=== PATIENT | female | born 1985 | race Caucasian/White ===

== ENCOUNTER 2024-05-07 08:00 | Emergency (ER) | payer OTHER ==
--- OUTSIDE RECORDS SUMMARY | 2024-05-07 08:05 | XMS REPORT | Continuity of Care Document ---
Author Name Unknown Address [address] [place] [address] [facility] Address [address] [place] [address] Care Team Providers Care [employer] Lot Name Role Phone Kylah Holland NP Primary Care Physician [phone] Que [place]ro Attending Clinician Unavailable Kashmir Bruner Attending Clinician Unavailable Maggi Mathur Attending Clinician Unavailable Jennie Attending Clinician Unavaila arik Allison Attending Clinician Unavail able Yusuf Attending Clinician Unavailab Ventura Bhat MD Attending Clinician [phone] VENTURA MATA Attending Clinician Unavailable Doctor Unassigned, [place] Attending Clinician U Malia Dennison July Attending Clinician Unavailyenifer Dubon MD Iris June Attending Clinician [phone] IRIS DUBON JUNE Attending Clinician Unavailab Que [place] Admitting Clinician Unavailable Maggi Mathur Admitting Clinician Unavailable Physician, No Primary Care Admitting Clinician U see KNOW, DOES_NOT Admitting Clinician Unavailable Jennie Admitting Clinician Unavaila arik Allison Admitting Clinician Unavail able Yusuf Admitting Clinician Unavailab VENTURA Bhat Admitting Clinician Unavailable Payers Payer Name Policy Type Policy Number Effective Date Expirati on Date Source [facility] () [id number] 2017 00:00:00 [facility] - SELECT ( - PPO) [id number] [facility] [id number] 2019 00:00:00 Problems Condition Name Condition Details Condition Category Status Onset Date Resolution Date Last Treatment Date Treating Clinician Comments Source Low back pain Low Back Pain Problem Active 05-24 00:00: 00 [facility] Lateral epicondyli tis of right humerus Lateral Epicondyli tis of Right Humerus Problem Active 05-24 00:00: 00 [facility] Spondylosi s with radiculopa thy Spondylosi s with Radiculopa thy Problem Active 05-24 00:00: 00 [facility] Inflammato ry polyarthro eric Inflammato ry Polyarthro eric Problem Active 10-30 00:00: 00 [facility] 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 Lumbosacra l Spondylosi s with Radiculopa thy Problem Active 10-30 00:00: 00 [facility] No known active problems No known active problems Disease [facility] Depression with anxiety Depression with anxiety Problem Active [facility] Other chronic pain Other chronic pain Problem Active [facility] Gastroesop hageal reflux disease, esophagiti s presence not specified Gastroesop hageal reflux disease, esophagiti s presence not specified Problem Active [facility] 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 Active [facility] 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 [facility] PTSD (post-trau matic stress disorder) PTSD (post-trau matic stress disorder) Problem Active [facility] Lumbar disc herniation Lumbar disc herniation Problem Active [facility] Zi' s thyroiditi s Zi' s thyroiditi s Problem Active [facility] Flu-like symptoms Flu-like symptoms Diagnosis Active [facility] Allergies, Adverse Reactions, Alerts Allergy Name Allergy Type Status Severity Reaction(s) Onset Date Inactive Date Treating Clinician Comments Source codeine DA Active U UNKNOWN 2022-02 00:00: 00 [facility] are [facility] CODIENE DA Active U NAUSEA VOMITING 2022-02 00:00: 00 [facility] are [facility] CODEINE DRUG INGREDI Active High N/V 04-23 00:00: 00 [facility] Codeine Propensi ty to adverse reaction s Active Nausea and/or Vomiting 04-23 00:00: 00 [facility] codeine DA Active MO 2016-02 00:00: 00 [facility] codeine DA Active MO NAUSEA AND SEVERE VOMITTING. 2016-02 00:00: 00 [facility] Codeine Allergy to substanc e Active Vomiting [facility] codeine Adverse Reaction Active Info Not Available [facility] Social History Social Habit Start Date Stop Date Quantity Comments Source Sexual orientation U [facility] Exposure to SARS-CoV-2 (event) 2020-12-21 00:00:00 2021-01-20 10:36:00 Not sure [facility] History of Social function 2021-01-20 00:00:00 2021-01-20 00:00:00 [facility] Tobacco use and exposure 2019-04-24 00:00:00 2019-04-24 00:00:00 Smokeless tobacco non-user [facility] Sex Assigned At 1985 00:00:00 1985 00:00:00 [facility] Smoking Status Start Date Stop Date Source Former Smoker [facility] Never smoked tobacco [facility] Medications Ordered Medication Name Filled Medication Name Start Date Stop Date Current Medication? Ordering Clinician Indication Dosage Frequency Signature (SIG) Comments Components Source sertraline HCl (ZOLOFT ORAL) 2020-02 10:54: 35 Yes Zoloft [facility] omeprazole 20 mg TbLD 2020-02 10:54: 35 Yes omeprazole Univer s [facility] Ferrous Sulfate (SLOW FE) 142 mg (45 mg iron) tablet 2020-02 10:54: 35 Yes Take by mouth. [facility] DULoxetine 60 mg capsule 2020-02 10:52: 25 01-20 00:00 :00 No 60mg Take 60 mg by mouth daily. [facility] L-LYSINE ORAL 2020-02 10:52: 16 01-20 00:00 :00 No Take by mouth daily. [facility] gabapentin 100 mg capsule 2020-02 10:52: 07 01-20 00:00 :00 No 100mg Take 100 mg by mouth as needed. [facility] levothyroxi ne sodium (SYNTHROID ORAL) 2020-02 10:51: 54 Yes 50ug Take 50 mcg by mouth daily. [facility] ketoconazol e 2 % shampoo 3- 00:00: 00 01-20 00:00 :00 No Apply to area(s) once daily as needed for Itching. [facility] clindamycin 1 % solution 3- 00:00: 00 01-20 00:00 :00 No [id number] Apply to affected area(s) 2 (two) times daily as needed for Rash or Itching. [facility] clobetasoL 0.05 % cream 2019- 3-04 00:00: 00 01-20 00:00 :00 No Apply to area(s) 2 (two) times daily. [facility] urea 40 % cream 3-04 00:00: 00 01-20 00:00 :00 No Apply to area(s) daily. [facility] Tamiflu Tamiflu 2018-02 00:00: 00 Yes Diogenes Quiroga 1 capsule [facility] L norgest/E estradiol-E estrad 0.15 mg-30 mcg (84)/10 mcg(7) tabs,3mos Take 1 tablet every day by oral route. L norgest/E estradiol-E estrad 0.15 mg-30 mcg (84)/10 mcg(7) tabs,3mos Take 1 tablet every day by oral route. No 1 Q1D L norgest/E estradiol- E estrad 0.15 mg-30 mcg (84)/10 mcg(7) tabs,3mos Take 1 tablet every day by oral route. [facility] lamotrigine 25 mg tablet TAKE TWO (2) TABLET(S) BY MOUTH AT BEDTIME. lamotrigine 25 mg tablet TAKE TWO (2) TABLET(S) BY MOUTH AT BEDTIME. No lamotrigin e 25 mg tablet TAKE TWO (2) TABLET(S) BY MOUTH AT BEDTIME. [facility] levothyroxi ne levothyroxi ne No levothyrox ine [facility] methocarbam ol 750 mg tablet TAKE ONE (1) TO TWO (2) TABLET(S) BY MOUTH THREE TIMES A DAY NEEDED FOR MUSCLE SPASMS OR PAIN. methocarbam ol 750 mg tablet TAKE ONE (1) TO TWO (2) TABLET(S) BY MOUTH THREE TIMES A DAY NEEDED FOR MUSCLE SPASMS OR PAIN. No methocarba mol 750 mg tablet TAKE ONE (1) TO TWO (2) TABLET(S) BY MOUTH THREE TIMES A DAY NEEDED FOR MUSCLE SPASMS OR PAIN. [facility] metoprolol tartrate 50 mg-hydrochl orothiazide 25 mg tablet 1 tablet every day by oral route. metoprolol tartrate 50 mg-hydrochl orothiazide 25 mg tablet 1 tablet every day by oral route. No 1 Q1D metoprolol tartrate 50 mg-hydroch lorothiazi de 25 mg tablet 1 tablet every day by oral route. [facility] omeprazole omeprazole No omeprazole [facility] Cymbalta Cymbalta Yes Diogenes Quiroga 1 capsule [facility] Synthroid Synthroid Yes Diogenes Quiroga 1 tablet on an empty stomach in the morning [facility] Pantoprazol e Sodium Pantoprazol e Sodium Yes Diogenes Quiroga 1 tablet [facility] Valtrex Valtrex Yes Diogenes Quiroga 1 tablet [facility] Gabapentin Gabapentin Yes Diogenes Quiroga (Prior Auth: Rx Ref#:[id number]) [facility] Vitamin D (Ergocalcif hermann) Vitamin D (Ergocalcif hermann) Yes Diogenes Quiroga (Prior Auth: Rx Ref#:[id number]) [facility] buspirone 5 mg tablet buspirone 5 mg tablet No buspirone 5 mg tablet [facility] diclofenac potassium 50 mg tablet TAKE 1 TABLET BY MOUTH TWICE DAILY NEEDED FOR PAIN / JOINT STIFFNESS diclofenac potassium 50 mg tablet TAKE 1 TABLET BY MOUTH TWICE DAILY NEEDED FOR PAIN / JOINT STIFFNESS No diclofenac potassium 50 mg tablet TAKE 1 TABLET BY MOUTH TWICE DAILY NEEDED FOR PAIN / JOINT STIFFNESS [facility] lamotrigine 25 mg tablet TAKE TWO (2) TABLET(S) BY MOUTH AT BEDTIME. lamotrigine 25 mg tablet TAKE TWO (2) TABLET(S) BY MOUTH AT BEDTIME. No lamotrigin e 25 mg tablet TAKE TWO (2) TABLET(S) BY MOUTH AT BEDTIME. [facility] levothyroxi ne 75 mcg tablet levothyroxi ne 75 mcg tablet No levothyrox ine 75 mcg tablet [facility] meloxicam 7.5 mg tablet Take 1 tablet every day by oral route. meloxicam 7.5 mg tablet Take 1 tablet every day by oral route. No 1 Q1D meloxicam 7.5 mg tablet Take 1 tablet every day by oral route. [facility] methocarbam ol 750 mg tablet TAKE ONE (1) TO TWO (2) TABLET(S) BY MOUTH THREE TIMES A DAY NEEDED FOR MUSCLE SPASMS OR PAIN. methocarbam ol 750 mg tablet TAKE ONE (1) TO TWO (2) TABLET(S) BY MOUTH THREE TIMES A DAY NEEDED FOR MUSCLE SPASMS OR PAIN. No methocarba mol 750 mg tablet TAKE ONE (1) TO TWO (2) TABLET(S) BY MOUTH THREE TIMES A DAY NEEDED FOR MUSCLE SPASMS OR PAIN. [facility] metoprolol succinate ER 25 mg tablet,exte nded release 24 hr TAKE ONE-HALF (1/2) TABLET(S) BY MOUTH DAILY. metoprolol succinate ER 25 mg tablet,exte nded release 24 hr TAKE ONE-HALF (1/2) TABLET(S) BY MOUTH DAILY. No metoprolol succinate ER 25 mg tablet,ext ended release 24 hr TAKE ONE-HALF (1/2) TABLET(S) BY MOUTH DAILY. [facility] tramadol 50 mg tablet TAKE ONE (1) TABLET(S) BY MOUTH EVERY SIX HOURS NEEDED FOR PAIN. tramadol 50 mg tablet TAKE ONE (1) TABLET(S) BY MOUTH EVERY SIX HOURS NEEDED FOR PAIN. No tramadol 50 mg tablet TAKE ONE (1) TABLET(S) BY MOUTH EVERY SIX HOURS NEEDED FOR PAIN. [facility] valacyclovi r 1 gram tablet valacyclovi r 1 gram tablet No valacyclov ir 1 gram tablet [facility] Vital Signs Vital Name Observation Time Observation Value Comments S ource BP Diastolic 2022-06-15 00:00:00 77 mm[Hg] [facility] Height 2022-06-15 00:00:00 67 [in_i] [facility] BMI (Body Mass Index) 2022-06-15 00:00:00 32.6 kg/m2 [facility] BP Systolic 2022-06-15 00:00:00 110 mm[Hg] [facility] Body Weight 2022-06-15 00:00:00 208 [lb_av] [facility] Body Weight 2022-05-24 00:00:00 209 [lb_av] [facility] Height 2022-05-24 00:00:00 67 [in_i] [facility] BMI (Body Mass Index) 2022-05-24 00:00:00 32.7 kg/m2 [facility] Systolic blood pressure 2021-01-20 16:51:00 135 mm[Hg] [facility] Diastolic blood pressure 2021-01-20 16:51:00 83 mm[Hg] [facility] Heart rate 2021-01-20 16:51:00 100 /min [facility] Respiratory rate 2021-01-20 16:51:00 20 /min [facility] Body height 2021-01-20 16:51:00 170.2 cm [facility] Body weight 2021-01-20 16:51:00 97.977 kg [facility] BMI 2021-01-20 16:51:00 33.83 kg/m2 [facility] Oxygen saturation in Arterial blood by Pulse oximetry 2021-01-20 16:51:00 98 /min [facility] Procedures Procedure Date / Time Performed Performing Clinician Source [id number] 2023-02-08 00:00:00 [facility] [id number] 2023-02-08 00:00:00 [facility] [id number] 2023-02-08 00:00:00 [facility] [id number] 2023-02-08 00:00:00 [facility] [id number] 2023-02-08 00:00:00 [facility] RADEX SPI LUMBOSAC MINIMUM 4 VIEWS 2022-05-24 00:00:00 [facility] TRANSTHORACIC ECHO (TTE) COMPLETE 2021-02-15 20:16:00 Ventura Mata [facility] ASSIGNMENT OF BENEFITS 2021-02-15 19:20:44 Docto r Unassigned, [place] [facility] HB ECG ROUTINE & RHYTHM STRIP 2021-01-20 17:00:11 Ventura Mata [facility] Laparoscopy 2015-07-25 00:00:00 Edwige Anne edical Eye Surgery [facility] Other [facility] Ophthalmologic Surgery [facility] Oral / Dental Surgery [facility] Plan of Care Planned Activity Planned Date Details Comments Source Diagnostic Test Pending 2022-06-15 00:00:00 [place] IgE Ab [Units/volume] in Serum [code = 6195-2] [facility] Instructions [facility] Encounters Start Date/Time End Date/Time Encounter Type Admission Type Attending Clinicians Care Facility Care Department Encounter ID Source 2023-03-08 17:24:00 2023-03-10 12:22:00 Inpatient EM Que Oro [facility] MAS [id number] [facility] [place] 2023-02-20 11:24:00 2023-02-20 13:39:00 Emergency EM Kashmir Bruner [facility] DALY [id number] [facility] 2023-02-08 00:11:00 2023-02-10 12:52:00 Inpatient Maggi Ochoa [facility] MEDI.01 [id number] [facility] 2023-02-07 00:00:00 2023-02-08 00:10:00 Outpatient CLOTILDE Mathur Morgan [facility] [id number] [facility] 2023-02-01 03:07:00 2023-02-01 03:07:00 Outpatient CLOTILDE Mathur Morgan [facility] ENDO [id number] [facility] 2022-06-15 00:00:00 2022-06-15 00:00:00 Outpatient GC_NATAN_ Landen_J PRIV PRIV [id number] [facility] 2022-06-15 00:00:00 2022-06-15 00:00:00 Lucas Schuster MD: [address] [place] [address] , Ph. [facility] [id number] [facility] 2022-06-14 00:00:00 2022-06-14 00:00:00 Outpatient GC_NATAN_ Landen_J PRIV PRIV [id number] [facility] 2022-06-13 00:00:00 2022-06-13 00:00:00 Outpatient GC_NAOMIC_ Landen_J PRIV PRIV [id number] [facility] 2022-06-13 00:00:00 2022-06-13 00:00:00 Outpatient GC_SWSUSYC_ Cooper_J PRIV PRIV [id number] [facility] 2022-06-08 00:00:00 2022-06-08 00:00:00 Outpatient PRIV PRIV [id number] [facility] 2022-05-24 00:00:00 2022-05-24 00:00:00 Outpatient FOG_Mehlhof Adrainna AO AO [id number] [facility] 2022-05-24 00:00:00 2022-05-24 00:00:00 Mainor Nieves MD: [id number] [place] [address] , Ph. [id number] [facility] [place] - F[facility] [id number] [facility] 2022-05-20 00:00:00 2022-05-20 00:00:00 Outpatient FOG_Mehlhof Adrianna AO AO [id number] [facility] 2022-05-12 00:00:00 2022-05-12 00:00:00 Outpatient FOG_Eliu_H Palak AO AO [id number] [facility] 2022-05-12 00:00:00 2022-05-12 00:00:00 Outpatient FOG_Eliu_H Palak AO AO [id number] [facility] 2022-01-25 00:00:00 2022-01-25 00:00:00 Outpatient GC_SWHAOMC_ Cooper_J [facility] [id number] [facility] 2021-02-16 00:00:00 2021-02-16 00:00:00 Patient Secure Ventura Mata [facility] [id number] [id number] [facility] 2021-02-15 13:23:53 2021-02-15 23:59:00 Outpatient Anjali VENTURA MATA [facility] [id number] [facility] 2021-02-15 13:23:53 2021-02-15 23:59:00 Hospital Encounter Ventura Mata [facility] [id number] [id number] [id number] [facility] 2021-02-15 00:00:00 2021-02-15 00:00:00 Orders Only Doctor Unassigned, [place] [facility] [id number] 350.1.13.10 4.2.7.2.686 [id number] [facility] 2021-02-01 09:00:00 2021-02-01 09:00:00 [facility] [id number] [facility] 2021-01-24 00:00:00 2021-01-24 00:00:00 Patient Secure Msg Malik [facility] [employer] [id number] 350.1.13.10 4.2.7.2.686 [id number] [facility] 2021-01-20 11:38:02 2021-01-20 23:59:00 [facility] [id number] 350.1.13.10 [id number] [id number] [facility] 2021-01-20 11:38:02 2021-01-20 23:59:00 [facility] [id number] [facility] 2021-01-20 11:38:02 2021-01-20 11:38:02 [facility] [id number] [facility] 2021-01-20 11:20:00 2021-01-20 11:31:59 [facility] [id number] [facility] 2021-01-20 10:37:24 2021-01-20 11:31:59 [facility] 1..840.114 350.1.13.10 4.2.7.2.686 [id number] [facility] 2021-01-20 00:00:00 2021-01-20 00:00:00 Orders Only Doctor Unassigned, [place] [facility] [id number] 350.1.13.10 4.2.7.2.686 [id number] [facility] 2021-01-13 09:00:00 2021-01-13 09:00:00 Outpatient Anjali SHANNON MATASILVINAROSEY [facility] [id number] [facility] 2021-01-05 00:00:00 2021-01-05 00:00:00 Orders Only Doctor Unassigned, [place] [facility] 1..840.114 350.1.13.10 4.2.7.2.686 [id number] [facility] 2019-11-01 14:30:00 2019-11-01 14:30:00 Outpatient Malia Nowak [facility]I [id number] [facility] 2019-04-24 14:24:09 2019-05-18 20:04:36 Office Visit Iris Dubon [facility] 1..840.114 350.1.13.10 4.2.7.2.686 [id number] 2019-04-24 14:40:00 2019-04-24 14:40:00 Outpatient IRIS JOHANSEN [facility] [id number] [facility] 2019-01-01 14:42:00 2019-01-01 14:42:00 Out[facility] [id number] 2019-01-01 14:30:00 2019-01-01 14:30:00 Outpatient [facility] [id number] [facility] 2018-10-17 08:30:00 2018-10-17 08:30:00 Outpatient [facility] [id number] [facility] 2018-08-02 10:00:00 2018-08-02 10:00:00 Outpatient [facility] [id number] [facility] 2018-06-21 14:45:00 2018-06-21 14:45:00 Outpatient [facility] [id number] [facility] 2018-02-27 13:45:00 2018-02-27 13:45:00 Outpatient [facility] [id number] [facility] 2018-01-29 11:15:00 2018-01-29 11:15:00 Outpatient [facility] [id number] [facility] Results Test Description Test Time Test Comments Results Result Co mments Source BASIC METABOLIC [id number] 07:09:00* Test Item Value Reference Range Interpretation Comme nts SODIUM (test code = NA) 139 mmol/L 136-145 N POTASSIUM (test code = K) 4.2 mmol/L 3.5-5.1 N CHLORIDE (test code = CL) 108 mmol/l 98-107 H CARBON DIOXIDE (test code = CO2) 23 mmol/L 20-31 N GLUCOSE (test code = GLU) 109 mg/dL 74-106 H BLOOD UREA NITROGEN (test code = BUN) < 5 mg/dL 9-23 L GLOMERULAR FILTRATION RATE (test code = GFR) >=60 max estimate mL/min >60 The Glomerular Filtration Rate is a calculated parameterbased on serum Creatinine, patient age and sex. GFR valuesless than 60 mL/min/1.73 square meters are indicative ofChronic Kidney Disease. Values less than 15 mL/min/1.73square meters indicate Kidney failure. The calculation forGFR is based on the CKD-EPI (202) calculation. This formulais race indifferent and is the recommended formula for GFRby the National Kidney Foundation for Adults.The GFR will not calculate if the sex is unknown or if thepatient's age is <18 years. CREATININE (test code = CREAT) 0.50 mg/dL 0.55-1.02 L CALCIUM (test code = CA) 8.1 mg/dL 8.7-10.4 L REPEAT RESULT 8. 1 [id number] 07:09:00* Test Item Value Reference Range Interpretation Comme nts PHOSPHOROUS (test code = PHOS) 3.2 mg/dL 2.4-5.1 N [id number] 07:09:00* Test Item Value Reference Range Interpretation Comme nts MAGNESIUM (test code = MAG) 1.8 mg/dL 1.6-2.6 N UA RFLX MICR CULT IF [id number] 19:27:00* Test Item Value Reference Range Interpretation Comme nts UA COLOR (test code = COLU) YELLOW DISCRIPT YELLOW UA APPEARANCE (test code = APPU) HAZY DISCRIPT CLEAR A UA GLUCOSE DIPSTICK (test code = DGLUU) NEGATIVE mg/dL NEGATIVE UA BILIRUBIN DIPSTICK (test code = BILU) MODERATE NEGATIVE A UA KETONE DIPSTICK (test code = KETU) >=80 mg/dL NEGATIVE A UA SPECIFIC GRAVITY (test code = SGU) 1.015 1.005-1.030 UA BLOOD DIPSTICK (test code = MAGNOLIA) NEGATIVE NEGATIVE UA PH DIPSTICK (test code = PRAFUL) 5.0 5.0-9.0 UA PROTEIN DIPSTICK (test code = PROU) TRACE mg/dL NEGATIVE UA UROBILINOGEN DIPSTICK (test code = URO) 0.2 mg/dL 0.2-1.0 UA NITRITE DIPSTICK (test code = JESÚS) NEGATIVE NEGATIVE UA LEUKOCYTE ESTERASE DIPSTICK (test code = LEUU) NEGATIVE NEGATIVE UA WBC (test code = WBCU) NONE SEEN #WBC/HPF 0-2 UA RBC (test code = RBCU) 0-2 #RBC/HPF 0-2 UA BACTERIA (test code = BACU) NONE SEEN /HPF NONE-TRACE UA SQUAMOUS CELLS (test code = SQU) OCCASIONAL /LPF NONE-TRACE Indication for culture: RiskForSepsis-no oth srcCOMPREHENSIVE METABOLIC PANEL 2023-03-08 19:08:00* Test Item Value Reference Range Interpretation Comme nts SODIUM (test code = NA) 138 mmol/L 136-145 N POTASSIUM (test code = K) 4.1 mmol/L 3.5-5.1 N CHLORIDE (test code = CL) 102 mmol/l 98-107 N CARBON DIOXIDE (test code = CO2) 26 mmol/L 20-31 N GLUCOSE (test code = GLU) 91 mg/dL 74-106 N BLOOD UREA NITROGEN (test code = BUN) 12 mg/dL 9-23 N GLOMERULAR FILTRATION RATE (test code = GFR) >=60 max estimate mL/min >60 The Glomerular Filtration Rate is a calculated parameterbased on serum Creatinine, patient age and sex. GFR valuesless than 60 mL/min/1.73 square meters are indicative ofChronic Kidney Disease. Values less than 15 mL/min/1.73square meters indicate Kidney failure. The calculation forGFR is based on the CKD-EPI (2020) calculation. This formulais race indifferent and is the recommended formula for GFRby the National Kidney Foundation for Adults.The GFR will not calculate if the sex is unknown or if thepatient's age is <18 years. CREATININE (test code = CREAT) 0.70 mg/dL 0.55-1.02 N TOTAL PROTEIN (test code = PROT) 7.6 g/dL 5.7-8.2 N ALBUMIN (test code = ALB) 4.5 g/dL 3.2-4.8 N CALCIUM (test code = CA) 9.9 mg/dL 8.7-10.4 N BILIRUBIN TOTAL (test code = BILT) 0.3 mg/dL 0.3-1.2 N SGOT/AST (test code = AST) 22 U/L <34 N SGPT/ALT (test code = ALT) 17 U/L 10-49 N ALKALINE PHOSPHATASE (test code = ALKP) 80.0 U/L 46-116 N [id number] 19:08:00* Test Item Value Reference Range Interpretation Comme nts LIPASE (test code = LIP) 71 U/L 12-53 H [id number] 19:08:00* Test Item Value Reference Range Interpretation Comme nts MAGNESIUM (test code = MAG) 1.9 mg/dL 1.6-2.6 N HCG SERUM [id number] 18:56:00* Test Item Value Reference Range Interpretation Comme nts HCG SERUM QUAL (test code = HCGQL) NEGATIVE NEGATIVE CBC W/MANUAL [id number] 18:35:00* Test Item Value Reference Range Interpretation Comme nts WHITE BLOOD CELL (test code = WBC) 13.4 x10 3/uL 4.8-10.8 H RED BLOOD CELL (test code = RBC) 4.59 x10 6/uL 4.20-5.40 N HEMOGLOBIN (test code = HGB) 13.0 g/dL 12.0-16.0 N HEMATOCRIT (test code = HCT) 41.0 % 37.0-47.0 N MEAN CELL VOLUME (test code = MCV) 89.3 fL 81.0-99.0 N MEAN CELL HGB (test code = MCH) 28.3 pg 27-31 N MEAN CELL HGB CONCENTRATION (test code = MCHC) 31.7 G/DL 33-36.5 L RED CELL DISTRIBUTION WIDTH (test code = RDW) 13.0 % 12.9-16.9 N PLATELET COUNT (test code = PLT) 261 x10 3/uL 150-440 N MEAN PLATELET VOLUME (test c ode = MPV) 10.0 fL 8.9-12.4 N TOTAL CELLS COUNTED (test co de = TCC) 100 #CELLS SEGMENTED NEUTROPHILS (test code = SEG) % 49-71 LYMPHOCYTE (test code = LYMPH) % 20-40 BASIC METABOLIC [id number] 13:04:00* Test Item Value Reference Range Interpretation Comme nts SODIUM (test code = NA) 142 mmol/L 136-145 N POTASSIUM (test code = K) 4.3 mmol/L 3.5-5.1 N CHLORIDE (test code = CL) 103 mmol/l 98-107 N CARBON DIOXIDE (test code = CO2) 24 mmol/L 20-31 N GLUCOSE (test code = GLU) 78 mg/dL 74-106 N BLOOD UREA NITROGEN (test code = BUN) 11 mg/dL 9-23 N GLOMERULAR FILTRATION RATE (test code = GFR) >=60 max estimate mL/min >60 The Glomerular Filtration Rate is a calculated parameterbased on serum Creatinine, patient age and sex. GFR valuesless than 60 mL/min/1.73 square meters are indicative ofChronic Kidney Disease. Values less than 15 mL/min/1.73square meters indicate Kidney failure. The calculation forGFR is based on the CKD-EPI (2020) calculation. This formulais race indifferent and is the recommended formula for GFRby the National Kidney Foundation for Adults.The GFR will not calculate if the sex is unknown or if thepatient's age is <18 years. CREATININE (test code = CREAT) 0.80 mg/dL 0.55-1.02 N CALCIUM (test code = CA) 9.3 mg/dL 8.7-10.4 N LIVER FUNCTION [id number] 13:04:00* Test Item Value Reference Range Interpretation Comme nts TOTAL PROTEIN (test code = PROT) 7.5 g/dL 5.7-8.2 N ALBUMIN (test code = ALB) 4.6 g/dL 3.2-4.8 N BILIRUBIN TOTAL (test code = BILT) 0.4 mg/dL 0.3-1.2 N BILIRUBIN DIRECT (test code = BILD) 0.1 mg/dL <0.3 N SGOT/AST (test code = AST) 25 U/L <34 N SGPT/ALT (test code = ALT) 21 U/L 10-49 N ALKALINE PHOSPHATASE (test c ode = ALKP) 89.0 U/L 46-116 N [id number] 13:04:00* Test Item Value Reference Range Interpretation Comme nts LIPASE (test code = LIP) 39 U/L 12-53 N [id number] 13:04:00* Test Item Value Reference Range Interpretation Comme nts TROPONIN-I (test code = TROPI) < 2.5 pg/mL 27.36-66.23 L HCG SERUM [id number] 12:56:00* Test Item Value Reference Range Interpretation Comme nts HCG SERUM QUAL (test code = HCGQL) NEGATIVE NEGATIVE CBC W/AUTO [id number] 12:42:00* Test Item Value Reference Range Interpretation Comme nts WHITE BLOOD CELL (test code = WBC) 11.2 x10 3/uL 4.8-10.8 H RED BLOOD CELL (test code = RBC) 4.96 x10 6/uL 4.20-5.40 N HEMOGLOBIN (test code = HGB) 14.1 g/dL 12.0-16.0 N HEMATOCRIT (test code = HCT) 42.2 % 37.0-47.0 N MEAN CELL VOLUME (test code = MCV) 85.1 fL 81.0-99.0 N MEAN CELL HGB (test code = MCH) 28.4 pg 27-31 N MEAN CELL HGB CONCENTRATION (test code = MCHC) 33.4 G/DL 33-36.5 N RED CELL DISTRIBUTION WIDTH (test code = RDW) 12.0 % 12.9-16.9 L PLATELET COUNT (test code = PLT) 278 x10 3/uL 150-440 N MEAN PLATELET VOLUME (test c ode = MPV) 11.3 fL 8.9-12.4 N NEUTROPHIL % (test code = NT%) 68.3 % 42.2-75.2 N LYMPHOCYTE % (test code = LY%) 21.0 % 20.5-51.1 N MONOCYTE % (test code = MO%) 7.0 % 1.7-9.3 N EOSINOPHIL % (test code = EO%) 3.0 % 0.0-7.0 N BASOPHIL % (test code = BA%) 0.3 % 0-2.5 N NEUTROPHIL # (test code = NT#) 7.65 x10 3/uL 1.80-7.70 N LYMPHOCYTE # (test code = LY#) 2.35 x10 3/uL 1.00-4.80 N MONOCYTE # (test code = MO#) 0.78 x10 3/uL 0.00-0.80 N EOSINOPHIL # (test code = EO#) 0.33 x10 3/uL 0.00-0.45 N BASOPHIL # (test code = BA#) 0.03 x10 3/uL 0.0-0.20 N - XR CHEST 2 [id number] 12:10:00 [facility] : 1985 Sex: FPatient Name: AZALIA DOS SANTOS Unit No: [id number] EXAMS: CPT CODE: [id number] XR CHEST 2 V 67935 Chest 2 views 02/20/2023 12:09 PM CLINICAL HISTORY: Pain COMPARISON: None available LOCATION: W1 FINDINGS: The lungs are clear, save for linear atelectasis or scarring in the left lung base. Cardiomediastinal contours are within normal limits. The central pulmonary vasculature is not engorged. The visualized skeleton is intact. IMPRESSION: No acute radiographic abnormalities. at 1210 Reported and signed by: LEELA HERNANDEZ M.D. CC: Kashmir Bruner MD; Maggi Mathur MD Technologist: ZOHREH CARREON RT(R) Fluoro Time: DAP(Gy m2): Air Kerma (mGy): Trscr Dt/Tm: 02/20/2023 (1210) by:[email or web address] Printed Date/Time: 02/20/2023 (1213) Name: AZALIA DOS SANTOS [facility] Phys: Kashmir Moncada MD [address] : 1985 Age: 37 Sex: [place] [address] Loc: P.ERS Exam Date: 02/20/2023 Status: REG ER PH: FAX: PAGE 1 Signed [id number] 18:05:00* Test Item Value Reference Range Interpretation Comme nts SURGICAL (test code = SR) RUN DATE: 02/09/23 [place] [facility] - LAB PAGE 1 RUN TIME: 1805 Specimen Inquiry RUN USER: INTERFACE PATIENT: AZALIA DOS SANTOS LOC: PLetty9S POD C U #: [id number] AGE/SX: 37/F ROOM: [facility] RE02/08/23[facility] DR: Maggi Mathur MD : [birth year] BED: 1 DIS: STATUS: ADM IN TLOC: SPEC #: [id number] RECD: 02/08/23 STATUS: DALLIN REByron #: [id number] ANTWON: 02/08/[address] [facility] [address]: Maggi Mathur MD ENTERED: 02/08/23 SP TYPE: SURGICAL OTHR DR: No Primary or Family PhysicianORDERED: 30986/2, 46867/4, ANATOMIC SPEC HISTOLOGY: TISSUE ID BLK PCS ZAHEER LEV / PROCEDURE DISPOSITION ____ ___ ___ ___ ___ LIVER, NOS A 1 2 STOMNT B 1 1 TISSUES: A. LIVER, NOS - Liver Biopsy B. STOMACH SUBTOTAL / TOTAL RESECTION NOT TUMOR/SLEEVE - Partial Stomach FINAL DIAGNOSIS A. LIVER, WEDGE BIOPSY: -Portion of subcapsular hepatic parenchyma with minimal macrovesicular steatosis and no significant inflammation (see comment). -Findings are insufficient for diagnosis of steatohepatitis. -No increase in fibrosis, stage 0 of 4. -See microscopic description. B. STOMACH, PARTIAL, SLEEVE GASTRECTOMY: -Portion of oxyntic mucosa lined stomach without significant histologic abnormality. -Negative for significant inflammation or helicobacter pylori organisms. Microscopic: Part A- Wedge biopsy of liver contains adequate number of portal tracts, whichshow minimal inflammation. Interface hepatitis is absent. The lobular parenchyma displaysno lymphocytic inflammation. Moderate macrovesicular steatosis is present in 5% of thebiopsy, with no acidophil bodies and no ballooned hepatocytes. The trichrome stain showsno increase in fibrosis. The reticulin stain shows no architectural distortion of hepaticparenchyma. The iron stain is negative. PAS stain is negative for intracytoplasmicglobules. GROSS DESCRIPTION A.Received in formalin, labeled with the patient's name, MRN number and "liver biopsy" is atan-brown portion of liver measuring 1.0 x 0.4 x 0.2 cm. Sectioning shows pink brownhomogenous cut surfaces and the specimen is submitted entirely in A 1. B.Received in formalin, labeled with the patient's name, MRN number and "partial stomach"is a partial gastrectomy specimen measuring 22.0 cm in length by 2.0-4.0 cm in diameter. The serosal surface is hutson- pink, focally congested and slightly hyperemic, with a minimalamount of perigastric fat. There is a staple line along one side.Upon opening there is amoderate amount of hemorrhagic material. The mucosa is hutson-pink and focally erythematous,no lesions or polyps are grossly seen. Communications Project Lead sections are submitted in B1. CONTINUED ON NEXT PAGE RUN DATE: 02/09/23 [facility] - LAB PAGE 2 RUN TIME: 1805 Specimen Inquiry RUN USER: INTERFACE SPEC #: [id number] PATIENT: AZALIA DOS SANTOS #[id number] (Continued) GROSS DESCRIPTION (Continued) Technical component performed at [facility] [facility], [facility], [address] Immunohistochemistry: This test was developed and its performancecharacteristics determined by this laboratory. It has not been approved nordoes it need approval by the [place] FDA. Appropriate positive and negative controlsare reviewed and judged to be acceptable. This laboratory is certified underthe Clinical Laboratory Improvement Amendments (CLIA-88) as qualified toperform high complexity clinical laboratory testing. CLINICAL INFORMATION Morbid Obesity Signed SIGNATURE ON FILE QuintinLux 02/09/23 6038 END OF REPORT BASIC METABOLIC [id number] 06:45:00* Test Item Value Reference Range Interpretation Comme nts SODIUM (test code = NA) 137 mmol/L 136-145 N POTASSIUM (test code = K) 4.0 mmol/L 3.5-5.1 N CHLORIDE (test code = CL) 107 mmol/l 98-107 N CARBON DIOXIDE (test code = CO2) 22 mmol/L 20-31 N GLUCOSE (test code = GLU) 150 mg/dL 74-106 H BLOOD UREA NITROGEN (test code = BUN) < 5 mg/dL 9-23 L GLOMERULAR FILTRATION RATE (test code = GFR) >=60 max estimate mL/min >60 The Glomerular Filtration Rate is a calculated parameterbased on serum Creatinine, patient age and sex. GFR valuesless than 60 mL/min/1.73 square meters are indicative ofChronic Kidney Disease. Values less than 15 mL/min/1.73square meters indicate Kidney failure. The calculation forGFR is based on the CKD-EPI (2020) calculation. This formulais race indifferent and is the recommended formula for GFRby the National Kidney Foundation for Adults.The GFR will not calculate if the sex is unknown or if thepatient's age is <18 years. CREATININE (test code = CREAT) 0.60 mg/dL 0.55-1.02 N CALCIUM (test code = CA) 8.2 mg/dL 8.7-10.4 L [id number] 06:45:00* Test Item Value Reference Range Interpretation Comme nts PHOSPHOROUS (test code = PHOS) 1.0 mg/dL 2.4-5.1 L [id number] 06:45:00* Test Item Value Reference Range Interpretation Comme nts MAGNESIUM (test code = MAG) 1.7 mg/dL 1.6-2.6 N CBC W/AUTO [id number] 06:22:00* Test Item Value Reference Range Interpretation Comme nts WHITE BLOOD CELL (test code = WBC) 14.2 x10 3/uL 4.8-10.8 H RED BLOOD CELL (test code = RBC) 4.52 x10 6/uL 4.20-5.40 N HEMOGLOBIN (test code = HGB) 13.1 g/dL 12.0-16.0 N HEMATOCRIT (test code = HCT) 38.6 % 37.0-47.0 N MEAN CELL VOLUME (test code = MCV) 85.4 fL 81.0-99.0 N MEAN CELL HGB (test code = MCH) 29.0 pg 27-31 N MEAN CELL HGB CONCENTRATION (test code = MCHC) 33.9 G/DL 33-36.5 N RED CELL DISTRIBUTION WIDTH (test code = RDW) 11.9 % 12.9-16.9 L PLATELET COUNT (test code = PLT) 246 x10 3/uL 150-440 N MEAN PLATELET VOLUME (test code = MPV) 10.9 fL 8.9-12.4 N NEUTROPHIL % (test code = NT%) 92.0 % 42.2-75.2 H LYMPHOCYTE % (test code = LY%) 5.5 % 20.5-51.1 L MONOCYTE % (test code = MO%) 1.8 % 1.7-9.3 N EOSINOPHIL % (test code = EO%) 0.0 % 0.0-7.0 N BASOPHIL % (test code = BA%) 0.1 % 0-2.5 N NEUTROPHIL # (test code = NT#) 13.03 x10 3/uL 1.80-7.70 H LYMPHOCYTE # (test code = LY#) 0.78 x10 3/uL 1.00-4.80 L MONOCYTE # (test code = MO#) 0.26 x10 3/uL 0.00-0.80 N EOSINOPHIL # (test code = EO#) 0.00 x10 3/uL 0.00-0.45 N BASOPHIL # (test code = BA#) 0.01 x10 3/uL 0.0-0.20 N UR HCG [id number] 06:11:00* Test Item Value Reference Range Interpretation Comme nts UR HCG QUAL (test code = HCGQLU) NEGATIVE NEGATIVE COMPREHENSIVE METABOLIC [id number] 13:43:00* Test Item Value Reference Range Interpretation Comme nts SODIUM (test code = NA) 137 mmol/L 136-145 N POTASSIUM (test code = K) 3.9 mmol/L 3.5-5.1 N CHLORIDE (test code = CL) 103 mmol/l 98-107 N CARBON DIOXIDE (test code = CO2) 26 mmol/L 20-31 N GLUCOSE (test code = GLU) 88 mg/dL 74-106 N BLOOD UREA NITROGEN (test code = BUN) 12 mg/dL 9-23 N GLOMERULAR FILTRATION RATE (test code = GFR) >=60 max estimate mL/min >60 The Glomerular Filtration Rate is a calculated parameterbased on serum Creatinine, patient age and sex. GFR valuesless than 60 mL/min/1.73 square meters are indicative ofChronic Kidney Disease. Values less than 15 mL/min/1.73square meters indicate Kidney failure. The calculation forGFR is based on the CKD-EPI (2020) calculation. This formulais race indifferent and is the recommended formula for GFRby the National Kidney Foundation for Adults.The GFR will not calculate if the sex is unknown or if thepatient's age is <18 years. CREATININE (test code = CREAT) 0.80 mg/dL 0.55-1.02 N TOTAL PROTEIN (test code = PROT) 7.7 g/dL 5.7-8.2 N ALBUMIN (test code = ALB) 4.8 g/dL 3.2-4.8 N CALCIUM (test code = CA) 9.4 mg/dL 8.7-10.4 N BILIRUBIN TOTAL (test code = BILT) 0.3 mg/dL 0.3-1.2 N SGOT/AST (test code = AST) 30 U/L <34 N SGPT/ALT (test code = ALT) 29 U/L 10-49 N ALKALINE PHOSPHATASE (test code = ALKP) 83.0 U/L 46-116 N PROTHROMBIN [id number] 13:34:00* Test Item Value Reference Range Interpretation Comme nts PROTHROMBIN TIME PATIENT (test code = PTP) 11.9 SECONDS 10.3-12.9 N INTERNATIONAL NORMAL RATIO (test code = INR) 1.07 0.9-1.11 N INR goals are individualized based on patient specificfactors. The following are only general guidelines: Indications: INR Goal:1. Treatment of venous thromboembolism and 2.0 - 3.0 systemic anticoagulation in a variety of conditions, including atrial fibrillation and mechanical heart valves 2. Mechanical mitral and tricuspid valves, 2.5 - 3.5 systemic anticoagulation for high-risk conditions THROMBOPLASTIN TIME [id number] 13:34:00* Test Item Value Reference Range Interpretation Comme nts THROMBOPLASTIN TIME PARTIAL (test code = PTT) 38.7 secs 23.8-34.8 H INTERPRETATIVE D GASTON: Therapeutic range: Unfractionated Heparin: 60-90 seconds Argatroban: 60-90 seconds UA RFLX MICR CULT IF [id number] 13:28:00* Test Item Value Reference Range Interpretation Comme nts UA COLOR (test code = COLU) YELLOW DISCRIPT YELLOW UA APPEARANCE (test code = APPU) CLEAR DISCRIPT CLEAR UA GLUCOSE DIPSTICK (test code = DGLUU) NEGATIVE mg/dL NEGATIVE UA BILIRUBIN DIPSTICK (test code = BILU) NEGATIVE NEGATIVE UA KETONE DIPSTICK (test code = KETU) >=80 mg/dL NEGATIVE A UA SPECIFIC GRAVITY (test code = SGU) 1.010 1.005-1.030 UA BLOOD DIPSTICK (test code = MAGNOLIA) TRACE NEGATIVE A UA PH DIPSTICK (test code = PRAFUL) 6.0 5.0-9.0 UA PROTEIN DIPSTICK (test code = PROU) NEGATIVE mg/dL NEGATIVE UA UROBILINOGEN DIPSTICK (test code = URO) 0.2 mg/dL 0.2-1.0 UA NITRITE DIPSTICK (test code = JESÚS) NEGATIVE NEGATIVE UA LEUKOCYTE ESTERASE DIPSTICK (test code = LEUU) NEGATIVE NEGATIVE UA WBC (test code = WBCU) NONE SEEN #WBC/HPF 0-2 UA RBC (test code = RBCU) NONE SEEN #RBC/HPF 0-2 UA BACTERIA (test code = BACU) NONE SEEN /HPF NONE-TRACE UA SQUAMOUS CELLS (test code = SQU) 1+ /LPF NONE-TRACE A Indication for culture: Dysuria/FrequencySpecimen Description: CLEAN CATCHSpec Comments: PRE OPCBC W/AUTO [id number] 13:24:00* Test Item Value Reference Range Interpretation Comme nts WHITE BLOOD CELL (test code = WBC) 9.9 x10 3/uL 4.8-10.8 N RED BLOOD CELL (test code = RBC) 4.71 x10 6/uL 4.20-5.40 N HEMOGLOBIN (test code = HGB) 13.6 g/dL 12.0-16.0 N HEMATOCRIT (test code = HCT) 40.6 % 37.0-47.0 N MEAN CELL VOLUME (test code = MCV) 86.2 fL 81.0-99.0 N MEAN CELL HGB (test code = MCH) 28.9 pg 27-31 N MEAN CELL HGB CONCENTRATION (test code = MCHC) 33.5 G/DL 33-36.5 N RED CELL DISTRIBUTION WIDTH (test code = RDW) 11.9 % 12.9-16.9 L PLATELET COUNT (test code = PLT) 272 x10 3/uL 150-440 N MEAN PLATELET VOLUME (test c ode = MPV) 9.3 fL 8.9-12.4 N NEUTROPHIL % (test code = NT%) 72.9 % 42.2-75.2 N LYMPHOCYTE % (test code = LY%) 19.5 % 20.5-51.1 L MONOCYTE % (test code = MO%) 4.2 % 1.7-9.3 N EOSINOPHIL % (test code = EO%) 2.9 % 0.0-7.0 N BASOPHIL % (test code = BA%) 0.2 % 0-2.5 N NEUTROPHIL # (test code = NT#) 7.18 x10 3/uL 1.80-7.70 N LYMPHOCYTE # (test code = LY#) 1.92 x10 3/uL 1.00-4.80 N MONOCYTE # (test code = MO#) 0.41 x10 3/uL 0.00-0.80 N EOSINOPHIL # (test code = EO#) 0.29 x10 3/uL 0.00-0.45 N BASOPHIL # (test code = BA#) 0.02 x10 3/uL 0.0-0.20 N [id number] 11:02:00* Test Item Value Reference Range Interpretation Comme nts SURGICAL (test code = SR) RUN DATE: 02/03/23 [facility] - LAB PAGE 1 RUN TIME: 1102 Specimen Inquiry RUN USER: INTERFACE MARCELO ENT: AZALIA DOS SANTOS LOC: RICHARD U #: [id number] AGE/SX: 37/F ROOM: RE02/01/23[facility] DR: Maggi Mathur MD : [birth year] BED: DIS: STATUS: DEP [facility] TLOC: SPEC #: [id number] RECD: 02/01/23 STATUS: DALLIN REByron #: [id number] ANTWON: 02/01/[address] [facility] [address]: Maggi Mathur MD ENTERED: 02/01/23 SP TYPE: SURGICAL OTHR DR: Self Referred No Primary Care Physician Undefined ProviderORDERED: 48317/2, [id number], ANATOMIC SPEC HISTOLOGY: TISSUE ID BLK PCS ZAHEER LEV / PROCEDURE DISPOSITION ____ ___ ___ ___ ___ ANTRUM A 1 3 GASTRO ESOPH B 1 3 TISSUES: A. ANTRUM - Antrum Bx B. GASTRO ESOPHAGEAL - GE Junction Bx FINAL DIAGNOSIS A. STOMACH, ANTRUM, ENDOSCOPIC BIOPSY: - Mild chronic inactive gastritis. - Negative for Helicobacter by immunostain (see comment). - Negative for intestinal metaplasia, dysplasia, and malignancy. B. GASTROESOPHAGEAL JUNCTION, ENDOSCOPIC BIOPSY: - Squamocolumnar mucosa with chronic inflammation. - Negative for intraepithelial eosinophilia. - Negative for intestinal metaplasia, dysplasia, and malignancy. COMMENT: Chronic gastritis was identified on initial histologic examination of specimen A,raising the possibility of Helicobacter gastritis. However, since organisms are not seenon routine H E stain, Helicobacter immunostain is performed to exclude the possibilityof infection. GROSS DESCRIPTION A. Received in formalin, labeled with the patient's name, MRN number and "antrum Bx" is asingle hutson-pink soft tissue fragment measuring 1.0 cm in greatest dimension (height is 0.1cm), specimen is filtered and submitted in toto in A1. B. Specimen is received in formalin, labeled with the patient's name, MRN number and "GEjunction Bx" is a single hutson-pink soft tissue fragment measuring 0.3 cm in greatestdimension, filtered submitted in toto in B1. Technical component performed at [facility] [facility], [place] [facility], [address] CONTINUED ON NEXT PAGE RUN DATE: 02/03/23 [facility] - LAB PAGE 2 RUN TIME: 1102 Specimen Inquiry RUN USER: INTERFACE SPEC #: [id number] PATIENT: AZALIA DOS SANTOS BETTINA #[id number] (Continued) ------- GROSS DESCRIPTION (Continued) Immunohistochemistry: This test was developed and its performancecharacteristics determined by this laboratory. It has not been approved nordoes it need approval by the [place] FDA. Appropriate positive and negative controlsare reviewed and judged to be acceptable. This laboratory is certified undert Clinical Laboratory Improvement Amendments (CLIA-88) as qualified toperform high complexity clinical laboratory testing. MICROSCOPIC DESCRIPTION Unless gross only, the diagnosis is based upon microscopic examination. CLINICAL INFORMATION Hiatal Hernia, Gastritis, Esophagitis ------- Signed SIGNATURE ON FILE Que Chang Vika 02/03/23 1102 END OF REPORT UR HCG [id number] 10:18:00* Test Item Value Reference Range Interpretation Comme nts UR HCG QUAL (test code = HCGQLU) NEGATIVE NEGATIVE - MRI L-SPINE W/O [id number] 16:16:00Patient Name: AZALIA ROBERTSON Unit No: [id number] EXAMS: CPT CODE: [id number] MRI L-SPINE W/O CONT 28465 DIAGNOSIS: 1. At L1-2 there is no evidence for disc bulge or herniation, bony canal or foraminal stenosis. 2. At L2-3 there is no evidence for disc bulge or herniation, bony canal or foraminal stenosis. 3. At L3-4 there is no evidence for disc bulge or herniation, bony canal or foraminal stenosis. 4. At L4-5 there is 3 mm of left foraminal asymmetric disc bulging with moderate narrowing of the left neural foramen and mild to moderate narrowing on the right. Mild narrowing of the central canal is seen with facet and ligamentum flavum hypertrophic and degenerative change. 5. At L5-S1 thereis no evidence for disc bulge or herniation, bony canal or foraminal stenosis. COMMENT: COMPARISON:No prior exams available. Scans were performed in the sagittal and axial planes utilizing T1, T2 and inversion recovery images. Schmorl's node formation is seen at L1-2. The upper 4 discs are mildly desiccated. Disc configurations are as described. Spondylitic changes are as noted. The conus is in the expected location. The description these findings assumes a normal count of 5 lumbar type vertebra. at 1616 Reported and signed by: Dave Shay MD CC: Malia Nowak MD Technologist: JEANNETTE RIGGINS RT(R) Transcribed D/ (1616) tNEFTALYL [facility] NAME: AZALIA ROBERTSON [address] [facility] PHYS: Malia Vitale MD : 1985 AGE: 34 SEX: F [place] [address] LOC: Y.MRI PHONE #: [phone] EXAM DATE: 11/01/2019 STATUS: REG CLI FAX #: [phone] RAD #: D/C DT PAGE 1 Signed Report Patient Name: AZALIA ROBETRSON Unit No: [id number] EXAMS: CPT CODE:[id number] MRI L-SPINE W/O CONT 22816 (Continued) Orig Print D/T: S: 11/01/2019 (1619) [facility] NAME: AZALIA ROBERTSON [address] [facility] PHYS: Malia Vitale MD : 1985AGE: 34 SEX: F [place] [address] LOC: CASSANDRA PHONE #: [phone] EXAM DATE: 11/01/2019 STATUS: RACHID CLLesa FAX #: [phone] RAD #: D/C DT PAGE 2 Signed Report Notes Date/Time Note Provider Source 2023-03-10 09:44:00 [facility] ([facility] Med Order Sheet REPORT #: [id number] REPORT STATUS: Signed DATE: 03/10/23 TIME: 943 PATIENT: AZALIA DOS SANTOS UNIT #: [id number] ROOM #: [facility] BED: 1 : [birth year] AGE: 37 SEX: F ATTEND: Que Oro MD ADM AUTHOR: George Aguirre APRN ATTENTION *EDITS and/or ADDENDA must be made in Patient Keeper for this note. * * Edits and ammendments created in [facility] are not visible * * in Patient Keeper or the legal medical record (HPF). * Discharge Medication Reconciliation DISCHARGE MEDICATION LIST busPIRone Tab (Buspar Tab) Dose: 5 MG PO BID calcium citrate tablet Dose: Oral - TAKES 200MG TID Route: ORAL L-Lysine tablet (lysine) Dose: 500 MG PO BID lamoTRIgine Tab (LaMICtal Tab) Dose: 100 MG PO DAILY Levothyroxine Tab (Synthroid Tab) Dose: 75 MCG PO DAILY METHYL FOLATE Dose: PO - TAKES 1000MCG DAILY Metoprolol Succinate XL Tab (Toprol XL Tab) Dose: 25 MG PO DAILY Omeprazole Dose: Oral - TAKES 40MG DAILY Route: ORAL ULTRA SOLO WITH IRON Dose: PO - TAKES DAILY VITAMIN D3 WITH K2 Dose: PO - TAKES DAILY VITRONC Dose: PO - TAKES 65MG DAILY Lidocaine Oral Soln 2% (Xylocaine Oral Soln 2%) Dose: 15ML PO Before meals, Disp: 3 x 100 mL bottle, Refills: 1 Nystatin Oral Liquid (Mycostatin Oral Liquid) Dose: 5 ML Swish Swal QID, Disp: 3 x 60 mL bottle, Refills: 0 STOPPED HOSPITAL MEDICATIONS Dc'd: Acetaminophen Oral Liquid (Tylenol Oral Liquid) 650MG PO Q4H PRN pain 1-3/temp > 100.5/headacheDc'd: Dexamethasone Inj (Decadron Inj) 4MG IV Q6HRDc'd: diphenhydrAMINE Inj (Benadryl Inj) 25MG IV Q6H PRN itching/rashDc'd: Enalaprilat Inj (Vasotec Inj) 2.5MG IV Q6H PRN sbp greater than 160Dc'd: Enoxaparin 40 mg/0.4 ml Inj (Lovenox 40 mg/0.4 ml Inj) 40MG SubQ DAILYDc'd: Fluconazole Tab (Diflucan Tab) 200 MG PO Now ONCEDc'd: Ketorolac Inj (Toradol Inj) 15MG IV Q6HR PRN pain scale 7-10Dc'd: Lidocaine Oral Soln 2% (Xylocaine Oral Soln 2%) 15ML PO Q3H PRN dysphagiaDc'd: LORazepam Inj (Ativan Inj) 0.5MG IV Q6H PRN agitation or anxietyDc'd: Mag/Al/Simeth Oral Liquid (Maalox Max Oral Liquid) 30ML PO Q6H PRN indigestion/heartburnDc'd: Melatonin 6MG PO BEDTIME PRN insomniaDc'd: Ondansetron Inj (Zofran Inj) 4MG IV Q4H PRN nausea and vomitingDc'd: Prochlorperazine Inj (Compazine Inj) 5MG IV Q4H PRN see special instructionsDc'd: Sodium Chloride 0.9% (NS) 1000ML 100 MLS/HR IV Dc'd: traMADol Tab (Ultram Tab) 50MG PO Q4H PRN pain scale 4-6 (use 1st) at 0944 ATTENTION *EDITS and/or ADDENDA must be made in Patient Keeper for this note. * * Edits and ammendments created in HTP are not visible * * in Patient Keeper or the legal medical record ([facility]). * RPT #: [id number] END OF REPORT [facility] 2023-03-10 09:44:00 [facility] ([facility]) Internal Med. D/C Summary REPORT #: [id number] REPORT STATUS: Signed DATE: 03/10/23 TIME: 943 PATIENT: AZALIA DOS SANTOS UNIT #: [id number] ROOM #: P.0711 BED: 1 : 84 AGE: 37 SEX: F ATTEND: Que Oro MD ADM AUTHOR: George Aguirre APRN ATTENTION *EDITS and/or ADDENDA must be made in Patient Keeper for this note. * * Edits and ammendments created in HTP are not visible * * in Patient Keeper or the legal medical record ([facility]). * -- CO-SIGNATURE -- COMMENTS: Patient seen and examined Plan of care discussed with Dr. Mathur Patient's questions answered to her satisfaction Agree with the findings as detailed by George Aguirre APRN Discharge plans are enumerated below Total time spent coordinating discharge care > 55 mins Signed in PatientKeeper by QUE ORO MD on 03/10/23 at 23:51 -- PROBLEMS/PROCEDURES -- ADMISSION DATE: 03/08/23 ADMITTING DIAGNOSES: - Acute epigastric pain - Dehydration - Depression with anxiety - Dysphagia - Elevated lipase - Hepatomegaly - Hiatal hernia with gastroesophageal reflux disease and esophagitis - Hypertension - Hypothyroidism - Iron deficiency anemia - Leukocytosis - Obesity, Class II, BMI 35-39.9 - MAGDIEL (obstructive sleep apnea) DISCHARGE DATE: 03/10/23 DISCHARGE DIAGNOSES: - Acute epigastric pain - Dehydration - Depression with anxiety - Dysphagia - Elevated lipase - Hepatomegaly - Hiatal hernia with gastroesophageal reflux disease and esophagitis - Hypertension - Hypothyroidism - Iron deficiency anemia - Leukocytosis - Obesity, Class II, BMI 35-39.9 - MAGDIEL (obstructive sleep apnea) -- HOSPITAL COURSE -- HOSPITAL COURSE: Patient is a 37 year old woman with PMH of hypothyroidism, depression with anxiety, obstructive sleep apnea, hypertension, abnormal uterine bleeding, iron deficiency anemia, hiatal hernia with reflux esophagitis, and morbid obesity who underwent a robotic-assisted laparoscopic sleeve gastrectomy, hiatal hernia repair, and liver wedge biopsy by Dr. Mathur on 02/09/24. Patient struggled with postoperative incisional pain and nausea. Symptoms improved with medical management. She otherwise had an uncomplicated postoperative course, and was discharged home on 02/10/23. Patient returned to the Emergency Department (03/08/23) with complaint of unbearable pain and nauseas when trying to swallow solid food. Liquids were somewhat tolerable. Symptoms started about 2 weeks prior to admission, and had become progressively worse. She was afraid to eat due to severity of her symptoms. Labs showed an elevated Lipase level at 71, and elevated WBC at 13.4k. CT Abdomen/Pelvis showed a recurrent small hiatal hernia. Patient was admitted for further evaluation and management. Her symptoms improved with a trial of viscous lidocaine. Patient was empirically treated for possible contributing esophageal fungal infection. She is now able to tolerate a pureed diet. Discussed with Dr. Yu. Vasquez for discharge. -- DISCHARGE MEDICATIONS -- ALLERGIES: codeine (Unknown - Allergy) CODIENE (Unknown - Allergy) [EXTERNAL] codeine CODEINE (UNKNOWN - External allergies are for display only, consider adding to medical record for drug interaction check) DISCHARGE MEDICATIONS: Please refer to Discharge Medication list for a complete list of discharge medications busPIRone Tab (Buspar Tab) 5 MG PO BID calcium citrate tablet Oral (TAKES 200MG TID Route: ORAL) L-Lysine tablet (lysine) 500 MG PO BID lamoTRIgine Tab (LaMICtal Tab) 100 MG PO DAILY Levothyroxine Tab (Synthroid Tab) 75 MCG PO DAILY Lidocaine Oral Soln 2% (Xylocaine Oral Soln 2%) 15ML PO Before meals, Disp: 3 x 100 mL bottle, Refills: 1 METHYL FOLATE PO METHYL FOLATE (TAKES 1000MCG DAILY) Metoprolol Succinate XL Tab (Toprol XL Tab) 25 MG PO DAILY Nystatin Oral Liquid (Mycostatin Oral Liquid) 5 ML Swish Swal QID, Disp: 3 x 60 mL bottle, Refills: 0 Omeprazole Oral (TAKES 40MG DAILY Route: ORAL) ULTRA SOLO WITH IRON PO ULTRA SOLO WITH IRON (TAKES DAILY) VITAMIN D3 WITH K2 PO VITAMIN D3 WITH K2 (TAKES DAILY) VITRONC PO VITRONC (TAKES 65MG DAILY) -- DISCHARGE INSTRUCTIONS -- ADMISSION ORDERS: Discharge Follow Up Details: Consulting provider 1:: MAGGI MATHUR MD Consulting provider 1:: . Consult phone:: [phone] Consult follow up timeframe:: In 1-2 weeks Consult special instructions:: Patient to call for follow up appointment. PK DISCHARGE ORDERS: DC Parameters and Instructions Details: Discharge to:: Home/Self Care Meds to be Given:(Enter specifics): Fluconazole 200 mg po x 1, Nystatin 5 ml swish and swallow x 1 Notify attending when discharge parameter met:: No Diet:: Bariatric pureed diet. Additional Discharge Routines:: PCP Follow-Up, [employer] Follow-Up PCP follow up timeframe:: In 1-2 weeks PCP special instructions:: Patient to call for follow up appointment. Details: DC Order - No eCQM ADDTIONAL DISCHARGE INSTRUCTIONS: Emergency Instructions: The patient was instructed to present to the nearest Emergency Department or call 911 should their symptoms return or worsen.; -- OBJECTIVE -- VITALS (03/09 09:44 - 03/10 09:44): Temperature C: 36.5 (36.5 - 37.0) Temperature source: Oral Pulse Rate 77 (68 - 96) Respiratory rate: 1 (1 - 19) Blood pressure: 99/62 (99/62 - 114/78) I/Os (03/09 07:00 - 03/10 07:00): Net 1,836.00 Intake 3,036.00 Output 1,200 -EXAM- GENERAL: alert and cooperative, appears comfortable. In no distress. Obese HEAD: Normocephalic, atraumatic. EYES: PERRL, EOM intact, conjunctiva and sclera clear, without nystagmus, lids normal. EARS: normal canals, grossly normal hearing. NOSE: No deformity, no discharge, no inflammation, no lesions. MOUTH: Oropharynx without deformities or lesions, normal mucosa. NECK: No masses, no thyromegaly, no abnormal cervical nodes, trachea midline. CHEST: Grossly normal appearance. LUNGS: Clear bilaterally with normal respiratory effort. HEART: Regular rate and rhythm, normal S1, S2, no murmurs, no rubs, no gallops, no clicks. ABDOMEN: Soft, non-tender, no organomegaly, no masses noted. MUSCULOSKELETAL: No deformity, no scoliosis noted of thoracic or lumbar spine, joint ROM grossly normal EXTREMITIES: No clubbing, no cyanosis, no edema. NEUROLOGICAL: No focal deficits, cranial nerves II-XII grossly intact, normal sensation, normal coordination, normal muscle strength, normal tone. PULSES: Pulses normal in all extremities. SKIN: Intact without significant lesions, or rashes. LYMPH NODES: No significant node adenopathy. PSYCHIATRIC: Alert and oriented to time, person, place. Normal mood and affect, intact judgment and insight. -- DATA -- LABS BASIC METABOLIC PANEL (03/10/23 04:59) SODIUM 139 POTASSIUM 4.2 CHLORIDE 108H H CARBON DIOXIDE 23 GLUCOSE 109H H BLOOD UREA NITROGEN < 5L L GLOMERULAR FILTRATION RATE >=60 max estimate CREATININE 0.50L L CALCIUM 8.1 D L CBC W/AUTO DIFF (03/10/23 04:59) WHITE BLOOD CELL 13.6H H RED BLOOD CELL 4.23 HEMOGLOBIN 12.3 HEMATOCRIT 37.0 MEAN CELL VOLUME 87.5 MEAN CELL HGB 29.1 MEAN CELL HGB CONCENTRATION 33.2 RED CELL DISTRIBUTION WIDTH 12.8 L PLATELET COUNT 249 MEAN PLATELET VOLUME 11.1 NEUTROPHIL % 86.7 H LYMPHOCYTE % 8.4 L MONOCYTE % 4.0 EOSINOPHIL % 0.0 BASOPHIL % 0.1 NEUTROPHIL # 11.77 H LYMPHOCYTE # 1.14 MONOCYTE # 0.54 EOSINOPHIL # 0.00 BASOPHIL # 0.01 MAG (03/10/23 04:59) MAGNESIUM 1.8 PHOS (03/10/23 04:59) PHOSPHOROUS 3.2 Signed in PatientKeeper by George Aguirre APRN on 03/10/23 at 09:53 Cosigned by QUE ORO MD on 03/10/23 at 23:51 at 2351 at 2351 ATTENTION *EDITS and/or ADDENDA must be made in Patient Keeper for this note. * * Edits and ammendments created in [facility] are not visible * * in Patient Keeper or the legal medical record ([facility]). * RPT #: [id number] END OF REPORT [facility] 2023-03-09 11:09:00 [facility] ([facility]) Internal Med. Progress Note REPORT #: [id number] REPORT STATUS: Signed DATE: 03/09/23 TIME: 1109 PATIENT: AZALIA DOS SANTOS UNIT #: [id number] ROOM #: [employer] BED: 1 : 84 AGE: 37 SEX: F ATTEND: Que Oro MD ADM AUTHOR: George Aguirre APRN ATTENTION *EDITS and/or ADDENDA must be made in Patient Keeper for this note. * * Edits and ammendments created in HTP are not visible * * in Patient Keeper or the legal medical record ([facility]). * -- CO-SIGNATURE -- COMMENTS: Patient seen and examined at bedside Plan of care discussed with patient, all questions answered to her satisfaction Agree with the findings as detailed by George Aguirre [employer]ER Plans for the multiple complex medical problems are enumerated below Total time spent direct care, counseling and coordinating care > 55 mins Signed in PatientKeeper by QUE ORO MD on 03/09/23 at 23:12 -- ASSESSMENT AND PLAN -- PROBLEMS: 1: Dysphagia A/P: Tolerating bariatric clear liquid diet, but reports pain with solid food. Trial of viscous lidocaine Decadron 4mg IV q6hr 2: Acute epigastric pain A/P: CT scan shows small hiatal hernia (03/08/23) Pain management Protonix [address] Mathur consulted 3: Obesity, Class II, BMI 35-39.9 A/P: s/p robotic-assisted laparoscopic sleeve gastrectomy (02/08/23) Banana bag given 4: Hypertension A/P: Continue Metoprolol XL 25 mg daily Enaliprilat prn 5: Hiatal hernia with gastroesophageal reflux disease and esophagitis A/P: s/p robotic-assisted laparoscopic hiatal hernia repair (02/08/23) CT scan shows small hiatal hernia (03/08/23) Protonix 6: MAGDIEL (obstructive sleep apnea) A/P: non-compliant with CPAP 7: Hypothyroidism A/P: Continue levothyroxine 8: Iron deficiency anemia A/P: Monitor Hgb 9: Depression with anxiety A/P: Continue Buspar and Lamictal 10: Hepatomegaly A/P: s/p robotic-assisted laparoscopic liver wedge biopsy to r/o SIMS (02/08/23) 11: Leukocytosis A/P: Remains afebrile. No e/o sepsis at present. Monitor 12: Elevated lipase A/P: Continue IV hydration Monitor -- SUBJECTIVE -- PATIENT NARRATIVE: No acute events overnight. Tolerating bariatric clear liquid diet, but reports pain with solid food. Will start trial of viscous lidocaine -- OBJECTIVE -- VITALS (03/08 11:09 - 03/09 11:09): Temperature F: 98.1 Temperature C: 36.7 (36.5 - 36.9) Temperature source: Oral Pulse Rate 86 (84 - 97) Respiratory rate: 18 (16 - 18) Blood pressure: 116/82 (95/68 - 128/89) I/Os (03/08 07:00 - 03/09 07:00): Net 2,180.00 Intake 3,280.00 Output 1,100 -EXAM- GENERAL: alert and cooperative, appears comfortable. In no distress. Obese HEAD: Normocephalic, atraumatic. EYES: PERRL, EOM intact, conjunctiva and sclera clear, without nystagmus, lids normal. EARS: normal canals, grossly normal hearing. NOSE: No deformity, no discharge, no inflammation, no lesions. MOUTH: Oropharynx without deformities or lesions, normal mucosa. NECK: No masses, no thyromegaly, no abnormal cervical nodes, trachea midline. CHEST: Grossly normal appearance. LUNGS: Clear bilaterally with normal respiratory effort. HEART: Regular rate and rhythm, normal S1, S2, no murmurs, no rubs, no gallops, no clicks. ABDOMEN: Soft, non-tender, no organomegaly, no masses noted. MUSCULOSKELETAL: No deformity, no scoliosis noted of thoracic or lumbar spine, joint ROM grossly normal EXTREMITIES: No clubbing, no cyanosis, no edema. NEUROLOGICAL: No focal deficits, cranial nerves II-XII grossly intact, normal sensation, normal coordination, normal muscle strength, normal tone. PULSES: Pulses normal in all extremities. SKIN: Intact without significant lesions, or rashes. LYMPH NODES: No significant node adenopathy. PSYCHIATRIC: Alert and oriented to time, person, place. Normal mood and affect, intact judgment and insight. -- DATA -- MEDICATIONS PANTOPRAZOLE with/in SODIUM CHLORIDE 0.9% 40 MG IV DAILY DEXAMETHASONE SOD PHOSPHATE 4 MG IV Q6HR MULTIVITAMINS with/in THIAMINE HCL, FOLIC ACID, SODIUM CHLORIDE 0.9% 10 ML IV Q24H LEVOTHYROXINE SODIUM 75 MCG PO DAILY@0600 ACETAMINOPHEN 650 MG PO Q4H PRN lamoTRIgine 100 MG PO DAILY ENALAPRILAT 2.5 MG IV Q6H PRN MAG HYDROX/AL HYDROX/SIMETH 30 ML PO Q6H PRN NA CHLOR 0.9%/POT CHLORIDE 20 MEQ IV .Q10H ENOXAPARIN SODIUM 40 MG SUBQ DAILY METOPROLOL SUCCINATE 25 MG PO DAILY busPIRone HCL 5 MG PO BID ONDANSETRON HCL/PF 4 MG IV Q4H PRN PROCHLORPERAZINE EDISYLATE 5 MG IV Q4H PRN traMADol HCL 50 MG PO Q4H PRN LORazepam 0.5 MG IV Q6H PRN MELATONIN 6 MG PO BEDTIME PRN diphenhydrAMINE HCL 25 MG IV Q6H PRN KETOROLAC TROMETHAMINE 15 MG IV Q6HR PRN LABS UA RFLX MICR amp;CULT IF INDICATED (03/08/23 19:10) UA COLOR YELLOW UA APPEARANCE HAZY H UA GLUCOSE DIPSTICK NEGATIVE UA BILIRUBIN DIPSTICK MODERATE A UA KETONE DIPSTICK >=80 A UA SPECIFIC GRAVITY 1.015 UA BLOOD DIPSTICK NEGATIVE UA PH DIPSTICK 5.0 UA PROTEIN DIPSTICK TRACE UA UROBILINOGEN DIPSTICK 0.2 UA NITRITE DIPSTICK NEGATIVE UA LEUKOCYTE ESTERASE DIPSTICK NEGATIVE UA WBC NONE SEEN UA RBC 0-2 UA BACTERIA NONE SEEN UA SQUAMOUS CELLS OCCASIONAL MAG (03/08/23 18:13) MAGNESIUM 1.9 CBC W/MANUAL DIFF (03/08/23 18:13) WHITE BLOOD CELL 13.4H H RED BLOOD CELL 4.59 HEMOGLOBIN 13.0 HEMATOCRIT 41.0 MEAN CELL VOLUME 89.3 MEAN CELL HGB 28.3 MEAN CELL HGB CONCENTRATION 31.7 L RED CELL DISTRIBUTION WIDTH 13.0 PLATELET COUNT 261 MEAN PLATELET VOLUME 10.0 TOTAL CELLS COUNTED 100 COMPREHENSIVE METABOLIC PANEL (03/08/23 18:13) SODIUM 138 POTASSIUM 4.1 CHLORIDE 102 CARBON DIOXIDE 26 GLUCOSE 91 BLOOD UREA NITROGEN 12 GLOMERULAR FILTRATION RATE >=60 max estimate CREATININE 0.70 TOTAL PROTEIN 7.6 ALBUMIN 4.5 CALCIUM 9.9 BILIRUBIN TOTAL 0.3 SGOT/AST 22 SGPT/ALT 17 ALKALINE PHOSPHATASE 80.0 LIP (03/08/23 18:13) LIPASE 71 H HCGQL (03/08/23 18:13) HCG SERUM QUAL NEGATIVE Signed in PatientKeeper by GEORGE AGUIRRE APRN on 03/09/23 at 11:25 Cosigned by QUE ORO MD on 03/09/23 at 23:12 at 2312 at 2312 ATTENTION *EDITS and/or ADDENDA must be made in Patient Keeper for this note. * * Edits and ammendments created in [facility] are not visible * * in Patient Keeper or the legal medical record ([facility]). * [facility] #: [id number] END OF REPORT [facility] 2023-03-08 21:16:00 [facility] ([facility]) Hospitaldi [facility] REPORT #: [id number] REPORT STATUS: Signed DATE: 03/08/23 TIME: 2115 PATIENT: SOFI DOS SANTOSI UNIT #: [id number] ROOM #: P.0711 BED: 1 : 84 AGE: 37 SEX: F ATTEND: Que Oro MD ADM AUTHOR: Rosi Lagos CNP ATTENTION *EDITS and/or ADDENDA must be made in Patient Keeper for this note. * * Edits and ammendments created in [facility] are not visible * * in Patient Keeper or the legal medical record ([facility]). * -- CO-SIGNATURE -- COMMENTS: Discussed with Dr. Mathur - tessie Patient seen and examined. History taken bedside. Plan of care discussed with patient, all questions answered to her satisfaction Agree with the findings as detailed by TESS Lagos Plans for the multiple complex medical problems are enumerated below Total time spent direct care, counseling and coordinating care > 75 mins Signed in PatientKeeper by QUE ORO MD on 03/08/23 at 22:40 -- HISTORY -- ADMISSION DATE: 2023-03-08 PRIMARY CARE PROVIDER: MAGGI MATHUR MD CHIEF COMPLAINT: pain when swallowing food HPI: Patient is a 37 year old woman with PMH of hypothyroidism, depression with anxiety, MAGDIEL, HTN, abnormal uterine bleeding, iron deficiency anemia, hiatal hernia with reflux esophagitis, and morbid obesity who underwent a robotic-assisted laparoscopic sleeve gastrectomy, hiatal hernia repair, and liver wedge biopsy by Dr. Mathur on 02/09/24. Patient struggled with postoperative incisional pain and nausea. Symptoms improved with medical management. She otherwise had an uncomplicated postoperative course. Patient was discharged home on 02/10/23. Patient reported to the Emergency Department today, 03/08/23, with complaint of unbearable pain when trying to swallow food. Liquids are somewhat tolerable. She reports becoming nauseous when she is trying to eat and now is afraid to eat. These symptoms started about 2 weeks ago and have become progressively worse. Labs on arrival showed an elevated Lipase level at 71 and elevated WBC at 13.4k. CT Abd/Pel was remarkable for a recurrent small hiatal hernia. Patient will be admitted for further evaluation and care. History obtained from patient and chart review. bedside when I visiting with patient. PAST MEDICAL HISTORY: as stated above ectopic PAST SURGICAL HISTORY: as above and left fallopian tube removal (ectopic) FAMILY HISTORY: non contributory -SOCIAL HISTORY- MARITAL STATUS: LIVING SITUATION: with spouse ADDITIONAL SOCIAL HISTORY: denies etoh, tobacco, and drug usage -- ALLERGIES/HOME MEDS -- ALLERGIES: codeine (Unknown - Allergy) CODIENE (Unknown - Allergy) [EXTERNAL] codeine CODEINE (UNKNOWN - External allergies are for display only, consider adding to medical record for drug interaction check) HOME MEDICATIONS: busPIRone Tab (Buspar Tab) 5 MG PO BID calcium citrate tablet Oral L-Lysine tablet (lysine) 500 MG PO BID lamoTRIgine Tab (LaMICtal Tab) 100 MG PO DAILY Levothyroxine Tab (Synthroid Tab) 75 MCG PO DAILY Med Rec Order Def PO SPECIAL INST Med Rec Order Def PO SPECIAL INST Med Rec Order Def PO SPECIAL INST Med Rec Order Def PO SPECIAL INST Metoprolol Succinate XL Tab (Toprol XL Tab) 25 MG PO DAILY Omeprazole Oral -- SUBJECTIVE -- -REVIEW OF SYSTEMS- GENERAL: negative for fevers and malaise EYES: Negative for blurry vision. No diplopia. EARS/NOSE/THROAT: Negative for sore throat. No otalgia. No rhinorrhea. BREAST: Negative for change in shape, swelling, masses, nipple discharge, pain, skin changes. RESPIRATORY: Negative for dyspnea or wheeze. No cough. CARDIOVASCULAR: Negative for chest pain or palpitations. No extremity swelling. GASTROINTESTINAL: pain when swallowing, feels like food gets stuck and moves through very slowly GENITOURINARY: Negative for dysuria, frequency, or urgency. No gross hematuria. MUSCULOSKELETAL: Negative for joint stiffness, pain, or arthralgias. SKIN: Negative for rashes. No pruritus. NEUROLOGICAL: Negative for headache. No vertigo. Denies paresthesias. PSYCHIATRIC: Negative for specific complaints. ENDOCRINE: Negative for cold intolerance, heat intolerance, polyphagia, polydipsia, polyuria, weight change, fatigue. HEMATALOGIC / LYMPHORETICULAR: Negative for excessive bleeding, unusual masses. ALLERGIC / IMMUNOLOGIC: Negative for heat/cold intolerance, polydipsia, or polyuria. -- OBJECTIVE -- VITALS (03/07 21:16 - 03/08 21:16): Temperature F: 98.1 Temperature C: 36.9 Temperature source: Oral Pulse Rate 89 (89 - 97) Respiratory rate: 16 Blood pressure: 115/89 (115/82 - 128/89) -EXAM- GENERAL: alert and cooperative, appears comfortable. In no distress. Obese HEAD: Normocephalic, atraumatic. EYES: PERRL, EOM intact, conjunctiva and sclera clear, without nystagmus, lids normal. EARS: normal canals, grossly normal hearing. NOSE: No deformity, no discharge, no inflammation, no lesions. MOUTH: Oropharynx without deformities or lesions, normal mucosa. NECK: No masses, no thyromegaly, no abnormal cervical nodes, trachea midline. CHEST: Grossly normal appearance. LUNGS: Clear bilaterally with normal respiratory effort. HEART: Regular rate and rhythm, normal S1, S2, no murmurs, no rubs, no gallops, no clicks. ABDOMEN: Soft, minimally tender, incisions clean and dry. MUSCULOSKELETAL: No deformity, no scoliosis noted of thoracic or lumbar spine, joint ROM grossly normal, normal gait and station. EXTREMITIES: No clubbing, no cyanosis, no edema. NEUROLOGICAL: No focal deficits, cranial nerves II-XII grossly intact, normal sensation, normal coordination, normal muscle strength, normal tone. PULSES: Pulses normal in all extremities. SKIN: Intact without significant lesions, or rashes. LYMPH NODES: No significant node adenopathy. PSYCHIATRIC: Alert and oriented to time, person, place. Normal mood and affect, intact judgment and insight. -- DATA -- LABS UA RFLX MICR amp;CULT IF INDICATED (03/08/23 19:10) UA COLOR YELLOW UA APPEARANCE HAZY H UA GLUCOSE DIPSTICK NEGATIVE UA BILIRUBIN DIPSTICK MODERATE A UA KETONE DIPSTICK >=80 A UA SPECIFIC GRAVITY 1.015 UA BLOOD DIPSTICK NEGATIVE UA PH DIPSTICK 5.0 UA PROTEIN DIPSTICK TRACE UA UROBILINOGEN DIPSTICK 0.2 UA NITRITE DIPSTICK NEGATIVE UA LEUKOCYTE ESTERASE DIPSTICK NEGATIVE UA WBC NONE SEEN UA RBC 0-2 UA BACTERIA NONE SEEN UA SQUAMOUS CELLS OCCASIONAL MAG (03/08/23 18:13) MAGNESIUM 1.9 CBC W/MANUAL DIFF (03/08/23 18:13) WHITE BLOOD CELL 13.4H H RED BLOOD CELL 4.59 HEMOGLOBIN 13.0 HEMATOCRIT 41.0 MEAN CELL VOLUME 89.3 MEAN CELL HGB 28.3 MEAN CELL HGB CONCENTRATION 31.7 L RED CELL DISTRIBUTION WIDTH 13.0 PLATELET COUNT 261 MEAN PLATELET VOLUME 10.0 TOTAL CELLS COUNTED 100 COMPREHENSIVE METABOLIC PANEL (03/08/23 18:13) SODIUM 138 POTASSIUM 4.1 CHLORIDE 102 CARBON DIOXIDE 26 GLUCOSE 91 BLOOD UREA NITROGEN 12 GLOMERULAR FILTRATION RATE >=60 max estimate CREATININE 0.70 TOTAL PROTEIN 7.6 ALBUMIN 4.5 CALCIUM 9.9 BILIRUBIN TOTAL 0.3 SGOT/AST 22 SGPT/ALT 17 ALKALINE PHOSPHATASE 80.0 LIP (03/08/23 18:13) LIPASE 71 H HCGQL (03/08/23 18:13) HCG SERUM QUAL NEGATIVE -- ASSESSMENT AND PLAN -- PROBLEMS: 1: Acute epigastric pain A/P: Decadron 4mg IV Q6hr antiemetics IVF pain management PPI + Maalox CT scan 03/08/23 shows small hiatal hernia Bariatric CLD Dr. Mathur consulted 2: Obesity, Class II, BMI 35-39.9 A/P: s/p RAL sleeve gastrectomy 02/08/23 banana bag ordered 3: Hypertension A/P: continue Metoprolol XL 25 mg daily enaliprilat prn 4: Hiatal hernia with gastroesophageal reflux disease and esophagitis A/P: s/p RAL hiatal hernia repair 02/08/[address] scan 03/08/23 shows small hiatal hernia 5: MAGDIEL (obstructive sleep apnea) A/P: non-compliant with CPAP usage CPAP ordered HS 6: Hypothyroidism A/P: continue synthroid 7: Iron deficiency anemia A/P: trend Hgb 8: Depression with anxiety A/P: continue Buspar and lamictal 9: Hepatomegaly A/P: s/p RAL liver wedge biopsy to r/o SIMS 02/08/23 CONSULTANTS: DVT- Prophylaxis- Lovenox Signed in PatientKeeper by ROSI LAGOS CNP on 03/08/23 at 21:47 Cosigned by QUE ORO MD on 03/08/23 at 22:40 at 2240 at 2240 ATTENTION *EDITS and/or ADDENDA must be made in Patient Keeper for this note. * * Edits and ammendments created in [facility] are not visible * * in Patient Keeper or the legal medical record ([facility]). * RPT #: [id number] END OF REPORT [facility] 2023-03-08 20:11:00 [facility] ([facility]) Med Order Sheet REPORT #: [id number] REPORT STATUS: Signed DATE: 03/08/23 TIME: 2010 PATIENT: AZALIA DOS SANTOS UNIT #: [id number] ROOM #: [facility] BED: 2 : 84 AGE: 37 SEX: F ATTEND: Que Oro MD ADM AUTHOR: Rosi Lagos CNP ATTENTION *EDITS and/or ADDENDA must be made in Patient Keeper for this note. * * Edits and ammendments created in [facility] are not visible * * in Patient Keeper or the legal medical record ([facility]). * Admission Medication Reconciliation -- CONTINUED / CHANGED HOME MEDICATIONS -- Home: lamoTRIgine Tab (LaMICtal Tab) 100 MG PO DAILY Hosp: lamoTRIgine Tab (LaMICtal Tab) 100 MG PO DAILY Home: busPIRone Tab (Buspar Tab) 5 MG PO BID Hosp: busPIRone Tab (Buspar Tab) 5 MG PO BID Home: Metoprolol Succinate XL Tab (Toprol XL Tab) 25 MG PO DAILY Hosp: Metoprolol Succinate XL Tab (Toprol XL Tab) 25 MG PO DAILY Home: Levothyroxine Tab (Synthroid Tab) 75 MCG PO DAILY Hosp: Levothyroxine Tab (Synthroid Tab) 75 MCG PO DAILY -- STOPPED HOME MEDICATIONS -- Home: VITAMIN D3 WITH K2 PO SPECIAL INST (TAKES DAILY) Home: VITRONC PO SPECIAL INST (TAKES 65MG DAILY) Home: ULTRA SOLO WITH IRON PO SPECIAL INST (TAKES DAILY) Home: Omeprazole Oral (TAKES 40MG DAILY Route: ORAL) Home: METHYL FOLATE PO SPECIAL INST (TAKES 1000MCG DAILY) Home: L-Lysine tablet (lysine) 500 MG PO BID Home: calcium citrate tablet Oral (TAKES 200MG TID Route: ORAL) at 2011 ATTENTION *EDITS and/or ADDENDA must be made in Patient Keeper for this note. * * Edits and ammendments created in [facility] are not visible * * in Patient Keeper or the legal medical record ([facility]). * [facility] #: [id number] END OF REPORT [facility] 2023-03-08 17:26:00 [facility] ([facility]) EMERGENCY PROVIDER REPORT REPORT#:[id number] REPORT STATUS: Signed DATE:03/08/23 TIME: 1725 PATIENT: AZALIA DOS SANTOS UNIT #: [id number] ROOM: BED: AGE: 37 SEX: F PCP PHYS: Maggi Mathur MD SERVICE AUTHOR: Jose Cruz MD * ALL edits or amendments must be made on the electronic/computer document * HPI-Abd Pain F Under 40 Free Text HPI Notes Free Text HPI Notes Azalia Dos Santos is a 37-year-old woman with history of anxiety, hypothyroidism, recent gastric sleeve who presents ER with upper abd pain for the last 1.5wks. states it feels like she is swallowing rocks when she advanced her diet to soft. able to tolerate liquids with less discomfort. General Confirmed Patient Yes Patient Type New patient Initial Greet Date/Time 03/08/231724 Presentation Chief Complaint Abdominal pain Risk-Abd Pain F Under 40 )( Ectopic Risk factors reviewed Review of Systems ROS Statements All systems rev neg except as marked. Complete sys rev neg except as marked. Basic Review of Systems Basic ROS EYES: No redness, ENT: No sore throat, HEM: No bleeding/bruising, SKIN : No rash, NEURO: No change MS, NEURO: No focal deficit, PSYCH: NL thought content Past Medical History - Adult Stated Complaint UPPER ABD. PAIN Allergies Coded Allergies: codeine (UNKNOWN 02/08/23) Uncoded Allergies: CODIENE (NAUSEA VOMITING 02/01/23) Home Medications Reported Medications Lysine (L-Lysine) 500 MG PO BID Omeprazole Dr (Omeprazole) Lamotrigine (Lamictal) 100 MG PO DAILY [METHYL FOLATE] Buspirone 5 MG PO BID [VITRONC] Levothyroxine (Synthroid) 75 MCG PO DAILY Metoprolol Succ Xl (Toprol Xl) 25 MG PO DAILY [ULTRA SOLO WITH IRON] Calcium Citrate (Calcitrate) [VITAMIN D3 WITH K2] Pt reports no significant: Past medical history, Past surgical history, Family history, Social history Physical Exam Vital Signs Vital Signs First Documented: Result Date Time Pulse Ox 100 03/08 1724 B/P 128/82 03/084 B/P Mean 97 03/08 1723 O2 Delivery Room air 03/08 1723 Temp 36.7 03/08 1723 Pulse 97 03/08 1723 Resp 03/08 Last Documented: Result Date Time Pulse Ox 100 03/08 1724 B/P 128/82 03/08 1723 B/P Mean 97 03/08 1723 O2 Delivery Room air 03/08 1723 Temp 36.7 03/08 1723 Pulse 97 03/08 1723 Resp 03/08 Review of Vital Signs Reviewed Basic Physical Exam Basic PE HEAD: Atraumatic/NC, EYES: PERRL, conj clear, ENT: Membranes moist, NECK: Supple, EXT: No gross abnormality, SKIN: No rashes, warm/dry, NEURO: alert oriented, NEURO: gross movement NL, PSYCH: NL thought content Interpretation Diagnostics Lab Results Interpretation Considerations Independ review imaging, Reviewed prior records Results Laboratory Tests 03/08/231812: [Embedded Image Not Available] Laboratory Tests: 03/08 Chemistry Sodium (136 - 145 mmol/L) 138 Potassium (3.5 - 5.1 mmol/L) 4.1 Chloride (98 - 107 mmol/l) 102 Carbon Dioxide (20 - 31 mmol/L) 26 BUN (9 - 23 mg/dL) 12 Creatinine (0.55 - 1.02 mg/dL) 0.70 Glomerular Filtr Rate (>60 mL/min) >=60 max estimate Glucose (74 - 106 mg/dL) 91 Calcium (8.7 - 10.4 mg/dL) 9.9 Magnesium (1.6 - 2.6 mg/dL) 1.9 Total Bilirubin (0.3 - 1.2 mg/dL) 0.3 AST (<34 U/L) 22 ALT (10 - 49 U/L) 17 Total Alk Phosphatase (46 - 116 U/L) 80.0 Total Protein (5.7 - 8.2 g/dL) 7.6 Albumin (3.2 - 4.8 g/dL) 4.5 Serum HCG, Qual (NEGATIVE) NEGATIVE Hematology WBC (4.8 - 10.8 x10 3/uL) 13.4 H RBC (4.20 - 5.40 x10 6/uL) 4.59 Hgb (12.0 - 16.0 g/dL) 13.0 Hct (37.0 - 47.0 %) 41.0 MCV (81.0 - 99.0 fL) 89.3 MCH (27 - 31 pg) 28.3 MCHC (33 - 36.5 G/DL) 31.7 L RDW (12.9 - 16.9 %) 13.0 Plt Count (150 - 440 x10 3/uL) 261 MPV (8.9 - 12.4 fL) 10.0 Total Counted (#CELLS) 100 Lab Imaging Statement Laboratory radiographic studies reviewed and considered in the medical decision-making. Re-Evaluation MDM )( Re-Evaluation/Progress #1 )( Re-Eval Status Improved ED Course Medication(s) Ordered Medication(s) Ordered: Diagnostic Agents Sig/John Start time Last Medication Dose Route Stop Time Status Admin Diatrizoate Meglum/ 30 ML X1ED STA 03/08 172 DC 03/08 Diatrizoate Sod PO 03/08 1728 1834 Electrolytic, Caloric, And Jeyson Sig/John Start time Last Medication Dose Route Stop Time Status Admin Sodium Chloride 1,000 ML ONCE ONE 03/08 1900 UNV IV 03/09 0459 Sodium Chloride 1,000 ML X1ED STA 03/08 1726 DC 03/08 IV 03/08 1825 1835 Eye, Ear, Nose And Throat (Een Sig/John Start time Last Medication Dose Route Stop Time Status Admin Dexamethasone Sodium 10 MG X1ED STA 03/08 1804 DC 03/08 Phosphate IV 03/08 1805 1834 Gastrointestinal Drugs Sig/John Start time Last Medication Dose Route Stop Time Status Admin Ondansetron HCl 4 MG X1ED STA 03/08 1726 DC 03/08 IV 03/08 1727 1834 Patient Discharge Departure Vital Signs/Condition Vital Signs First Documented: Result Date Time Pulse Ox 100 03/08 1724 B/P 128/82 03/08 1724 B/P Mean 97 03/08 1724 O2 Delivery Room air 03/08 172 Temp 36.7 03/08 1724 Pulse 97 03/08 1724 Resp 16 03/08 1723 Last Documented: Result Date Time Pulse Ox 100 03/08 1723 B/P 128/82 03/08 1723 B/P Mean 97 03/08 1723 O2 Delivery Room air 03/08 1723 Temp 36.7 03/08 1723 Pulse 97 03/08 1724 Resp 16 03/08 1723 All vital signs available at the time of this entry have been reviewed. Clinical Impression Clinical Impression Primary Impression: Dehydration Disposition Decision Hospitalize Hosp Physician Name Que Oro MD Hosp Physician Hospitalist Request Time 1857 Request Date 03/08/23 )( Accepts Hospitalization Yes )( Reason for Hospitalization dehydration )( Accepted Time 1857 )( Accepted Date 03/08/23 Call Information will see patient at 1900 RPT #:[id number] END OF REPORT [facility] 2023-02-20 11:44:00 [facility] ([facility]) EMERGENCY PROVIDER REPORT REPORT#:[id number] REPORT STATUS: Signed DATE:02/20/23 TIME: 1144 PATIENT: AZALIA DOS SANTOS UNIT #: [id number] ROOM: BED: AGE: 37 SEX: F PCP PHYS: Maggi Mathur MD SERVICE AUTHOR: Kashmir Bruner MD * ALL edits or amendments must be made on the electronic/computer document * HPI-General Illness General Confirmed Patient Yes Initial Greet Date/Time 02/20/23 1125 PCP Kareen Presentation Chief Complaint __ (shoulder area pain) Hx Obtained From Patient Free Text HPI Notes Free Text HPI Notes Azalia Dos Santos is a 37-year-old woman with history of anxiety, hypothyroidism, recent gastric sleeve who presents ER with left shoulder area pain since last night. No trauma or falls, nontraumatic pain. Sometimes worse with certain positions. She is not feeling short of breath. No history of heart attack or stroke or PE or DVT. She states same symptoms when she had a ectopic many years ago but she denies being at this time. She is not taking any pain medication after surgery any more. Dc from [facility] 02/10/23 Review of Systems ROS Statements All systems rev neg except as marked. Review of Systems Constitutional Denies: Chills, Fatigue, Fever. Respiratory Denies: Cough, non-productive, Cough, productive, Hemoptysis, Wheezing. Cardiovascular Denies: Dyspnea on exertion, Edema, Orthopnea, Palpitations. GI Denies: Abdominal pain, Diarrhea, Nausea, Rectal pain, Vomiting. Musculoskeletal Reports: Extremity pain (shoulder left). Denies: Back pain, Extremity swelling, Joint pain, Joint swelling, Lumbar pain, Neck pain. Past Medical History - Adult Stated Complaint LEFT SHOULDER PAIN STARTED LAST NIGHT Allergies Coded Allergies: codeine (UNKNOWN 02/08/23) Uncoded Allergies: CODIENE (NAUSEA VOMITING 02/01/23) Home Medications Reported Medications Lysine (L-Lysine) 500 MG PO BID Omeprazole Dr (Omeprazole) Lamotrigine (Lamictal) 100 MG PO DAILY [METHYL FOLATE] Buspirone 5 MG PO BID [VITRONC] Levothyroxine (Synthroid) 75 MCG PO DAILY Metoprolol Succ Xl (Toprol Xl) 25 MG PO DAILY [ULTRA SOLO WITH IRON] Calcium Citrate (Calcitrate) [VITAMIN D3 WITH K2] Review of Nursing Notes Rapid assess notes rev Pt reports no significant: Family history, Social history Smoking status for patients 13 years old or older: Former Smoker Physical Exam Vital Signs Vital Signs First Documented: Result Date Time Pulse Ox 98 02/20 1125 B/P 118/80 02/20 1125 B/P Mean 92 02/20 1125 O2 Delivery Room air 02/20 1125 Temp 36.7 02/20 1125 Pulse 98 02/20 1125 Resp 18 02/20 1125 Last Documented: Result Date Time Pulse Ox 98 02/20 1336 B/P 122/76 02/20 1336 Pulse 82 02/20 1336 Resp 17 02/20 1336 B/P Mean 92 02/20 1125 O2 Delivery Room air 02/20 1125 Temp 36.7 02/20 1125 Review of Vital Signs Reviewed Basic Physical Exam Basic PE GEN: Well appearing/NAD, HEAD: Atraumatic/NC, EYES: PERRL, conj clear, ENT: Membranes moist, NECK: Supple, SKIN: No rashes, warm/dry, NEURO: alert oriented, NEURO: gross movement NL, PSYCH: NL thought content Physical Exam Resp/Chest Respiratory/Chest Atraumatic, Breath sounds NL, Breath sounds = bilat, No respiratory distress, No retractions, No stridor, No chest tenderness, No chest wall deformity, No crepitus Cardiovascular Cardiovascular Heart rate NL, Regular rhythm, Heart sounds NL, Cap refill not delayed, Peripheral circulation NL Abdomen/GI Abdomen/GI Soft, Non-tender, No guarding, No rebound Text/Dict Notes well healed surgical sites MS Lower Extrem Lower Ext/Pelvis/MS Atraumatic, Inspection NL, No swelling, Non-tender, No erythema, No edema Interpretation Diagnostics Lab Results Interpretation Considerations Reviewed prior records Results Laboratory Tests 02/20/23 1155: [Embedded Image Not Available] Laboratory Tests: 02/20 02/20 1155 1155 Chemistry Sodium (136 - 145 mmol/L) 142 Potassium (3.5 - 5.1 mmol/L) 4.3 Chloride (98 - 107 mmol/l) 103 Carbon Dioxide (20 - 31 mmol/L) 24 BUN (9 - 23 mg/dL) 11 Creatinine (0.55 - 1.02 mg/dL) 0.80 Glomerular Filtr Rate (>60 mL/min) >=60 max estimate Glucose (74 - 106 mg/dL) 78 Calcium (8.7 - 10.4 mg/dL) 9.3 Total Bilirubin (0.3 - 1.2 mg/dL) 0.4 Direct Bilirubin (<0.3 mg/dL) 0.1 AST (<34 U/L) 25 ALT (10 - 49 U/L) 21 Total Alk Phosphatase (46 - 116 U/L) 89.0 Troponin I High Sens (27.36 - 66.23 pg/mL) < 2.5 L Total Protein (5.7 - 8.2 g/dL) 7.5 Albumin (3.2 - 4.8 g/dL) 4.6 Lipase (12 - 53 U/L) 39 Hematology WBC (4.8 - 10.8 x10 3/uL) 11.2 H RBC (4.20 - 5.40 x10 6/uL) 4.96 Hgb (12.0 - 16.0 g/dL) 14.1 Hct (37.0 - 47.0 %) 42.2 MCV (81.0 - 99.0 fL) 85.1 MCH (27 - 31 pg) 28.4 MCHC (33 - 36.5 G/DL) 33.4 RDW (12.9 - 16.9 %) 12.0 L Plt Count (150 - 440 x10 3/uL) 278 MPV (8.9 - 12.4 fL) 11.3 Neut % (Auto) (42.2 - 75.2 %) 68.3 Lymph % (Auto) (20.5 - 51.1 %) 21.0 [place] % (Auto) (1.7 - 9.3 %) 7.0 Eos % (Auto) (0.0 - 7.0 %) 3.0 Baso % (Auto) (0 - 2.5 %) 0.3 Neut # (Auto) (1.80 - 7.70 x10 3/uL) 7.65 Lymph # (Auto) (1.00 - 4.80 x10 3/uL) 2.35 [place] # (Auto) (0.00 - 0.80 x10 3/uL) 0.78 Eos # (Auto) (0.00 - 0.45 x10 3/uL) 0.33 Baso # (Auto) (0.0 - 0.20 x10 3/uL) 0.03 02/20 1227 Chemistry Serum HCG, Qual (NEGATIVE) NEGATIVE Recent Impressions: RADIOLOGY - XR CHEST 2 V 02/20 1200 Report Impression - Status: SIGNED Entered: 02/20/2023 1213 IMPRESSION: No acute radiographic abnormalities. Impression By: [email or web address] - LEELA HERNANDEZ M.D. Point of Care Testing Pulse Oximetry Pulse Ox % 98 On: Room air Interpretation Interpreted by me, Pulse oximetry normal ECG #1 Interpretation ECG Documented in MUSE Yes Date 02/20/23 Time 1148 Interpreted by and reviewed by me, Independently interpreted, ED physician NL ECG Interpretation Normal rate, Normal sinus rhythm, No STEMI, Normal QRS, Normal ST waves, Normal T waves, Normal axis, Normal intervals, Adequate tracing Rate 88 Re-Evaluation MDM Free Text MDM Notes Free Text MDM Notes No fever sepsis or acute abdomen or peritonitis. Abdomen soft entirely. No abdominal tenderness. Case discussed with patient's bariatric surgeon who will see patient in a few days in clinic and agrees with plan. He states patient well for discharge home. Patient does indeed appear nontoxic and stable for discharge home. She is much improved after medication. She feels relieved to know results at this point are reassuring. History and exam not consistent with PE or ACS or surgical emergency. Re-Evaluation/Progress #1 Text/Dict Note Dw Dr Mathur will see patient later this week he agrees with plan. States likely referred pain from diaphragm. Patient updated on results. She feels better abdomen soft nontender. Vital signs stable. Time of Re-Eval 1317 Re-Eval Status Improved ED Course Medication(s) Ordered Medication(s) Ordered: Central Nervous System Agents Sig/John Start time Last Medication Dose Route Stop Time Status Admin Tramadol HCl 50 MG X1ED STA 02/20 1144 DC 02/20 PO 02/20 1145 1219 Hydrocodone Bitart/ 1 TAB X1ED STA 02/20 1141 CAN Acetaminophen PO 02/20 1142 Patient Discharge Departure Vital Signs/Condition Vital Signs First Documented: Result Date Time Pulse Ox 98 02/20 1125 B/P 118/80 02/20 1125 B/P Mean 92 02/20 1125 O2 Delivery Room air 02/20 1125 Temp 36.7 02/20 1125 Pulse 98 02/20 1125 Resp 18 02/20 1125 Last Documented: Result Date Time Pulse Ox 98 02/20 1336 B/P 122/76 02/20 1336 Pulse 82 02/20 1336 Resp 17 02/20 1336 B/P Mean 92 02/20 1125 O2 Delivery Room air 02/20 1125 Temp 36.7 02/20 1125 All vital signs available at the time of this entry have been reviewed. Condition Stable Clinical Impression Clinical Impression Primary Impression: LEFT SHOULDER AREA PAIN Secondary Impressions: HISTORY GASTRIC SLEEVE Disposition Decision Discharge )( Discharged to Home Yes )( Time 1318 )( Date 02/20/23 Discharge/Care Plan Counseled Regarding Diagnosis, Lab results, Imaging studies, Need for follow-up, When to return to ED Patient Instructions ED Shoulder Pain, Uncertain Cause, V-Introduction to Bariatric Surgery Referrals Provider Referral: Maggi Mathur MD Follow-Up: 2-3 Days Address: [address] [place] [address] Departure Forms FREE OR LOW COST CLINICS WORK/SCHOOL EXCUSE-CAREGIVER 2 at 1343 RPT #:[id number] END OF REPORT [facility] 2023-02-10 11:36:00 [facility] ([facility]) Med Order Sheet REPORT #: [id number] REPORT STATUS: Signed DATE: 02/10/23 TIME: 1136 PATIENT: AZALIA DOS SANTOS UNIT #: [id number] ROOM #: P.0928 BED: 1 : 84 AGE: 37 SEX: F ATTEND: Maggi Mathur MD ADM AUTHOR: George Aguirre APRN ATTENTION *EDITS and/or ADDENDA must be made in Patient Keeper for this note. * * Edits and ammendments created in [facility] are not visible * * in Patient Keeper or the legal medical record ([facility]). * Discharge Medication Reconciliation DISCHARGE MEDICATION LIST busPIRone Tab (Buspar Tab) Dose: 5 MG PO BID calcium citrate tablet Dose: Oral - TAKES 200MG TID L-Lysine tablet (lysine) Dose: 500 MG PO BID lamoTRIgine Tab (LaMICtal Tab) Dose: 100 MG PO DAILY Levothyroxine Tab (Synthroid Tab) Dose: 75 MCG PO DAILY METHYL FOLATE Dose: PO - TAKES 1000MCG DAILY Metoprolol Succinate XL Tab (Toprol XL Tab) Dose: 25 MG PO DAILY Omeprazole Dose: Oral - TAKES 40MG DAILY ULTRA SOLO WITH IRON Dose: PO - TAKES DAILY VITAMIN D3 WITH K2 Dose: PO - TAKES DAILY VITRONC Dose: PO - TAKES 65MG DAILY STOPPED HOSPITAL MEDICATIONS Dc'd: Dexamethasone Inj (Decadron Inj) 4MG IV Q6HR X 8 dosesDc'd: diphenhydrAMINE Inj (Benadryl Inj) 25MG IV BEDTIME PRN insomniaDc'd: diphenhydrAMINE Inj (Benadryl Inj) 25MG IV Q4H PRN itchingDc'd: Enalaprilat Inj (Vasotec Inj) 1.25MG IV Q6H PRN sbp above 150Dc'd: Enoxaparin 40 mg/0.4 ml Inj (Lovenox 40 mg/0.4 ml Inj) 40MG SubQ Q12HDc'd: KCl 20mEq + D5W-1/2NS 1000mL (D5W-1/2NS + KCl 20mEq 1000mL) 20MEQ 135 MLS/HR IV Dc'd: Ketorolac Inj (Toradol Inj) 30MG IV Q6H PRN pain scale 4-6 (use 2nd)Dc'd: Ondansetron Inj (Zofran Inj) 4MG IV Q4H PRN nausea and vomitingDc'd: oxyCODONE IR Tab (Roxicodone Tab) 5MG PO Q4H PRN pain scale 4-6 (use 1st)Dc'd: Prochlorperazine Inj (Compazine Inj) 5MG IV Q4H PRN nausea and vomitingDc'd: Simethicone Chew Tab (Mylanta Gas Chew Tab) 80MG PO Q4H PRN gasDc'd: valACYclovir Tab (Valtrex Tab) 1000MG PO BID at 1136 ATTENTION *EDITS and/or ADDENDA must be made in Patient Keeper for this note. * * Edits and ammendments created in [facility] are not visible * * in Patient Keeper or the legal medical record ([facility]). * RPT #: [id number] END OF REPORT [facility] 2023-02-10 11:04:00 [facility] ([facility]) Internal Med. D/C Summary REPORT #: [id number] REPORT STATUS: Signed DATE: 02/10/23 TIME: 1104 PATIENT: AZALIA DOS SANTOS UNIT #: [id number] ROOM #: [facility] BED: 1 : 84 AGE: 37 SEX: F ATTEND: Maggi Mathur MD ADM AUTHOR: George Aguirre APRN ATTENTION *EDITS and/or ADDENDA must be made in Patient Keeper for this note. * * Edits and ammendments created in [facility] are not visible * * in Patient Keeper or the legal medical record ([facility]). * -- CO-SIGNATURE -- COMMENTS: Patient seen and examined Plan of care discussed with Dr. Mathur Patient's questions answered to her satisfaction Agree with the findings as detailed by George Aguirre APRN Discharge plans are enumerated below Total time spent coordinating discharge care > 55 mins Signed in PatientKeeper by QUE ORO MD on 02/10/23 at 21:59 -- PROBLEMS/PROCEDURES -- ADMISSION DATE: 02/08/23 ADMITTING DIAGNOSES: - Depression with anxiety - Hepatomegaly - Hiatal hernia with gastroesophageal reflux disease and esophagitis - Hypertension - Hypothyroidism - Iron deficiency anemia - Obesity, Class II, BMI 35-39.9 - MAGDIEL (obstructive sleep apnea) DISCHARGE DATE: 02/10/23 DISCHARGE DIAGNOSES: - Depression with anxiety - Hepatomegaly - Hiatal hernia with gastroesophageal reflux disease and esophagitis - Hypertension - Hypothyroidism - Iron deficiency anemia - Obesity, Class II, BMI 35-39.9 - MAGDIEL (obstructive sleep apnea) -- HOSPITAL COURSE -- HOSPITAL COURSE: Patient is a 37 year old woman with PMH of hypothyroidism, depression with anxiety, MAGDIEL, HTN, abnormal uterine bleeding, iron deficiency anemia, hiatal hernia with reflux esophagitis, and morbid obesity who underwent a robotic-assisted laparoscopic sleeve gastrectomy, hiatal hernia repair, and liver wedge biopsy by Dr. Mathur. Patient struggled with postoperative incisional pain and nausea. Symptoms improved with medical management. She otherwise had an uncomplicated postoperative course. Doing well POD#2. Patient is ambulating independently, and pain is now controlled with oral analgesics, and she is tolerating a clear liquid diet without nausea. Patient reports that analgesic medications have been called to her pharmacy. Discussed with Dr. Mathur. Ok for discharge. -- DISCHARGE MEDICATIONS -- ALLERGIES: codeine (Unknown - Allergy) CODIENE (Unknown - Allergy) [EXTERNAL] codeine CODEINE (UNKNOWN - External allergies are for display only, consider adding to medical record for drug interaction check) DISCHARGE MEDICATIONS: Please refer to Discharge Medication list for a complete list of discharge medications busPIRone Tab (Buspar Tab) 5 MG PO BID calcium citrate tablet Oral (TAKES 200MG TID) L-Lysine tablet (lysine) 500 MG PO BID lamoTRIgine Tab (LaMICtal Tab) 100 MG PO DAILY Levothyroxine Tab (Synthroid Tab) 75 MCG PO DAILY METHYL FOLATE PO METHYL FOLATE (TAKES 1000MCG DAILY) Metoprolol Succinate XL Tab (Toprol XL Tab) 25 MG PO DAILY Omeprazole Oral (TAKES 40MG DAILY) ULTRA SOLO WITH IRON PO ULTRA SOLO WITH IRON (TAKES DAILY) VITAMIN D3 WITH K2 PO VITAMIN D3 WITH K2 (TAKES DAILY) VITRONC PO VITRONC (TAKES 65MG DAILY) -- DISCHARGE INSTRUCTIONS -- ADMISSION ORDERS: Discharge Follow Up Details: Consulting provider 1:: MAGGI MATHUR MD Consulting provider 1:: . Consult phone:: [phone] Consult follow up timeframe:: In 1-2 weeks Consult special instructions:: Patient to call for follow up appointment. PK DISCHARGE ORDERS: DC Order w/Instructions (No Carlos Eduardo) Details: Yes Discharge to:: Home/Self Care Diet:: Bariatric clear liquid diet Activity:: Do not Submerge Incision, No Lifting, No Lifting gt;20lbs, Shower Only Additional Discharge Routines:: PCP Follow-Up, Automobile Mechanic Helper Follow-Up PCP follow up timeframe:: In 1-2 weeks PCP special instructions:: Patient to call for follow up appointment. Notify PCP of Signs/Symptoms:: Increased tenderness/pain, Moderate/large bleeding, Pus-like discharge, Red line from wound, Temp. 101 or greater Wound/dressing care:: Clean wound daily, Keep wound clean and dry Details: DC Order - No eCQM ADDTIONAL DISCHARGE INSTRUCTIONS: Emergency Instructions: The patient was instructed to present to the nearest Emergency Department or call 911 should their symptoms return or worsen.; -- OBJECTIVE -- VITALS (02/08 11:49 - 02/09 11:49): Temperature C: 36.6 (36.6 - 36.7) Temperature source: Oral Pulse Rate 99 (82 - 99) Respiratory rate: 18 (16 - 18) Blood pressure: 126/80 (123/73 - 142/87) I/Os (02/08 07:00 - 02/09 07:00): Net 330.00 Intake 2,700.00 Output 2,370 -EXAM- GENERAL: alert and cooperative, appears comfortable. In no distress. Obese HEAD: Normocephalic, atraumatic. EYES: PERRL, EOM intact, conjunctiva and sclera clear, without nystagmus, lids normal. EARS: normal canals, grossly normal hearing. NOSE: No deformity, no discharge, no inflammation, no lesions. MOUTH: Oropharynx without deformities or lesions, normal mucosa. NECK: No masses, no thyromegaly, no abnormal cervical nodes, trachea midline. CHEST: Grossly normal appearance. LUNGS: Clear bilaterally with normal respiratory effort. HEART: Regular rate and rhythm, normal S1, S2, no murmurs, no rubs, no gallops, no clicks. ABDOMEN: Soft, minimally tender, incisions clean and dry. MUSCULOSKELETAL: No deformity, no scoliosis noted of thoracic or lumbar spine, joint ROM grossly normal, normal gait and station. EXTREMITIES: No clubbing, no cyanosis, no edema. NEUROLOGICAL: No focal deficits, cranial nerves II-XII grossly intact, normal sensation, normal coordination, normal muscle strength, normal tone. PULSES: Pulses normal in all extremities. SKIN: Intact without significant lesions, or rashes. LYMPH NODES: No significant node adenopathy. PSYCHIATRIC: Alert and oriented to time, person, place. Normal mood and affect, intact judgment and insight. -- DATA -- LABS PHOS (02/09/23 04:06) PHOSPHOROUS 1.0 L MAG (02/09/23 04:06) MAGNESIUM 1.7 CBC W/AUTO DIFF (02/09/23 04:06) WHITE BLOOD CELL 14.2H H RED BLOOD CELL 4.52 HEMOGLOBIN 13.1 HEMATOCRIT 38.6 MEAN CELL VOLUME 85.4 MEAN CELL HGB 29.0 MEAN CELL HGB CONCENTRATION 33.9 RED CELL DISTRIBUTION WIDTH 11.9 L PLATELET COUNT 246 MEAN PLATELET VOLUME 10.9 NEUTROPHIL % 92.0 H LYMPHOCYTE % 5.5 L MONOCYTE % 1.8 EOSINOPHIL % 0.0 BASOPHIL % 0.1 NEUTROPHIL # 13.03 H LYMPHOCYTE # 0.78 L MONOCYTE # 0.26 EOSINOPHIL # 0.00 BASOPHIL # 0.01 BASIC METABOLIC PANEL (02/09/23 04:06) SODIUM 137 POTASSIUM 4.0 CHLORIDE 107 CARBON DIOXIDE 22 GLUCOSE 150H H BLOOD UREA NITROGEN < 5L L GLOMERULAR FILTRATION RATE >=60 max estimate CREATININE 0.60 CALCIUM 8.2 D L Signed in PatientKeeper by GEORGE AGUIRRE APRN on 02/10/23 at 11:37 Cosigned by QUE ORO MD on 02/10/23 at 21:59 at 2159 at 2159 ATTENTION *EDITS and/or ADDENDA must be made in Patient Keeper for this note. * * Edits and ammendments created in [facility] are not visible * * in Patient Keeper or the legal medical record ([facility]). * RPT #: [id number] END OF REPORT [facility] 2023-02-09 14:45:00 [facility] ([facility]) Internal Med. Progress Note REPORT #: [id number] REPORT STATUS: Signed DATE: 02/09/23 TIME: 1445 PATIENT: AZALIA DOS SANTOS UNIT #: [id number] ROOM #: [facility] BED: 1 : 84 AGE: 37 SEX: F ATTEND: Maggi Mathur MD ADM AUTHOR: George Aguirre APRN ATTENTION *EDITS and/or ADDENDA must be made in Patient Keeper for this note. * * Edits and ammendments created in HTP are not visible * * in Patient Keeper or the legal medical record (HPF). * -- CO-SIGNATURE -- COMMENTS: Patient seen and examined at bedside Plan of care discussed with patient, all questions answered to her satisfaction Agree with the findings as detailed by George Aguirre HOG RINGER Plans for the multiple complex medical problems are enumerated below Total time spent direct care, counseling and coordinating care > 55 mins Signed in PatientKeeper by QUE ORO MD on 02/09/23 at 23:56 -- ASSESSMENT AND PLAN -- PROBLEMS: 1: Postoperative pain A/P: Toradol added Oxycodone prn Dilaudid prn breakthough 2: Nausea A/P: Decadron added Now tolerating clear liquids better. Compazine, Zofran prn 3: Obesity, Class II, BMI 35-39.9 A/P: s/p RAL sleeve gastrectomy IVF pain management continue post operative care per Dr. Mathur 4: Hiatal hernia with gastroesophageal reflux disease and esophagitis A/P: s/p RAL hiatal hernia repair 5: Hepatomegaly A/P: s/p RAL liver wedge biopsy to r/o SIMS 6: Hypertension A/P: continue Metoprolol XL 25 mg daily enaliprilat prn 7: MAGDIEL (obstructive sleep apnea) A/P: non-compliant with CPAP usage CPAP ordered HS 8: Hypothyroidism A/P: continue synthroid 9: Iron deficiency anemia A/P: trend Hgb 10: Depression with anxiety A/P: continue Buspar and lamictal 11: deep breathing exercises to prevent atelectasis A/P: IS encourage ambulation 12: Hypophosphatemia A/P: Replete sodium phosphate 20 mmol IV x 1 13: Hypomagnesemia A/P: Replete Mag Sulfate 2 gm IV x 1 -- SUBJECTIVE -- PATIENT NARRATIVE: Nausea and dry heaving overnight. Toradol/Decadron added. Some mild itching after Toradol Now tolerating clear liquids better. Still struggling with incisional pain -- OBJECTIVE -- VITALS (02/08 12:00 - 02/09 12:00): Temperature C: 36.8 (36.6 - 36.8) Temperature source: Oral Pulse Rate 91 (82 - 99) Respiratory rate: 18 (16 - 18) Blood pressure: 113/70 (113/70 - 142/87) I/Os (02/08 07:00 - 02/09 07:00): Net 330.00 Intake 2,700.00 Output 2,370 -EXAM- GENERAL: alert and cooperative, appears comfortable. In no distress. Obese HEAD: Normocephalic, atraumatic. EYES: PERRL, EOM intact, conjunctiva and sclera clear, without nystagmus, lids normal. EARS: normal canals, grossly normal hearing. NOSE: No deformity, no discharge, no inflammation, no lesions. MOUTH: Oropharynx without deformities or lesions, normal mucosa. NECK: No masses, no thyromegaly, no abnormal cervical nodes, trachea midline. CHEST: Grossly normal appearance. LUNGS: Clear bilaterally with normal respiratory effort. HEART: Regular rate and rhythm, normal S1, S2, no murmurs, no rubs, no gallops, no clicks. ABDOMEN: Soft, minimally tender, incisions clean and dry. MUSCULOSKELETAL: No deformity, no scoliosis noted of thoracic or lumbar spine, joint ROM grossly normal, normal gait and station. EXTREMITIES: No clubbing, no cyanosis, no edema. NEUROLOGICAL: No focal deficits, cranial nerves II-XII grossly intact, normal sensation, normal coordination, normal muscle strength, normal tone. PULSES: Pulses normal in all extremities. SKIN: Intact without significant lesions, or rashes. LYMPH NODES: No significant node adenopathy. PSYCHIATRIC: Alert and oriented to time, person, place. Normal mood and affect, intact judgment and insight. -- DATA -- MEDICATIONS busPIRone HCL 5 MG PO BID lamoTRIgine 100 MG PO DAILY valACYclovir HCL 1000 MG PO BID SODIUM PHOSPHATE with/in SODIUM CHLORIDE 0.9% 20 MM IV ONCE SIMETHICONE 80 MG PO Q4H PRN HYDROmorphone HCL 0.5 MG IV Q2H PRN PROCHLORPERAZINE EDISYLATE 5 MG IV Q4H PRN D5-0.45NACL/POT CHLORIDE 20 MEQ IV .Q7H25M KETOROLAC TROMETHAMINE 30 MG IV Q6H PRN DEXAMETHASONE SOD PHOSPHATE 4 MG IV Q6HR diphenhydrAMINE HCL 25 MG IV BEDTIME PRN ENALAPRILAT DIHYDRATE 1.25 MG IV Q6H PRN ONDANSETRON HCL/PF 4 MG IV Q4H PRN diphenhydrAMINE HCL 25 MG IV Q4H PRN ENOXAPARIN SODIUM 40 MG SUBQ Q12H oxyCODONE HCL 5 MG PO Q4H PRN LEVOTHYROXINE SODIUM 75 MCG PO DAILY@0600 METOPROLOL SUCCINATE 25 MG PO DAILY LABS PHOS (02/09/23 04:06) PHOSPHOROUS 1.0 L MAG (02/09/23 04:06) MAGNESIUM 1.7 CBC W/AUTO DIFF (02/09/23 04:06) WHITE BLOOD CELL 14.2H H RED BLOOD CELL 4.52 HEMOGLOBIN 13.1 HEMATOCRIT 38.6 MEAN CELL VOLUME 85.4 MEAN CELL HGB 29.0 MEAN CELL HGB CONCENTRATION 33.9 RED CELL DISTRIBUTION WIDTH 11.9 L PLATELET COUNT 246 MEAN PLATELET VOLUME 10.9 NEUTROPHIL % 92.0 H LYMPHOCYTE % 5.5 L MONOCYTE % 1.8 EOSINOPHIL % 0.0 BASOPHIL % 0.1 NEUTROPHIL # 13.03 H LYMPHOCYTE # 0.78 L MONOCYTE # 0.26 EOSINOPHIL # 0.00 BASOPHIL # 0.01 BASIC METABOLIC PANEL (02/09/23 04:06) SODIUM 137 POTASSIUM 4.0 CHLORIDE 107 CARBON DIOXIDE 22 GLUCOSE 150H H BLOOD UREA NITROGEN < 5L L GLOMERULAR FILTRATION RATE >=60 max estimate CREATININE 0.60 CALCIUM 8.2 D L Signed in PatientKeeper by GEORGE AGUIRRE APRN on 02/09/23 at 14:46 Cosigned by QUE ORO MD on 02/09/23 at 23:56 at 2356 at 2356 ATTENTION *EDITS and/or ADDENDA must be made in Patient Keeper for this note. * * Edits and ammendments created in HTP are not visible * * in Patient Keeper or the legal medical record (HPF). * RPT #: [id number] END OF REPORT [facility] 2023-02-09 09:37:00 [facility] ([facility]) Surgical Post Op Progress Note REPORT #: [id number] REPORT STATUS: Signed DATE: 02/09/23 TIME: 936 PATIENT: AZALIA DOS SANTOS UNIT #: [id number] ROOM #: [id number] BED: 1 : 84 AGE: 37 SEX: F ATTEND: Maggi Mathur MD ADM AUTHOR: Maggi Mathur MD ATTENTION *EDITS and/or ADDENDA must be made in Patient Keeper for this note. * * Edits and ammendments created in [facility] are not visible * * in Patient Keeper or the legal medical record (HPF). * -- ASSESSMENT AND PLAN -- GENERAL ASSESSMENT: POD#1 doing well except some PONV - decadron/toradol for N/V and pain - replete phos - increase PO - can d/c when PO improves with no n/v -- SUBJECTIVE -- HOSPITAL DAY: 2 HPI: Pt having some nausea over night. Seems better this am. Mild pain. Ambulated. Tolerating a little PO liquids -- OBJECTIVE -- VITALS (02/08 09:37 - 02/09 09:37): Temperature C: 36.6 (36.4 - 36.7) Temperature source: Oral Pulse Rate 99 (75 - 99) Respiratory rate: 18 (16 - 18) Blood pressure: 126/80 (123/71 - 142/87) I/Os (02/08 07:00 - 02/09 07:00): Net 330.00 Intake 2,700.00 Output 2,370 -- GENERAL: Well developed, well nourished, in no apparent distress. -EXAM- ABDOMEN: soft, nd, min ttp, incis-c/d/i -- DATA -- MEDICATIONS busPIRone HCL 5 MG PO BID lamoTRIgine 100 MG PO DAILY valACYclovir HCL 1000 MG PO BID SODIUM PHOSPHATE with/in SODIUM CHLORIDE 0.9% 20 MM IV ONCE SIMETHICONE 80 MG PO Q4H PRN HYDROmorphone HCL 0.5 MG IV Q2H PRN PROCHLORPERAZINE EDISYLATE 5 MG IV Q4H PRN D5-0.45NACL/POT CHLORIDE 20 MEQ IV .Q7H25M KETOROLAC TROMETHAMINE 30 MG IV Q6H PRN DEXAMETHASONE SOD PHOSPHATE 4 MG IV Q6HR diphenhydrAMINE HCL 25 MG IV BEDTIME PRN ENALAPRILAT DIHYDRATE 1.25 MG IV Q6H PRN ONDANSETRON HCL/PF 4 MG IV Q4H PRN diphenhydrAMINE HCL 25 MG IV Q4H PRN ENOXAPARIN SODIUM 40 MG SUBQ Q12H oxyCODONE HCL 5 MG PO Q4H PRN LEVOTHYROXINE SODIUM 75 MCG PO DAILY@0600 METOPROLOL SUCCINATE 25 MG PO DAILY LABS PHOS (02/09/23 04:06) PHOSPHOROUS 1.0 L MAG (02/09/23 04:06) MAGNESIUM 1.7 CBC W/AUTO DIFF (02/09/23 04:06) WHITE BLOOD CELL 14.2H H RED BLOOD CELL 4.52 HEMOGLOBIN 13.1 HEMATOCRIT 38.6 MEAN CELL VOLUME 85.4 MEAN CELL HGB 29.0 MEAN CELL HGB CONCENTRATION 33.9 RED CELL DISTRIBUTION WIDTH 11.9 L PLATELET COUNT 246 MEAN PLATELET VOLUME 10.9 NEUTROPHIL % 92.0 H LYMPHOCYTE % 5.5 L MONOCYTE % 1.8 EOSINOPHIL % 0.0 BASOPHIL % 0.1 NEUTROPHIL # 13.03 H LYMPHOCYTE # 0.78 L MONOCYTE # 0.26 EOSINOPHIL # 0.00 BASOPHIL # 0.01 BASIC METABOLIC PANEL (02/09/23 04:06) SODIUM 137 POTASSIUM 4.0 CHLORIDE 107 CARBON DIOXIDE 22 GLUCOSE 150H H BLOOD UREA NITROGEN < 5L L GLOMERULAR FILTRATION RATE >=60 max estimate CREATININE 0.60 CALCIUM 8.2 D L Signed in PatientKeeper by Maggi Mathur MD on 02/09/23 at 09:38 at 0938 ATTENTION *EDITS and/or ADDENDA must be made in Patient Keeper for this note. * * Edits and ammendments created in [facility] are not visible * * in Patient Keeper or the legal medical record ([facility]). * [facility] #: [id number] END OF REPORT [facility] 2023-02-08 16:20:00 [facility] ([facility]) Med Order Sheet REPORT #: [id number] REPORT STATUS: Signed DATE: 02/08/23 TIME: 1619 PATIENT: AZALIA DOS SANTOS UNIT #: [id number] ROOM #: P.0928 BED: 1 : 84 AGE: 37 SEX: F ATTEND: Maggi Mathur MD [facility] AUTHOR: Rosi Lagos CNP ATTENTION *EDITS and/or ADDENDA must be made in Patient Keeper for this note. * * Edits and ammendments created in [facility] are not visible * * in Patient Keeper or the legal medical record ([facility]). * Admission Medication Reconciliation -- CONTINUED / CHANGED HOME MEDICATIONS -- Home: busPIRone Tab (Buspar Tab) 5 MG PO BID Hosp: busPIRone Tab (Buspar Tab) 5 MG PO BID Home: lamoTRIgine Tab (LaMICtal Tab) 100 MG PO DAILY Hosp: lamoTRIgine Tab (LaMICtal Tab) 100 MG PO DAILY Home: Levothyroxine Tab (Synthroid Tab) 75 MCG PO DAILY Hosp: Levothyroxine Tab (Synthroid Tab) 75 MCG PO DAILY Home: Metoprolol Succinate XL Tab (Toprol XL Tab) 25 MG PO DAILY Hosp: Metoprolol Succinate XL Tab (Toprol XL Tab) 25 MG PO DAILY -- STOPPED HOME MEDICATIONS -- Home: calcium citrate tablet Oral (TAKES 200MG TID) Home: L-Lysine tablet (lysine) 500 MG PO BID Home: METHYL FOLATE (TAKES 1000MCG DAILY) Home: Omeprazole Oral (TAKES 40MG DAILY) Home: ULTRA SOLO WITH IRON (TAKES DAILY) Home: VITAMIN D3 WITH K2 (TAKES DAILY) Home: VITRONC (TAKES 65MG DAILY) at 1620 ATTENTION *EDITS and/or ADDENDA must be made in Patient Keeper for this note. * * Edits and ammendments created in HTP are not visible * * in Patient Keeper or the legal medical record (HPF). * RPT #: [id number] END OF REPORT [facility] 2023-02-08 16:07:00 [facility] Consultation REPORT #: [id number] REPORT STATUS: Signed DATE: 02/08/23 TIME: 1606 PATIENT: AZALIA DOS SANTOS UNIT #: [id number] ROOM #: P0928 BED: 1 : 84 AGE: 37 SEX: F ATTEND: Maggi Mathur MD ADM AUTHOR: Rosi Lagos REGISTERED PUBLIC HEALTH NURSE ATTENTION *EDITS and/or ADDENDA must be made in Patient Keeper for this note. * * Edits and ammendments created in HTP are not visible * * in Patient Keeper or the legal medical record (HPF). * -- CO-SIGNATURE -- COMMENTS: Thank you for letting us participate in the care of your patient post operatively. Patient seen and examined, quite nauseated Plan of care discussed with patient, all questions answered to her satisfaction Agree with the findings as detailed by Demond GROCERY CARRIER Plans for the acute medical problems are enumerated below Total time spent coordinating care > 75 mins Signed in PatientKeeper by QUE ORO MD on 02/08/23 at 23:07 -- ASSESSMENT AND PLAN -- PROBLEMS: 1: Obesity, Class II, BMI 35-39.9 A/P: s/p RAL sleeve gastrectomy IVF pain management continue post operative care per Dr. Mathur 2: Hiatal hernia with gastroesophageal reflux disease and esophagitis A/P: s/p RAL hiatal hernia repair IVF pain management continue post operative care per Dr. Mathur 3: Hepatomegaly A/P: s/p RAL liver wedge biopsy to r/o SIMS IVF pain management continue post operative care per Dr. Mathur 4: Hypertension A/P: continue Metoprolol XL 25 mg daily enaliprilat prn 5: MAGDIEL (obstructive sleep apnea) A/P: non-compliant with CPAP usage CPAP ordered HS 6: Hypothyroidism A/P: continue synthroid 7: Iron deficiency anemia A/P: trend Hgb 8: Depression with anxiety A/P: continue Buspar and lamictal 9: deep breathing exercises to prevent atelectasis A/P: IS encourage ambulation CONSULTANTS: DVT- Prophylaxis- Lovenox -- HISTORY -- CONSULT REQUESTED BY: Maggi Mathur MD REASON FOR CONSULT: post operative medical management HPI: Patient is a 37 year old woman with PMH of hypothyroidism, depression with anxiety, MAGDIEL, HTN, abnormal uterine bleeding, iron deficiency anemia, hiatal hernia with reflux esophagitis, and morbid obesity who reported to [facility] for scheduled procedure. Today, she underwent a robotic-assisted laparoscopic sleeve gastrectomy, hiatal hernia repair, and liver wedge biopsy by Dr. Mathur. Patient tolerated the procedure well. We were asked to see the patient post operatively for medical management, hence my involvement. History was obtained from patient and chart review. PAST MEDICAL HISTORY: as stated above ectopic PAST SURGICAL HISTORY: left fallopian tube removal (ectopic) FAMILY HISTORY: non contributory -SOCIAL HISTORY- MARITAL STATUS: LIVING SITUATION: with spouse ADDITIONAL SOCIAL HISTORY: denies etoh, tobacco, and drug usage -- ALLERGIES/HOME MEDS -- ALLERGIES: CODIENE (Unknown - Allergy) [EXTERNAL] codeine CODEINE (UNKNOWN - External allergies are for display only, consider adding to medical record for drug interaction check) HOME MEDICATIONS: busPIRone Tab (Buspar Tab) 5 MG PO BID calcium citrate tablet Oral L-Lysine tablet (lysine) 500 MG PO BID lamoTRIgine Tab (LaMICtal Tab) 100 MG PO DAILY Levothyroxine Tab (Synthroid Tab) 75 MCG PO DAILY METHYL FOLATE Metoprolol Succinate XL Tab (Toprol XL Tab) 25 MG PO DAILY Omeprazole Oral ULTRA SOLO WITH IRON VITAMIN D3 WITH K2 VITRONC -- SUBJECTIVE -- -REVIEW OF SYSTEMS- GENERAL: negative for fever EYES: Negative for blurry vision. No diplopia. EARS/NOSE/THROAT: Negative for sore throat. No otalgia. No rhinorrhea. BREAST: Negative for change in shape, swelling, masses, nipple discharge, pain, skin changes. RESPIRATORY: Negative for dyspnea or wheeze. No cough. CARDIOVASCULAR: Negative for chest pain or palpitations. No extremity swelling. GASTROINTESTINAL: +mere for abd pain+ nausea GENITOURINARY: Negative for dysuria, frequency, or urgency. No gross hematuria. MUSCULOSKELETAL: Negative for joint stiffness, pain, or arthralgias. SKIN: Negative for rashes. No pruritus. NEUROLOGICAL: Negative for headache. No vertigo. Denies paresthesias. PSYCHIATRIC: Negative for specific complaints. ENDOCRINE: Negative for cold intolerance, heat intolerance, polyphagia, polydipsia, polyuria, weight change, fatigue. HEMATALOGIC / LYMPHORETICULAR: Negative for excessive bleeding, unusual masses. ALLERGIC / IMMUNOLOGIC: Negative for heat/cold intolerance, polydipsia, or polyuria. -- OBJECTIVE -- VITALS (02/07 16:07 - 02/08 16:07): Temperature C: 36.7 (36.4 - 36.9) Pulse Rate 90 (75 - 98) Respiratory rate: 16 (16 - 17) Blood pressure: 134/85 (123/71 - 142/87) -EXAM- GENERAL: Well developed, well nourished, in no apparent distress. HEAD: Normocephalic, atraumatic. EYES: PERRL, EOM intact, conjunctiva and sclera clear, without nystagmus, lids normal. MOUTH: Oropharynx without deformities or lesions, normal mucosa.. NECK: No masses, no thyromegaly, no abnormal cervical nodes, trachea midline. CHEST: Grossly normal appearance. LUNGS: Clear bilaterally with normal respiratory effort. HEART: Regular rate and rhythm, normal S1, S2, no murmurs, no rubs, no gallops, no clicks. ABDOMEN: appropriately tender, 4 lap sites c/d/i, on-q pump in place MUSCULOSKELETAL: No deformity, no scoliosis noted of thoracic or lumbar spine, joint ROM grossly normal, normal gait and station. EXTREMITIES: No clubbing, no cyanosis, no edema. NEUROLOGICAL: No focal deficits, cranial nerves II-XII grossly intact, normal sensation, normal reflexes, normal coordination, normal muscle strength, normal tone. PULSES: Pulses normal in all extremities. SKIN: Intact without significant lesions, or rashes. LYMPH NODES: No significant cervical node adenopathy. No significant axillary node adenopathy. No significant inguinal node adenopathy. PSYCHIATRIC: Alert and oriented to time, person, place. Normal mood and affect, intact judgment and insight. -- DATA -- MEDICATIONS nalOXone HCL 0.04 MG IV PACU Q2MIN PRN ENOXAPARIN SODIUM 40 MG SUBQ PREOP ONCE oxyCODONE HCL 5 MG PO PACU Q4H PRN PREGABALIN 75 MG PO PREOP ATROPINE SULFATE 0.5 MG IV PACU Q5MIN PRN ACETAMINOPHEN 1000 MG IV PREOP ONCALL EPINEPHrine 2.25% 0.5 ML NEB PACU ASDIR PRN SCOPOLAMINE 1 PATCH TOPICAL PREOP ONCALL diphenhydrAMINE HCL 12.5 MG IV PACU ONCE PRN SODIUM CHLORIDE 0.9% 1000 ML IV PACU IV FLUID PROCHLORPERAZINE EDISYLATE 5 MG IV PACU ONCE PRN cefTRIAXone SODIUM with/in SODIUM CHLORIDE 0.9% 2 GM IV PREOP ONCE flumazeniL 0.2 MG IV PACU ASDIR PRN CELECOXIB 200 MG PO PREOP CELECOXIB 200 MG PO PACU PREGABALIN 75 MG PO PACU ACETAMINOPHEN 1000 MG IV PACU morphine SULFATE 2 MG IV PACU Q5MIN PRN hydrALAZINE HCL 10 MG IV PACU Q10MIN PRN BUPIVACAINE HCL 0.25% with/in CONTAINER,EMPTY 100 ML PNP ONCALL SIMETHICONE 80 MG PO Q4H PRN ACETAMINOPHEN 1000 MG IV Q6HR THIAMINE HCL 100 MG IV ONCE HYDROmorphone HCL 0.5 MG IV Q2H PRN PROCHLORPERAZINE EDISYLATE 5 MG IV Q4H PRN D5-0.45NACL/POT CHLORIDE 20 MEQ IV .Q7H25M DEXAMETHASONE SOD PHOSPHATE 4 MG IV Q6HR diphenhydrAMINE HCL 25 MG IV BEDTIME PRN ENALAPRILAT DIHYDRATE 1.25 MG IV Q6H PRN ONDANSETRON HCL/PF 4 MG IV Q4H PRN diphenhydrAMINE HCL 25 MG IV Q4H PRN ENOXAPARIN SODIUM 40 MG SUBQ Q12H oxyCODONE HCL 5 MG PO Q4H PRN MEPERIDINE HCL 12.5 MG IV PACU ONCE PRN LABETALOL HCL 10 MG IV PACU Q5MIN PRN HYDROmorphone HCL 0.5 MG IV PACU Q10MIN PRN LABS UR HCG QL (02/08/23 05:56) UR HCG QUAL NEGATIVE Signed in PatientKeeper by ROSI LAGOS CNP on 02/08/23 at 16:24 Cosigned by QUE ORO MD on 02/08/23 at 23:07 at 2307 at 2307 ATTENTION *EDITS and/or ADDENDA must be made in Patient Keeper for this note. * * Edits and ammendments created in HTP are not visible * * in Patient Keeper or the legal medical record (HPF). * [facility] #: [id number] END OF REPORT [facility] 2023-02-08 08:56:00 [id number] [facility] [address] [place] [address] PATIENT NAME: AZALIA DOS SANTOS ADMIT DATE: 02/08/23 ACCOUNT NO: [id number] ROOM NO: P.0928 AGE: 37 REPORT TYPE: CONSULTATION SEX: F ADMITTING PHYSICIAN:Maggi Mathur MD ATTENDING PHYSICIAN:Maggi Mathur MD CONSULTATION DATE: PREOPERATIVE DIAGNOSIS: Pain, status post sleeve gastrectomy. POSTOPERATIVE DIAGNOSIS: Pain, status post sleeve gastrectomy. PROCEDURE PERFORMED: Abdominal wall catheter placement x2. ANESTHESIA: General endotracheal anesthesia. ESTIMATED BLOOD LOSS: Minimal. COMPLICATIONS: None. INDICATIONS: This is a patient undergoing the above stated surgery. Postoperatively, decreased narcotic use is desired to prevent causing respiratory distress in this patient. Therefore, the abdominal wall catheters will be placed to help decrease the postoperative pain, and subsequently narcotic use. OPERATIVE COURSE: Through the left subcostal incision, I tunneled two 8-inch sheaths and tunnelers in the prefascial space, one superior to the umbilicus and one inferior to the umbilicus. The umbilicus is the site of maximal pain because this is where the largest incisions are, the fascia is closed and the specimen is extracted. Therefore, this is the site of maximal pain. The tunnelers were removed and catheters were advanced through the sheaths and the sheaths were peeled away. The catheters will perform a partial abdominal wall block around this area. This will decrease the postoperative pain and subsequent narcotic use. The catheters were attached to a pump filled with 0.5% Marcaine. This was held in place with Steri-Strips and Tegaderm. There were no complications. Dictated By: Maggi Mathur MD Date Dictated: 02/08/2023 08:56:33 Date Transcribed: 02/08/2023 09:37:47 WALTYennifer/JENNYFER Receipt ID: [id number] Authenticated by Maggi Mathur MD On 02/28/2023 04:53:27 PM PATIENT NAME: AZALIA DOS SANTOS at 0453 PATIENT NAME: AZALIA DOS SANTOS [facility] 2023-02-08 08:56:00 [id number] [facility] [address] [place] [address] PATIENT NAME: AZALIA DOS SANTOS ADMIT DATE: 02/08/23 ACCOUNT NO: [id number] ROOM NO: P.0928 AGE: 37 REPORT TYPE: OPERATIVE REPORT SEX: F ADMITTING PHYSICIAN:Maggi Mathur MD ATTENDING PHYSICIAN:Maggi Mathur MD OPERATION DATE: SURGEON: Maggi Mathur MD FUEL ASSEMBLER: NORMA ROGERS PREOPERATIVE DIAGNOSES: 1. Hiatal hernia. 2. Reflux esophagitis. 3. Hypothyroidism. 4. Sleep apnea. 5. Hypertension. 6. Abnormal uterine bleeding. 7. Iron deficiency anemia. 8. Morbid obesity (BMI 35.9). POSTOPERATIVE DIAGNOSES: 1. Hiatal hernia. 2. Reflux esophagitis. 3. Hypothyroidism. 4. Sleep apnea. 5. Hypertension. 6. Abnormal uterine bleeding. 7. Iron deficiency anemia. 8. Morbid obesity (BMI 35.9). 9. Hepatomegaly. PROCEDURES PERFORMED: 1. Robotic-assisted laparoscopic sleeve gastrectomy. 2. Robotic-assisted laparoscopic liver wedge biopsy. 3. Robotic-assisted laparoscopic hiatal hernia repair. 4. EGD. 5. Bilateral transverse abdominis plane blocks. ANESTHESIA: General endotracheal anesthesia. ESTIMATED BLOOD LOSS: Minimal. COMPLICATIONS: None. FINDINGS: The patient had enlarged and fatty infiltrated liver. To rule out SIMS, liver wedge biopsy was performed. The patient had a 3 cm hiatal hernia, which we dissected out and repaired primarily. At the completion of the case, PATIENT NAME: AZALIA DOS SANTOS an intraoperative EGD was performed. There was no sign of bleeding or leaks. INDICATIONS: This is a morbidly obese patient with multiple co-morbidities who comes in seeking weight loss surgery in the form of a gastric sleeve. The patient underwent our extensive preoperative testing and was deemed an appropriate candidate. The patient understands the risks, benefits, and alternatives of the above-stated procedure which includes but are not limited to pain, infection, bleeding, leak, pulmonary embolism, hernia occurrence, failure to lose greater than 25% the excess body weight, need for future procedures, risk of weight regain, malnutrition and vitamin deficiencies and a mortality rate of approximately 1 in 400 and the patient agreed to proceed. PROCEDURE IN DETAIL: The patient was given Rocephin 1 mg IV and 40 mg of subcutaneous Lovenox in the preoperative holding area. The patient was brought to the operating room and placed in the supine position on the operating room table. SCDs were applied. General endotracheal anesthesia was induced. An orogastric tube was placed and the patient was prepped and draped in the usual sterile fashion. An 8-mm lateral left subcostal incision was made and an Optical trocar and endoscope were advanced down through the layers of the abdominal wall and into the peritoneum. We insufflated the abdomen and no underlying injuries were noted. Under direct visualization, an 8-mm trocar was placed in the right subcostal space and to the left of the umbilical one. A 12-mm trocar was placed above the umbilicus. To help decrease the patient's postoperative pain and subsequently narcotic use and the associated risk of respiratory depression, we performed bilateral transverse abdominis plane blocks. Using 60 mL of 0.5% Naropin, we injected half to this amount under each subcostal margin from dermatome levels T6 to T10. This was done under laparoscopic visualization and will perform an upper abdominal wall block. At this point the robot was docked. As I examined the abdomen, we noted the patient's liver was enlarged and also fatty infiltrated. Left lobe of the liver extended to cover entire fundus and body of the stomach as well as the spleen. This was an enlarged liver and it was also fatty infiltrated. We are concerned for SIMS and to rule it out, we performed a liver wedge biopsy. On the lateral left lobe of the liver with vessel sealer to wedge out a 1 x 1 cm piece of liver and passed off as specimen. There was good hemostasis obtained. A Trio liver retractor was placed to elevate the left lobe of the liver. With the liver lifted up we could see the patient's hiatal hernia. Using the vessel sealer we opened up the gastrohepatic ligament. The hernia sac along the medial right kade was opened up, and we bluntly dissected the right kade free of the incarcerated stomach and esophagus. The angle of His was then dissected off the left kade and we were able to open up the hernia sac along the medial left kade as well. We were then able to dissect out the hiatus completely in a 360-degree fashion. We then circumferentially dissected around the esophagus taking down all the connective tissue, going up 8 cm into the mediastinum. We reduced the paraesophageal fat and tissue as well as 2 cm of the esophagus back into the peritoneum. The gastroesophageal junction was also noted to be within the peritoneum. We then reapproximated the hiatus posteriorly using running 2-0 nonabsorbable V-Loc suture. After the closure, there was just enough space to pass a grasper between the closure and the esophagus. PATIENT NAME: AZALIA DOS SANTOS We identified the pylorus and approximately 4 cm proximal to it, we opened up the gastrocolic ligament. We took down the greater curve of the stomach with the vessel sealer, obtaining good hemostasis. The short gastrics were all taken down to the base of the left kade. At this point the entire greater curve was mobilized. We then removed the orogastric tube and a 34-Congolese Bougie was advanced down into the pylorus. We then advanced a 60 mm black staple-load with SeamGuard strips and articulated it at a 45 degrees angle going up towards the spleen. We fired it from about 4 cm proximal to the pylorus with care taken to stay outside the vessels at the incisura and the Bougie as well. We then fired 1 black staple load with SeamGuard strips and then 2 green staple loads with SeamGuard strips staying adjacent to the Bougie and going up towards the angle of His. Care was taken to prevent twisting of the sleeve and posterior redundancy either. We then fired a last green staple-load with SeamGuard strips, staying just lateral to the esophagus to prevent stapling upon the GE junction. We then performed an intraoperative EGD to evaluate for bleeding or leak. With the sleeve covered in saline, a mouthguard was placed and the endoscope was introduced down transorally under direct visualization and insufflation. At the GE junction, we noted that there was a tiny dog ear and advanced down through a narrow gastric sleeve around the angularis and into the first portion of the duodenum. There was no sign of bleeding, leaks, or twisting and laparoscopically, we saw no bubbles. Subsequently, we suctioned out the insufflation and withdrew the endoscope and laparoscopically, we suctioned out the irrigation as well. The liver retractor was removed and the robot was undocked. I then removed the specimen through the 12 mm trocar site. Using #1 Vicryls, we reapproximated the fascia here under direct visualization with a suture passer. I then desufflated the abdomen and withdrew the remaining trocars. The skin at all port sites was closed with 4-0 Monocryl in a subcuticular fashion and Dermabond was applied as a dressing. The sponge, needle, and instrument counts were correct and there were no complications. Dictated By: Maggi Mathur MD Date Dictated: 02/08/2023 08:56:10 Date Transcribed: 02/08/2023 09:53:04 [facility] Receipt ID: [id number] Authenticated and Edited by Maggi Mathur MD On 02/28/23 4:54:08 PM at 0451 PATIENT NAME: AZALIA DOS SANTOS [facility] 2023-02-07 13:14:00 [id number] [address] PATIENT NAME: AZALIA DOS SANTOS ADMIT DATE: 02/08/23 ACCOUNT NO: [id number] ROOM NO: [id number].0928 AGE: 37 REPORT TYPE: eELECTROCARDIOGRAM SEX: F ADMITTING PHYSICIAN: Maggi Mathur MD ATTENDING PHYSICIAN: Maggi Mathur MD Order: [id number] Test Reason : PRE OP Test Date/Time Stamp: MonFeb 07 2023 13:14:58 Blood Pressure : / mmHG Vent. Rate : 077 BPM Atrial Rate : 077 BPM P-R Int : 170 ms QRS Dur : 074 ms QT Int : 398 ms P-R-T Axes : 030 047 037 degrees QTc Int : 450 ms Normal sinus rhythm Borderline ECG No previous ECGs available Confirmed by NIMESH WALKER ([id number]) on 02/09/2023 8:47:12 AM Referred By: Maggi Mathur Confirmed by:NIMESH WALKER at 0847 PATIENT NAME: AZALIA DOS SANTOS [facility] 2023-02-01 10:06:00 [id number] [facility] [address] [place] [address] PATIENT NAME: AZALIA DOS SANTOS ADMIT DATE: 02/01/23 ACCOUNT NO: [id number] ROOM NO: AGE: 37 REPORT TYPE: ENDOSCOPY REPORT SEX: F ADMITTING PHYSICIAN: ATTENDING PHYSICIAN:Maggi Mathur MD [facility] Gastroenterology Patient Name: Levon Azalia Attending MD: Maggi Mathur MD Procedure Date: 02/01/2023 10:06 AM Date of : 1985 Admit Type: Preadmit Age: 37 Room: Room 1 Gender: Female Note Status: Finalized Procedure: Upper GI endoscopy Pre Procedure Diagnosis: Heartburn Assistants: Maggi Mathur MD, Allyson Souza (Nurse), Althea Rabago Anesthesia: Monitored Anesthesia Care Procedure: Pre-Anesthesia Assessment: - Prior to the procedure, a History and Physical was performed, and patient medications and allergies were reviewed. The patient is competent. The risks and benefits of the procedure and the sedation options and risks were discussed with the patient. All questions were answered and informed consent was obtained. Patient identification and proposed procedure were verified by the physician, the nurse, the heating and ventilating worker and the rv service technician in the endoscopy suite. Mental Status Examination: alert and oriented. Airway Examination: normal oropharyngeal airway and neck mobility. Respiratory Examination: clear to auscultation. CV Examination: normal. Prophylactic Antibiotics: The patient does not require prophylactic antibiotics. Prior Anticoagulants: The patient has taken no anticoagulant or antiplatelet agents. ASA Grade Assessment: II - A patient with mild systemic disease. After reviewing the risks and benefits, the patient was deemed in satisfactory condition to undergo the procedure. The anesthesia plan was to use monitored anesthesia care (MAC). Immediately prior to administration of medications, the patient was re-assessed for adequacy to receive sedatives. The heart rate, respiratory rate, oxygen saturations, blood pressure, adequacy of pulmonary PATIENT NAME: AZALIA DOS SANTOS ventilation, and response to care were monitored throughout the procedure. The physical status of the patient was re-assessed after the procedure. The benefits, risks, and alternatives to the procedure were discussed and informed consent was obtained from the patient. I've assesed the patient on this date and reviewed the medical history, drug history, and previous anesthesia experience. After obtaining informed consent, the scope was passed under direct vision. Throughout the procedure, the patient's blood pressure, pulse, and oxygen saturations were monitored continuously.s were monitored continuously. The Endosonoscope was introduced through the mouth, and advanced to the second part of duodenum. The upper GI endoscopy was accomplished without difficulty. The patient tolerated the procedure well. Post Procedure Findings: The examined duodenum was normal. Diffuse mild inflammation characterized by erythema was found in the gastric antrum. Biopsies were taken with a cold forceps for histology. Estimated blood loss was minimal. A 3 cm hiatal hernia was present. LA Grade A (one or more mucosal breaks less than 5 mm, not extending between tops of 2 mucosal folds) esophagitis with no bleeding was found. Biopsies were taken with a cold forceps for histology. Estimated blood loss was minimal. Complications: No immediate complications. Estimated Blood Loss: Post Procedure Diagnosis: - Normal examined duodenum. - Gastritis. Biopsied. - 3 cm hiatal hernia. - LA Grade A reflux esophagitis with no bleeding. Biopsied. Recommendation: - Patient has a contact number available for emergencies. The signs and symptoms of potential delayed complications were discussed with the patient. Return to normal activities tomorrow. Written discharge instructions were provided to the patient. - Resume previous diet. - Continue present medications. - Await pathology results. - Return to my office as previously scheduled. Maggi Mathur MD Maggi Mathur MD 02/01/2023 10:30:21 AM This report has been signed electronically. Number of Addenda: 0 PATIENT NAME: AZALIA DOS SANTOS Note Initiated On: 02/01/2023 10:06 AM Procedure Date: 02/01/2023 10:06:13 AM Provation {[id number]}.pdf ProVation FT PDF at 1030 PATIENT NAME: AZALIA DOS SANTOS [facility] 2023-02-01 10:04:00 [facility] Med Order Sheet REPORT #: [id number] REPORT STATUS: Signed DATE: 02/01/23 TIME: 1004 PATIENT: AZALIA DOS SANTOS UNIT #: [id number] ROOM #: BED: : 84 AGE: 37 SEX: F ATTEND: Maggi Mathur MD ADM AUTHOR: Maggi Mathur MD ATTENTION *EDITS and/or ADDENDA must be made in Patient Keeper for this note. * * Edits and ammendments created in [facility] are not visible * * in Patient Keeper or the legal medical record ([facility]). * Discharge Medication Reconciliation Discharge Meds Rec Completed. No Reconciled Orders. at 1004 ATTENTION *EDITS and/or ADDENDA must be made in Patient Keeper for this note. * * Edits and ammendments created in [facility] are not visible * * in Patient Keeper or the legal medical record ([facility]). * [facility] #: [id number] END OF REPORT [facility]
[2024-05-07] MEDS ORDERED: FAMOTIDINE 20 MG/2 ML VIAL IV ONE (08:35)
[2024-05-07] MEDS ORDERED: MORPHINE 4 MG/ML SYR ONE (08:35)
[2024-05-07] MEDS ORDERED: ONDANSETRON 4 MG/2 ML VIAL ONE (08:35)
[2024-05-07] MEDS ORDERED: NA CHLORIDE 0.9% 1,000 ML ONE (08:35)
[2024-05-07 08:46] LABS: Absolute Eosinophils 0.1 K/uL (0-0.5); Absolute Lymphocytes (CBC) 0.2 K/uL (0.7-4.9); Absolute Monocytes 0.3 K/uL (0.1-1.3); Absolute Neutrophil 5.1 K/uL (1.8-8.0); Basophils % 0.1 % (0-1.3); Eosinophils % 1.2 % (0-4.4); Hematocrit 43.2 % (36.0-45.0); Lymphocytes % 3.8 % (15.3-44.8); MCH 30.8 pg (27.0-35.0); MCHC 34.7 g/dL (32.0-36.0); MCV 88.8 fL (80-100); MPV 7.9 fL (7.6-11.3); Monocytes % 5.4 % (3.3-12.3); Neutrophils % 89.5 % (41.7-73.7); Platelets 215 thou/uL (152-406); RBC Red Blood Cell Count 4.87 M/uL (3.86-4.86); Red Cell Distribution Width 12.6 % (12.1-15.2)
[2024-05-07 09:04] LABS: Albumin 3.7 g/dL (3.4-5.0); Albumin/Globulin Ratio 0.9 (1.1-1.8); Bilirubin Total 0.7 mg/dL (0.2-1.0); Protein, Total 7.7 g/dL (6.4-8.2)
--- NOTE | 2024-05-07 09:17 | RAD REPORT ---
EXAMINATION: CT ABDOMEN AND PELVIS WITH CONTRAST CLINICAL INDICATION: Abdominal pain TECHNIQUE: CT abdomen and pelvis was performed, after the administration of 100 cc Isovue-300.. Sagit hoa and coronal reconstructions were obtained. One or more of the following dose reduction techniques were used: Automated exposure control, adjustment of the mA and kV according to patient si ze, and iterative reconstruction. Unless otherwise specified, incidental findings do not require dedicated imaging follow-up. [id number]. Oral contrast was not given which limits evaluation of bowel and appendix. COMPARISON: .None FINDINGS: Small hiatal hernia Liver, spleen, pancreas, adrenals and kidneys appear unremarkable No evidence of diverticulitis. Small hiatal hernia. Postsurgical changes involve the stomach. Fluid within nondilated large and small bowel. Appendix not clearly seen. Retroverted uterus. No adnexal mass Borderline gallbladder distention : IMPRESSION: Fluid within nondilated large and small bowel may indicate an enteritis Borderline gallbladder distention
--- NOTE | 2024-05-07 09:49 | RAD REPORT ---
EXAM: Right upper quadrant ultrasound. CLINICAL HISTORY: Abdominal pain COMPARISON: CT abdomen May 07, 2024 FINDINGS: A gallstone is not seen. Borderline gallbladder distention. Gallbladder wall not thickened. Biliary tree normal caliber IMPRESSION: Borderline gallbladder distention. No evidence of acute cholecystitis
[2024-05-07 10:28] LABS: Blood Morphology Comment NOT SEEN (NOT SEEN); Platelet Estimate ADEQ; White Blood Cell Scan OK (OK)
--- NOTE | 2024-05-07 10:55 | EDPHYS ---
Physician Documentation [facility] Name: Azalia Palumbo Age: 38 yrs Sex: Female : 1985 Arrival Date: 05/07/2024 Time: 08:00 Bed 6 Private MD: ED Physician Parrish Brady HPI: 05/07 10:54 This 38 yrs old Female presents to ER via Ambulatory with complaints of Abdominal Pain, ms3 Nausea/Vomiting/Diarrhea, Headache. 10:54 38-year-old female with past medical history of depression and anxiety presents to the [facility] emergency department for nausea and diarrhea that began yesterday. Patient notes she has also had abdominal cramping that she rates an 8/10. She denies any alleviating or inciting factors. Patient endorses fevers and chills.. 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 - Infectious Disease History:: Denies. - Social history:: Smoking status: Patient denies any tobacco usage or history of. ROS: 10:54 Constitutional: Negative for fever, and chills. Cardiovascular: Negative for chest ms3 pain, and palpitations. Respiratory: Negative for shortness of breath, cough, wheezing, and pleuritic chest pain, 10:54 Skin: Negative for injury, rash, and discoloration, 10:54 Abdomen/GI: Positive for abdominal pain, nausea, diarrhea, 10:54 Neuro: Positive for headache, Exam: 10:54 Constitutional: This is a well developed, well nourished patient who is awake, alert, ms3 and in no acute distress. Head/Face: Normocephalic, atraumatic. Cardiovascular: Regular rate and rhythm with a normal S1 and S2. No gallops, murmurs, or rubs. Normal PMI, no JVD. No pulse deficits. Respiratory: Lungs have equal breath sounds bilaterally, clear to auscultation and percussion. No rales, rhonchi or wheezes noted. No increased work of breathing, no retractions or nasal flaring. Abdomen/GI: Soft, non-tender, with normal bowel sounds. No distension or tympany. No guarding or rebound. No evidence of tenderness throughout. Skin: Warm, dry with normal turgor. Normal color with no rashes, no lesions, and no evidence of cellulitis. MS/ Extremity: Pulses equal, no cyanosis. Neurovascular intact. Full, normal range of motion. Vital Signs: 08:24 BP 119 / 85; Pulse 125; Resp 16; Temp 98.1(O); Pulse Ox 99% on R/A; Weight 75.75 kg; hb Height 5 ft. 7 in. ; Pain 8/10; 08:54 BP 119 / 83; Pulse 104; Resp 18; Pulse Ox 100% on R/A; ld1 10:13 BP 117 / 80; Pulse 99; Resp 18; Pulse Ox 99% on R/A; ld1 11:00 BP 105 / 72; Pulse 99; Resp 15; Pulse Ox 100% ; cm10 08:24 Body Mass Index 26.16 (75.75 kg, 170.18 cm) hb 08:24 Pain Scale: Adult hb MDM: 08:24 Medical Screening Exam initiated ms3 10:54 Differential diagnosis: Nonspecific abd pain, gastritis, cholecystitis, pancreatitis, ms3 viral gastroenteritis, gastroenteritis. Data reviewed: vital signs, nurses notes, lab test result(s), radiologic studies, CT scan, ultrasound, and as a result, I will discharge patient. Consideration of Admission/Observation Escalation of care including admission/observation considered. Patient symptoms improved, CT and ultrasound did not show cholecystitis. I considered the following discharge prescriptions or medication management in the emergency department Medications were administered in the Emergency Department. See MAR. Counseling: I had a detailed discussion with the patient and/or guardian regarding the historical points, exam findings, and any diagnostic results supporting the discharge/admit diagnosis, lab results, radiology results, the need for outpatient follow up, to return to the emergency department if symptoms worsen or persist or if there are any questions or concerns that arise at home. Special discussion: Based on the patient's Hx, exam, and Dx evaluation, there is no indication for emergent surgery or inpatient Tx. It is understood by the patient/guardian that if the Sx's persist or worsen they need to return immediately for re-evaluation. ED course: Discussed labs, CT findings, ultrasound findings with patient. Patient to follow-up with primary care physician in 2 to 3 days. Patient understands and agrees with plan. All questions were answered. Return precautions discussed include vomiting, inability to tolerate p.o., worsening symptoms, or any other concerns. On reevaluation patient is alert and oriented x 4, no apparent distress, nontoxic-appearing, ambulatory in the emergency department. 05/07 08:25 Order name: CBC with Diff; Complete Time: 10:50 ms3 05/07 08:25 Order name: CMP; Complete Time: 09:21 ms3 05/07 08:25 Order name: Lipase; Complete Time: 09:21 ms3 05/07 10:28 Order name: CBC Smear Scan; Complete Time: 10:50 EDMS 05/07 08:25 Order name: CT Abd/Pelvis - IV Contrast Only; Complete Time: 09:21 ms3 05/07 09:22 Order name: US Abdomen Limited: Gallbladder; Complete Time: 10:50 ms3 05/07 08:25 Order name: IV Saline Lock; Complete Time: 08:39 ms3 05/07 08:25 Order name: Labs collected and sent; Complete Time: 08:39 ms3 Administered Medications: 08:47 Drug: Famotidine IVP 20 mg IVP once; dilute with 10 mL 0.9% NaCl; give over 2 minutes ld1 Route: IVP; Site: right antecubital; 11:20 Follow up: Response: No adverse reaction cm10 08:47 Drug: Ondansetron IVP 4 mg IVP once; over 2 minutes Route: IVP; Site: right antecubital;ld1 11:20 Follow up: Response: No adverse reaction cm10 08:47 Drug: morphine IVP or IV 4 mg IVP once over 4 mins Route: IVP; Infused Over: 4 mins; ld1 Site: right antecubital; 11:20 Follow up: Response: No adverse reaction cm10 08:47 Drug: NS 0.9% IV 1000 ml IV at 1 bolus Per protocol; to be given as a bolus over 60 ld1 minutes Route: IV; Rate: 1 bolus; Site: right antecubital; 11:20 Follow up: Response: No adverse reaction; IV Status: Completed infusion; IV Intake: cm10 1000ml Disposition Summary: 05/07/24 10:54 Discharge Ordered Notes: Location: Home ms3 Condition: Stable ms3 Diagnosis - Diarrhea, unspecified ms3 - Nausea ms3 Followup: ms3 - With: Diogenes Quiroga DO - When: 2 - 3 days - Reason: Recheck today's complaints Discharge Instructions: - Discharge Summary Sheet ms3 - Food Choices to Help Relieve Diarrhea, Adult ms3 - Diarrhea, Adult ms3 - Nausea, Adult ms3 Forms: - Medication Reconciliation Form ms3 - Antibiotic Education ms3 - Prescription Opioid Use ms3 - Patient Portal Instructions ms3 - Leadership Thank You Letter ms3 Prescriptions: - ondansetron 4 mg Oral Tablet,disintegrating - take 1 tablet ORAL route every 8 hours; 15 tablet; Refills: 0, Product ms3 Selection Permitted Signatures: Dispatcher [employer] Francine Brambila RN RN Parrish Brady DO DO ms3 Kylah Brady RN RN ld1 Sravanthi Sherwood RN cm10
--- NOTE | 2024-05-07 10:55 | ER ---
Nurse's Notes [facility] Name: Azalia Palumbo Age: 38 yrs Sex: Female : 1985 Arrival Date: 05/07/2024 Time: 08:00 Bed 6 Private MD: Diagnosis: Diarrhea, unspecified;Nausea Presentation: 05/07 08:24 Chief complaint: N/D, abdominal cramping, chills, and fever since last night. TMAX 102. hb Coronavirus screen: At this time, the client does not indicate any symptoms associated with coronavirus-19. Ebola Screen: No symptoms or risks identified at this time. Initial Sepsis Screen: Does the patient meet any 2 criteria? No. Patient's initial sepsis screen is negative. Does the patient have a suspected source of infection? No. Patient's initial sepsis screen is negative. Risk Assessment: Do you want to hurt yourself or someone else? Patient reports no desire to harm self or others. Onset of symptoms was May 06, 2024. 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 - Infectious Disease History:: Denies. - Social history:: Smoking status: Patient denies any tobacco usage or history of. Screenin:13 [facility] ED Fall Risk Assessment (Adult) History of falling in the last 3 months, ld1 including since admission No falls in past 3 months (0 pts) Confusion or Disorientation No (0 pts) Intoxicated or Sedated No (0 pts) Impaired Gait No (0 pts) Mobility Assist Device Used No (0 pt) Altered Elimination No (0 pt) Score/Fall Risk Level 0 - 2 = Low Risk Oriented to surroundings, Hourly rounding (assess needs \T\ fall precautionary measures) done. Abuse screen: Denies threats or abuse. Denies injuries from another. Nutritional screening: No deficits noted. Tuberculosis screening: No symptoms or risk factors identified. Assessment: 10:13 General: Appears in no apparent distress. comfortable, Behavior is calm, cooperative, ld1 appropriate for age. 10:13 Reassessment: See triage assessment. ld1 10:13 Pain: Complains of pain in chest. GI: Bowel sounds present X 4 quads. Abd is soft and ld1 non tender X 4 quads. 11:19 Reassessment: Patient and/or family updated on plan of care and expected duration. Pain cm10 level reassessed. Patient is alert, oriented x 3, equal unlabored respirations, skin warm/dry/pink. Patient states feeling better. Patient states symptoms have improved. Vital Signs: 08:24 BP 119 / 85; Pulse 125; Resp 16; Temp 98.1(O); Pulse Ox 99% on R/A; Weight 75.75 kg; hb Height 5 ft. 7 in. ; Pain 8/10; 08:54 BP 119 / 83; Pulse 104; Resp 18; Pulse Ox 100% on R/A; ld1 10:13 BP 117 / 80; Pulse 99; Resp 18; Pulse Ox 99% on R/A; ld1 11:00 BP 105 / 72; Pulse 99; Resp 15; Pulse Ox 100% ; cm10 08:24 Body Mass Index 26.16 (75.75 kg, 170.18 cm) hb 08:24 Pain Scale: Adult hb ED Course: 08:04 Patient arrived in ED. cj3 08:06 Parrish Brady DO is Attending Physician. ms3 08:25 Triage completed. hb 08:31 Kylah Brady, RN is Primary Nurse. ld1 08:39 CBC with Diff Sent. bc6 08:39 CMP Sent. bc6 08:39 Lipase Sent. bc6 08:39 Initial lab(s) drawn, by va, sent to lab. Inserted saline lock: 20 gauge in right bc6 antecubital area, using aseptic technique. Blood collected. Flushed with 10 mL NS. 09:01 CT Abd/Pelvis - IV Contrast Only In Process Unspecified. EDMS 09:43 US Abdomen Limited: Gallbladder In Process Unspecified. EDMS 10:13 No provider procedures requiring assistance completed. ld1 10:13 Patient has correct armband on for positive identification. Placed in gown. Bed in low ld1 position. Call light in reach. Side rails up X2. monitoring analyst on. Pulse ox on. NIBP on. Door closed. Noise minimized. Warm blanket given. 10:54 Diogenes Quiroga DO is Referral Physician. ms3 11:20 IV discontinued, intact, bleeding controlled, No redness/swelling at site. Pressure cm10 dressing applied. 11:20 Provided Education on: FOLLOW-UP INSTRUCTIONS. cm10 11:21 Arm band placed on. cm10 Administered Medications: 08:47 Drug: Famotidine IVP 20 mg IVP once; dilute with 10 mL 0.9% NaCl; give over 2 minutes ld1 Route: IVP; Site: right antecubital; 11:20 Follow up: Response: No adverse reaction cm10 08:47 Drug: Ondansetron IVP 4 mg IVP once; over 2 minutes Route: IVP; Site: right antecubital;ld1 11:20 Follow up: Response: No adverse reaction cm10 08:47 Drug: morphine IVP or IV 4 mg IVP once over 4 mins Route: IVP; Infused Over: 4 mins; ld1 Site: right antecubital; 11:20 Follow up: Response: No adverse reaction cm10 08:47 Drug: NS 0.9% IV 1000 ml IV at 1 bolus Per protocol; to be given as a bolus over 60 ld1 minutes Route: IV; Rate: 1 bolus; Site: right antecubital; 11:20 Follow up: Response: No adverse reaction; IV Status: Completed infusion; IV Intake: cm10 1000ml Medication: 10:13 VIS not applicable for this client. ld1 Intake: 11:20 IV: 1000ml; Total: 1000ml. cm10 Outcome: 10:54 Discharge ordered by . ms3 11:20 Discharged to home ambulatory, cm10 11:20 Condition: good 11:20 Discharge instructions given to patient, Instructed on discharge instructions, follow up and referral plans. medication usage, Demonstrated understanding of instructions, follow-up care, medications, Prescriptions given X 1, 11:21 Patient left the ED. cm10 Signatures: Dispatcher [employer] EDMS Francine Olguin RN RN Parrish Brady DO DO ms3 Kylah Brady RN RN ld1 Nicole Wells 6 Sravanthi Sherwood RN RN cm10 Magaly Armas cj3
[2024-05-07 12:06] VITALS: TEMP 98.1
[2024-05-07 12:10] VITALS: BP 105/72; O2SAT 100
== END 2024-05-07 11:21 | disposition home or self-care (01) ==
LOC: ER 08:00
DX: R19.7 Diarrhea, unspecified (principal); R11.0 Nausea
CPT/HCPCS: 96361; 85025; 36415; 83690; 80053; 74177; 76705; 96375; 96374; 99285; Q9967; J2405; J7030

== ENCOUNTER 2024-11-28 21:34 | Emergency (ER) | payer OTHER ==
--- OUTSIDE RECORDS SUMMARY | 2024-11-28 21:39 | XMS REPORT | Continuity of Care Document ---
Author Name Unknown Address [address] [facility] [address] [place] [address] Organization [facility] Address [address] [facility] [address] [place] [address] Care Team Providers Care Pharmacovigilance Specialist Name Role Phone Kylah Holland NP Primary Care Physician [phone] Jack Roche MD Attending Clinician JACK ROCHE Attending Clinician Unavailab Que De La [place] Attending Clinician Unavailable Kashmir Bruner Attending Clinician Unavailable Maggi Mathur Attending Clinician Unavailable Jennie Attending Clinician UnavailVentura Padilla MD Attending Clinician [phone] VENTURA MATA Attending Clinician Unavailable Doctor Unassigned, [place] Attending Clinician U Malia Dennison July Attending Clinician Unavailyenifer Dubon MD, June Attending Clinician IRIS DUBON JUNE Attending Clinician Unavailab Que De La Rosa Admitting Clinician Unavailable Maggi Mathur Admitting Clinician Unavailable Physician, No Primary Care Admitting Clinician U see KNOW, DOES_NOT Admitting Clinician Unavailable Jennie Admitting Clinician UnavailVENTURA Padilla Admitting Clinician Unavailable Payers Payer Name Policy Type Policy Number Effective Date Expirati on Date Source [facility] Other [id number] 2018 00:00:00 [facility] () [id number] 2017 00:00:00 BETTY SR [id number] 2019 00:00:00 Problems Condition Name Condition Details [...] [facility] Inflammato ry polyarthro eirc Inflammato ry Polyarthro eric Problem Active 10-30 00:00: 00 [facility] 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 Lumbosacra l Spondylosi s with Radiculopa thy Problem Active 10-30 00:00: 00 [facility] Depression with anxiety Depression with anxiety Problem Active [facility] Other chronic pain Other chronic pain Problem Active [facility] Gastroesop hageal reflux disease, esophagiti s presence not specified Gastroesop hageal reflux disease, esophagiti s presence not specified Problem Active [facility] 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 Active [facility] 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 [facility] PTSD (post-trau matic stress disorder) PTSD (post-trau matic stress disorder) Problem Active [facility] Lumbar disc herniation Lumbar disc herniation Problem Active [facility] Zi' s thyroiditi s Zi' s thyroiditi s Problem Active [facility] Flu-like symptoms Flu-like symptoms Diagnosis Active [facility] No known active problems No known active problems Disease Univers [facility] Allergies, Adverse Reactions, Alerts Allergy Name Allergy Type Status Severity Reaction(s) Onset Date Inactive Date Treating Clinician Comments Source codeine DA Active U UNKNOWN 2022-02 00:00: 00 [facility] CODIENE DA Active U NAUSEA VOMITING 2022-02 00:00: 00 [facility] CODEINE DRUG INGREDI Active High N/V 04-23 00:00: 00 [facility] Codeine Propensi ty to adverse reaction s Active Nausea And Vomiting 04-23 00:00: 00 [facility] gi[facility] [place] [facility] codeine DA Active MO 2016-02 00:00: 00 [facility] codeine DA Active MO NAUSEA AND SEVERE VOMITTING. 2016-02 00:00: 00 [facility] codeine Adverse Reaction Active Info Not Available [facility] Codeine Allergy to substanc e Active Vomiting [facility] Social History Social Habit Start Date Stop Date Quantity Comments Source Gender identity 2023-05-13 03:05:11 Identifies as female gender (finding) Peer60 ASSERTION Possible [facility] [employer] Sexual orientation [facility] [place] [employer] History of Social function 2024-09-03 00:00:00 2024-09-03 00:00:00 [facility] [employer] Cigarettes smoked current (pack per day) - Reported 2024-09-03 00:00:00 2024-09-03 00:00:00 [facility] [employer] Cigarette pack-years 2024-09-03 00:00:00 2024-09-03 00:00:00 [facility] [employer] Tobacco use and exposure 2024-09-03 00:00:00 2024-09-03 00:00:00 Smokeless tobacco non-user [facility] Juanito [employer] Alcoholic beverage intake 2024-09-03 00:00:00 2024-09-03 00:00:00 .57 /d [facility] [employer] Sex 2023-05-13 03:05:11 2023-05-13 03:05:11 Female (finding) Cayla Neil Exposure to SARS-CoV-2 (event) 2020-12-21 00:00:00 2021-01-20 10:36:00 Not sure [facility] History of tobacco use 2015-02-20 00:00:00 Cigarette Smoker Cayla Neil Sex Assigned At 1985 00:00:00 1985 00:00:00 [facility] Smoking Status Start Date Stop Date Source Ex-smoker 2024-09-03 00:00:00 2024-09-03 00:00:00 M johny Neil Never smoked tobacco [facility] Medications Ordered Medication Name Filled Medication Name Start Date Stop Date Current Medication? Ordering Clinician Indication Dosage Frequency Signature (SIG) Comments Components Source traMADol (Ultram) 50 MG tablet traMADol (Ultram) 50 MG tablet 09-03 10:22: 32 Yes TAKE ONE (1) TABLET(S) BY MOUTH EVERY SIX HOURS NEEDED FOR BACK / NECK PAIN. Wilber Neil levothyroxi ne (Synthroid, Levoxyl) 6.25 mcg split tablet levothyroxi ne (Synthroid, Levoxyl) 6.25 mcg split tablet 09-03 10:22: 32 Yes 50ug QD Take 50 mcg by mouth 1 time each day. Wilber Neil methocarbam ol (Robaxin) 750 MG tablet methocarbam ol (Robaxin) 750 MG tablet 09-03 00:00: 00 Yes [id number] Take 1 tab po up to 3 times a day as needed Wilber Neil lamoTRIgine (LaMICtal XR) 100 mg tablet sustained-r elease 24 hour 24 hr tablet lamoTRIgine (LaMICtal XR) 100 mg tablet sustained-r elease 24 hour 24 hr tablet 06-17 00:00: 00 Yes 100mg Take 100 mg by mouth at bedtime. Wilber Neil sertraline (Zoloft) 25 MG tablet sertraline (Zoloft) 25 MG tablet 4-02 00:00: 00 Yes Wilber Neil omeprazole (PriLOSEC) [address] capsule omeprazole (PriLOSEC) [address] capsule 04-01 00:00: 00 Yes Faribaalejandro giovanni [facility] sertraline HCl (ZOLOFT ORAL) 2020-02 10:54: 35 Yes Zoloft [facility] omeprazole 20 mg TbLD 2020-02 10:54: 35 Yes omeprazole Univer s [facility] traMADoL 50 mg tablet 2020-02 10:54: 35 Yes tramadol [facility] Ferrous Sulfate (SLOW FE) 142 mg (45 mg iron) tablet 2020-02 10:54: 35 Yes Take by mouth. [facility] DULoxetine 60 mg capsule 2020-02 10:52: 25 01-20 00:00 :00 No 60mg Take 60 mg by mouth daily. [facility] L-LYSINE ORAL 2020-02 10:52: 16 01-20 00:00 :00 No Take by mouth daily. [facility] gabapentin 100 mg capsule 2020-02 10:52: 07 01-20 00:00 :00 No 100mg Take 100 mg by mouth as needed. [facility] levothyroxi ne sodium (SYNTHROID ORAL) 2020-02 10:51: 54 Yes 50ug Take 50 mcg by mouth daily. [facility] ketoconazol e 2 % shampoo 04-23 00:00: 00 01-20 00:00 :00 No Apply to area(s) once daily as needed for Itching. [facility] clindamycin 1 % solution 04-23 00:00: 00 01-20 00:00 :00 No [id number] Apply to affected area(s) 2 (two) times daily as needed for Rash or Itching. [facility] clobetasoL 0.05 % cream 3 00:00: 00 01-20 00:00 :00 No Apply to area(s) 2 (two) times daily. [facility] urea 40 % cream 04-23 00:00: 00 01-20 00:00 :00 No Apply to area(s) daily. [facility] Tamiflu Tamiflu 2018-02 00:00: 00 Yes Diogenes Quiroga 1 capsule [facility] omeprazole omeprazole No omeprazole [facility] buspirone 5 mg tablet buspirone 5 mg tablet No buspirone 5 mg tablet [facility] Cymbalta Cymbalta Yes Diogenes Quiroga 1 capsule [facility] Synthroid Synthroid Yes Diogenes Quiroga 1 tablet on an empty stomach in the morning [facility] Pantoprazol e Sodium Pantoprazol e Sodium Yes Diogenes Quiroga 1 tablet [facility] Valtrex Valtrex Yes Diogenes Quiroga 1 tablet [facility] Gabapentin Gabapentin Yes Diogenes Quiroga (Prior Auth: Rx Ref#:[id number]) [facility] Vitamin D (Ergocalcif hermann) Vitamin D (Ergocalcif hermann) Yes Diogenes Quiroga (Prior Auth: Rx Ref#:[id number]) [facility] diclofenac potassium 50 mg tablet TAKE 1 [...] route. [facility] metoprolol [...] DAILY. [facility] valacyclovi r 1 gram tablet valacyclovi r 1 gram tablet No valacyclov ir 1 gram tablet [facility] L norgest/E estradiol-E estrad 0.15 mg-30 mcg (84)/10 mcg(7) tabs,3mos Take 1 tablet every day by oral route. L norgest/E estradiol-E estrad 0.15 mg-30 mcg (84)/10 mcg(7) tabs,3mos Take 1 tablet every day by oral route. No 1 Q1D L norgest/E estradiol- E estrad 0.15 mg-30 mcg (84)/10 mcg(7) tabs,3mos Take 1 tablet every day by oral route. [facility] lamotrigine 25 mg tablet TAKE TWO (2) TABLET(S) BY MOUTH AT BEDTIME. lamotrigine 25 mg tablet TAKE TWO (2) TABLET(S) BY MOUTH AT BEDTIME. No lamotrigin e 25 mg tablet TAKE TWO (2) TABLET(S) BY MOUTH AT BEDTIME. [facility] levothyroxi ne levothyroxi ne No levothyrox ine [facility] methocarbam ol 750 mg tablet TAKE [...] DAY NEEDED FOR MUSCLE SPASMS OR PAIN. [facility] metoprolol tartrate 50 mg-hydrochl orothiazide 25 mg tablet 1 tablet every day by oral route. metoprolol tartrate 50 mg-hydrochl orothiazide 25 mg tablet 1 tablet every day by oral route. No 1 Q1D metoprolol tartrate 50 mg-hydroch lorothiazi de 25 mg tablet 1 tablet every day by oral route. [facility] Vital Signs Vital Name Observation Time Observation Value Comments Pasha green Systolic blood pressure 2024-09-03 10:16:00 140 mm[Hg] [facility] Her morales [facility] Diastolic blood pressure 2024-09-03 10:16:00 74 mm[Hg] [facility] Body height 2024-09-03 10:16:00 170.2 cm Williamsmariusz saeed [place] [facility] Body weight 2024-09-03 10:16:00 79.379 kg Williams christophe [place] [facility] BMI 2024-09-03 10:16:00 27.41 kg/m2 [facility] Systolic blood pressure 2024-09-03 10:16:00 140 mm[Hg] [facility] Her morales [facility] Diastolic blood pressure 2024-09-03 10:16:00 74 mm[Hg] [facility] Her morales [facility] Body height 2024-09-03 10:16:00 170.2 cm Williamsmariusz saeed [place] [facility] Body weight 2024-09-03 10:16:00 79.379 kg Williamsmariusz saeed [facility] BMI 2024-09-03 10:16:00 27.41 kg/m2 [facility] BP Diastolic 2022-06-15 00:00:00 77 mm[Hg] [facility] Height 2022-06-15 00:00:00 67 [in_i] [facility] BMI (Body Mass Index) 2022-06-15 00:00:00 32.6 kg/m2 [facility] BP Systolic 2022-06-15 00:00:00 110 mm[Hg] [facility] Body Weight 2022-06-15 00:00:00 208 [lb_av] [facility] Height 2022-05-24 00:00:00 67 [in_i] [facility] BMI (Body Mass Index) 2022-05-24 00:00:00 32.7 kg/m2 [facility] Body Weight 2022-05-24 00:00:00 209 [lb_av] [facility] Systolic blood pressure 2021-01-20 16:51:00 135 mm[Hg] [facility] Diastolic blood pressure 2021-01-20 16:51:00 83 mm[Hg] [facility] Heart rate 2021-01-20 16:51:00 100 /min [facility] Respiratory rate 2021-01-20 16:51:00 20 /min [facility] Body height 2021-01-20 16:51:00 170.2 cm [facility] Body weight 2021-01-20 16:51:00 97.977 kg [facility] BMI 2021-01-20 16:51:00 33.83 kg/m2 [facility] Oxygen saturation in Arterial blood by Pulse oximetry 2021-01-20 16:51:00 98 /min [facility] Procedures Procedure Date / Time Performed Performing Clinician Source EXTERNAL MRI 2024-10-02 11:21:04 Jack Roche [facility] EXTERNAL MRI 2024-10-02 11:09:51 Jack Roche [facility] EMG 2024-09-03 00:00:00 [facility] MRI brain w and wo IV contrast 2024-09-03 00:00:00 [facility] [id number] 2023-02-08 00:00:00 [facility] [id number] 2023-02-08 00:00:00 [facility] [id number] 2023-02-08 00:00:00 [facility] [id number] 2023-02-08 00:00:00 [facility] [id number] 2023-02-08 00:00:00 [facility] RADEX SPI LUMBOSAC MINIMUM 4 VIEWS 2022-05-24 00:00:00 [facility] TRANSTHORACIC ECHO (TTE) COMPLETE 2021-02-15 20:16:00 Ventura Mata [facility] ASSIGNMENT OF BENEFITS 2021-02-15 19:20:44 Docto r Unassigned, [place] [facility] HB ECG ROUTINE & RHYTHM STRIP 2021-01-20 17:00:11 MalikAshwinrichard [facility] Laparoscopy 2015-07-25 00:00:00 Edwige Anne edical Eye Surgery [facility] Other [facility] Ophthalmologic Surgery [facility] Plan of Care Planned Activity Planned Date Details Comments Source Diagnostic Test Pending 2022-06-15 00:00:00 [place] IgE Ab [Units/volume] in Serum [code = 6195-2] [facility] Instructions [facility] Encounters Start Date/Time End Date/Time Encounter Type Admission Type Attending Clinicians Care Facility Care Department Encounter ID Source 2024-10-02 00:00:00 2024-11-02 23:48:34 Orders Only Jack Roche [id number] 350.1.13.70 8.2.7.2.[id number] [facility] 2024-09-30 12:30:00 2024-09-30 12:33:20 Procedure Visit Jack Roche [id number] 350.1.13.70 8.2.7.2.[id number] [facility] 2024-09-30 11:53:05 2024-09-30 12:33:20 [id number] 2024-09-03 10:20:00 2024-09-03 11:00:41 Consult Jack Roche [id number] 350.1.13.70 8.2.7.2.[id number] [facility] 2024-09-03 10:04:43 2024-09-03 11:00:41 Outpatient Elective JACK ROCHE EOUT EOUT [id number] EOUT 2023-03-08 17:24:00 2023-03-10 12:22:00 Inpatient EM Que Oro [facility] MAS [id number] [facility] 2023-02-20 11:24:00 2023-02-20 13:39:00 Emergency EM Kashmir Bruner [facility] DALY [id number] [facility] 2023-02-08 00:11:00 2023-02-10 12:52:00 Inpatient Maggi Ochoa [facility] MEDI.01 [id number] [facility] 2023-02-07 00:00:00 2023-02-08 00:10:00 Outpatient CLOTILDE Mathur Morgan [facility] ZZZB [id number] [facility] 2023-02-01 03:07:00 2023-02-01 03:07:00 Outpatient CLOTILDE Mathur Morgan [facility] ENDO [id number] [facility] 2022-06-15 00:00:00 2022-06-15 00:00:00 Lucas Schuster MD: [address] [place] [address] , Ph. formerly [facility] - _[facility] [place] Office [id number] [facility] 2022-05-24 00:00:00 2022-05-24 00:00:00 Mainor Nieves MD: [address] [place] [phone] , Ph. [phone] [facility] [place] - FOG_[facility] [id number] [facility] 2021-02-16 00:00:00 2021-02-16 00:00:00 Patient Secure Ventura Mata [facility] 1.2.840.114 350.1.13.10 4.2.7.2.686 [id number] [facility] 2021-02-15 13:23:53 2021-02-15 23:59:00 Outpatient VENTURA SANDOVAL [facility] [id number] [facility] 2021-02-15 13:23:53 2021-02-15 23:59:00 Hospital Encounter Ventura Mata [facility] 1.2.840.114 350.1.13.10 4.2.7.2.686 [id number] [facility] 2021-02-15 00:00:00 2021-02-15 00:00:00 Orders Only Doctor Unassigned, [place] [facility] 1.2.840.114 350.1.13.10 4.2.7.2.686 [id number] [facility] 2021-02-01 09:00:00 2021-02-01 09:00:00 [facility] [id number] [facility] 2021-01-24 00:00:00 2021-01-24 00:00:00 Patient Secure Msg Malik [facility] [employer] 1.2.840.114 350.1.13.10 4.2.7.2.686 [id number] [facility] 2021-01-20 11:38:02 2021-01-20 23:59:00 [facility] 1.2.840.114 350.1.13.10 4.2.7.2.686 [id number] [facility] 2021-01-20 11:38:02 2021-01-20 23:59:00 [facility] [id number] [facility] 2021-01-20 11:38:02 2021-01-20 11:38:02 [facility] [id number] [facility] 2021-01-20 11:20:00 2021-01-20 11:31:59 Outpatient R MALIK [facility] [id number] [facility] 2021-01-20 10:37:24 2021-01-20 11:31:59 Office Visit Malik Ventura [facility] MELIA BOWMAN [facility] 1..840.114 350.1.13.10 4.2.7.2.686 [id number] [facility] 2021-01-20 00:00:00 2021-01-20 00:00:00 Orders Only Doctor Unassigned, [place] [facility] 1..840.114 350.1.13.10 4.2.7.2.686 [id number] [facility] 2021-01-13 09:00:00 2021-01-13 09:00:00 [facility] [id number] [facility] 2021-01-05 00:00:00 2021-01-05 00:00:00 Orders Only Doctor Unassigned, [place] [facility] 1..840.114 350.1.13.10 4.2.7.2.686 [id number] [facility] 2019-11-01 14:30:00 2019-11-01 14:30:00 Outpatient Malia Nowak HCAT[facility] RADI [id number] [facility] 2019-04-24 14:24:09 2019-05-18 20:04:36 Office Visit Iris Dubon [facility] 1..840.114 350.1.13.10 4.2.7.2.686 [id number] 2019-04-24 14:40:00 2019-04-24 14:40:00 Outpatient IRIS JOHANSEN [facility] [id number] [facility] 2019-01-01 14:42:00 2019-01-01 14:42:00 Outpatient Rosemarie [place] [facility] Medicine [facility] [id number] [facility] 2019-01-01 14:30:00 2019-01-01 14:30:00 [facility] [id number] [facility] 2018-10-17 08:30:00 2018-10-17 08:30:00 Outpatient [facility] [id number] [facility] 2018-08-02 10:00:00 2018-08-02 10:00:00 Outpatient [facility] [id number] [facility] 2018-06-21 14:45:00 2018-06-21 14:45:00 Outpatient [facility] [id number] [facility] 2018-02-27 13:45:00 2018-02-27 13:45:00 Outpatient [facility] [id number] [facility] 2018-01-29 11:15:00 2018-01-29 11:15:00 Outpatient [facility] [id number] [facility] Results Test Description Test Time Test Comments Results Result Co mments Source BASIC METABOLIC [id number] 07:09:00* Test Item Value Reference Range Interpretation [...] mg/dL 8.7-10.4 L REPEAT RESULT 8. 1 [id number] 07:09:00* Test Item Value Reference Range Interpretation Comme nts PHOSPHOROUS (test code = PHOS) 3.2 mg/dL 2.4-5.1 N [id number] 07:09:00* Test Item Value Reference Range Interpretation Comme nts MAGNESIUM (test code = MAG) 1.8 mg/dL 1.6-2.6 N UA RFLX MICR CULT IF [id number] 19:27:00* Test Item Value Reference Range Interpretation [...] code = ALKP) 80.0 U/L 46-116 N [id number] 19:08:00* Test Item Value Reference Range Interpretation Comme nts LIPASE (test code = LIP) 71 U/L 12-53 H [id number] 19:08:00* Test Item Value Reference Range Interpretation Comme nts MAGNESIUM (test code = MAG) 1.9 mg/dL 1.6-2.6 N HCG SERUM [id number] 18:56:00* Test Item Value Reference Range Interpretation Comme nts HCG SERUM QUAL (test code = HCGQL) NEGATIVE NEGATIVE CBC W/MANUAL [id number] 18:35:00* Test Item Value Reference Range Interpretation [...] code = LYMPH) % 20-40 BASIC METABOLIC [id number] 13:04:00* Test Item Value Reference Range Interpretation [...] CA) 9.3 mg/dL 8.7-10.4 N LIVER FUNCTION [id number] 13:04:00* Test Item Value Reference Range Interpretation [...] ode = ALKP) 89.0 U/L 46-116 N [id number] 13:04:00* Test Item Value Reference Range Interpretation Comme nts LIPASE (test code = LIP) 39 U/L 12-53 N [id number] 13:04:00* Test Item Value Reference Range Interpretation Comme nts TROPONIN-I (test code = TROPI) < 2.5 pg/mL 27.36-66.23 L HCG SERUM [id number] 12:56:00* Test Item Value Reference Range Interpretation Comme nts HCG SERUM QUAL (test code = HCGQL) NEGATIVE NEGATIVE CBC W/AUTO [id number] 12:42:00* Test Item Value Reference Range Interpretation [...] 3/uL 0.0-0.20 N - XR CHEST 2 [id number] 12:10:00 [facility] 1985 Sex: FPatient Name: AZALIA DOS SANTOS Unit No: [id number] EXAMS: CPT CODE: [id number] XR CHEST 2 V 58406 Chest 2 views 02/20/2023 12:09 PM CLINICAL HISTORY: Pain COMPARISON: None available LOCATION: W1 FINDINGS: The lungs are clear, save for linear atelectasis or scarring in the left lung base. Cardiomediastinal contours are within normal limits. The central pulmonary vasculature is not engorged.The visualized skeleton is intact. IMPRESSION: No acute radiographic abnormalities. at 1210 Reported and signed by: LEELA HERNANDEZ M.D. CC: Kashmir Bruner MD; Maggi Mathur MD Technologist: ZOHREH CARREON RT(R) Fluoro Time: DAP (Gy m2): Air Kerma (mGy): Trscr Dt/Tm: 02/20/2023 (1210) by:[email or web address] Printed Date/Time: 02/20/2023 (1213) Name: AZALIA DOS SANTOS [facility] Phys: Kashmir Moncada MD [address] : 1985 Age: 37 Sex: [place] [address] Loc: P.ERS Exam Date: 02/20/2023 Status: REG ER PH: FAX: PAGE 1 Signed [id number] 18:05:00* Test Item Value Reference Range Interpretation Comme nts SURGICAL (test code = SR) RUN DATE: 02/09/23 [facility] - LAB PAGE 1 RUN TIME: 1805 Specimen Inquiry RUN USER: INTERFACE PATIENT: AZALIA DOS SANTOS LOC: P.9S POD C U #: [id number] AGE/SX: 37/F ROOM: [facility] RE02/08/23[facility] DR: Maggi Mathur MD : [birth year] BED: 1 DIS: STATUS: ADM IN TLOC: SPEC #: [id number] RECD: 02/08/23 STATUS: GISSELJason REQ #: [id number] ANTWON: 02/08/[address] [facility] [address]: Maggi Mathur MD ENTERED: 02/08/23 SP TYPE: SURGICAL OTHR DR: Bushra Primary or Family PhysicianORDERED: 52562/2, 24118/4, ANATOMIC SPEC HISTOLOGY: TISSUE ID BLK PCS [...] erythematous,no lesions or polyps are grossly seen. Search Engine Optimization Strategist sections are submitted in B1. CONTINUED ON NEXT PAGE RUN DATE: 02/09/23 [facility] - LAB PAGE 2 RUN TIME: 1805 Specimen Inquiry RUN USER: INTERFACE SPEC #: [id number] PATIENT: AZALIA DOS SANTOS #[id number] (Continued) GROSS DESCRIPTION (Continued) Technical component performed at [facility] [facility], [facility], [address] Immunohistochemistry: This test was developed and its [...] Obesity Signed SIGNATURE ON FILE QuintinLux 02/09/23 3025 END OF REPORT BASIC METABOLIC [id number] 06:45:00* Test Item Value Reference Range Interpretation [...] code = CA) 8.2 mg/dL 8.7-10.4 L [id number] 06:45:00* Test Item Value Reference Range Interpretation Comme nts PHOSPHOROUS (test code = PHOS) 1.0 mg/dL 2.4-5.1 L [id number] 06:45:00* Test Item Value Reference Range Interpretation Comme nts MAGNESIUM (test code = MAG) 1.7 mg/dL 1.6-2.6 N CBC W/AUTO [id number] 06:22:00* Test Item Value Reference Range Interpretation [...] 0.01 x10 3/uL 0.0-0.20 N UR HCG [id number] 06:11:00* Test Item Value Reference Range Interpretation Comme nts UR HCG QUAL (test code = HCGQLU) NEGATIVE NEGATIVE COMPREHENSIVE METABOLIC [id number] 13:43:00* Test Item Value Reference Range Interpretation [...] = ALKP) 83.0 U/L 46-116 N PROTHROMBIN [id number] 13:34:00* Test Item Value Reference Range Interpretation [...] systemic anticoagulation for high-risk conditions THROMBOPLASTIN TIME [id number] 13:34:00* Test Item Value Reference Range Interpretation Comme nts THROMBOPLASTIN TIME PARTIAL (test code = PTT) 38.7 secs 23.8-34.8 H INTERPRETATIVE D GASTON: Therapeutic range: Unfractionated Heparin: 60-90 seconds Argatroban: 60-90 seconds UA RFLX MICR CULT IF [id number] 13:28:00* Test Item Value Reference Range Interpretation [...] Description: CLEAN CATCHSpec Comments: PRE OPCBC W/AUTO [id number] 13:24:00* Test Item Value Reference Range Interpretation [...] = BA#) 0.02 x10 3/uL 0.0-0.20 N [id number] 11:02:00* Test Item Value Reference Range Interpretation Comme nts SURGICAL (test code = SR) RUN DATE: 02/03/23 [facility] - LAB PAGE 1 RUN TIME: 1102 Specimen Inquiry RUN USER: INTERFACE MARCELO ENT: LEVONAZALIA BETTINA LOC: RICHARD U #: [id number] AGE/SX: 37/F ROOM: RE02/01/23[facility] DR: Maggi Mathur MD : 83 BED: DIS: STATUS: DEP [facility] TLOC: SPEC #: [id number] RECD: 02/01/23 STATUS: DALLIN REByron #: [id number] ANTWON: 02/01/23-[address]: Maggi Mathur MD ENTERED: 02/01/23 SP TYPE: SURGICAL OTHR DR: Self Referred No Primary Care Physician Undefined ProviderORDERED: 99009/2, 24748, ANATOMIC SPEC HISTOLOGY: TISSUE ID BLK PCS [...] toto in B1. Technical component performed at [facility] [facility], [facility], [address] CONTINUED ON NEXT PAGE RUN DATE: 02/03/23 [facility] - LAB PAGE 2 RUN TIME: 1102 Specimen Inquiry RUN USER: INTERFACE SPEC #: [id number] PATIENT: AZALIA DOS SANTOS #[id number] (Continued) ------- GROSS DESCRIPTION (Continued) Immunohistochemistry: This [...] ------- Signed SIGNATURE ON FILE Que Chang P 02/03/23 1102 END OF REPORT UR HCG [id number] 10:18:00* Test Item Value Reference Range Interpretation Comme nts UR HCG QUAL (test code = HCGQLU) NEGATIVE NEGATIVE - MRI L-SPINE W/O [id number] 16:16:00Patient Name: AZALIA ROBERTSON Unit No: [id number] EXAMS: CPT CODE: [id number] MRI L-SPINE W/O CONT 18433 DIAGNOSIS: 1. At L1-2 there is no [...] hypertrophic and degenerative change. 5. At L5-S1 there is no evidence for disc bulge or herniation, bony canal or foraminal stenosis. COMMENT: COMPARISON: No prior exams available. Scans were performed in the sagittal and axial planes utilizing T1, T2 andinversion recovery images. Schmorl's node formation is seen [...] Technologist: JEANNETTE RIGGINS RT(R) Transcribed D/ (1616) t.AURAR.JCL [facility] NAME: AZALIA ROBERTSON [address] [facility] PHYS: Malia Vitale MD : 1985 AGE: 34 SEX: F [place], [place] [address] LOC: Y.MRI PHONE #: [phone] EXAM DATE: 11/01/2019 STATUS: REG CLI FAX #: [phone] RAD#: D/C DT PAGE 1 Signed Report Patient Name: AZALIA ROBERTSON Unit No: [id number] EXAMS: CPT CODE: [id number] MRI L-SPINE W/O CONT 12152 (Continued) Orig Print D/T: S: 11/01/2019 (1619) [facility] NAME: AZALIA ROBERTSON [address] [place] [address] PHYS: Malia Vitale MD : 1985 AGE: 34 SEX: F [place], [place] [address] [id number] LOC: CASSANDRA PHONE #: [phone] EXAM DATE: 11/01/2019 STATUS: REG CLI FAX #: [phone] RAD #: D/C DT PAGE 2 Signed Report Notes Upcoming Encounters Date/Time Note Provider Source Health Maintenance Due Date Last Done Comments Varicella Vaccines (1 of 2 - 13+ 2-dose series) 1997 IPV Vaccines (2 of 3 - Adult catch-up series) 01/02/2009 12/05/2008 HPV Vaccines (1 - 3-dose SCDM series) 10/12/2011 Pap Smear 08/17/2012 08/17/2009 Cervical Cancer Screening 2014 HPV/Cotest 2014 DTaP/Tdap/Td Vaccines (2 - Td or Tdap) 12/05/2018 12/05/2008 Annual Physical 06/16/2023 06/15/2022, 11/21, 03/29/2017 Mammogram 2024 Influenza Vaccine (#1) 2024 6, 11/08/2011, 11/30/2010, Additional history exists Respiratory Syncytial Virus (RSV) Adult Series (1 - 1-dose 75+ series) 10/12/2059 Meningococcal Vaccine Aged Out 12/05/2008 No medardo colin eligible based on patient's age to complete this topic Hepatitis A Vaccines Aged Out 02/05/2010, 07/30/2009, 12/05/2008 No longer eligible based on patient's age to complete this topic Hepatitis B Vaccines Completed 02/05/2010, 07/30/2009, 12/05/2008 HIB Vaccines Aged Out No longer eligi ble based on patient's age to complete this topic Pneumococcal Vaccine: Pediatrics (0 to 5 Years) and At-Risk Patients (6 to 64 Years) Aged Out No longer eligible based on patient's age to complete this topic Rotavirus Vaccines Aged Out No longer eligible based on patient's age to complete this topic [facility] [id number] 23:49:35 [place] [id number] 12:38:52* Other Medical (Routine) - Authorized Specialty Diagnoses / Procedures Referred By Contac t Referred To Contact Neurology Diagnoses Numbness Procedures EMG Jack Roche MD [address] [place] [address] Phone: tel: fax: Jack Roche MD [address] [place] [address] Phone: tel: fax: Referral ID Status Reason Start Date Expiration Date V isits Requested Visits Authorized [id number] Authorized 09/23/2024 03/22/2025 1 1 [facility] CenterKodgiiw1216-74-78 12:38:52* Jack Roche MD - 09/30/2024 12:30 PM CDT We reviewed EMG. Brain MRI result pending. She has not yet scheduled PT but has the number. We discussed wrist bracing for CTS. Will request labs from [facility] for causes of mild sensory PN. [facility] CenterXmakjua4575-08-16 12:38:52Upcoming Encounters Health Maintenance Due Date Last Done Comments Varicella Vaccines (1 of 2 - 13+ 2-dose series) 1997 IPV Vaccines (2 of 3 - Adult catch-up series) 01/02/2009 12/05/2008 HPV Vaccines (1 - 3-dose SCDM series) 10/12/2011 Pap Smear 08/17/2012 08/17/2009 Cervical Cancer Screening 2014 HPV/Cotest 2014 DTaP/Tdap/Td Vaccines (2 - Td or Tdap) 12/05/2018 12/05/2008 Annual Physical 06/16/2023 06/15/2022, 11/21, 03/29/2017 Influenza Vaccine (#1) 2024 6, 11/08/2011, 11/30/2010, Additional history exists Respiratory Syncytial Virus (RSV) Adult Series (1 - 1-dose 75+ series) 10/12/2059 Meningococcal Vaccine Aged Out 12/05/2008 No medardo colin eligible based on patient's age to complete this topic Hepatitis A Vaccines Aged Out 02/05/2010, 07/30/2009, 12/05/2008 No longer eligible based on patient's age to complete this topic Hepatitis B Vaccines Completed 02/05/2010, 07/30/2009, 12/05/2008 HIB Vaccines Aged Out No longer eligi ble based on patient's age to complete this topic Pneumococcal Vaccine: Pediatrics (0 to 5 Years) and At-Risk Patients (6 to 64 Years) Aged Out No longer eligible based on patient's age to complete this topic Rotavirus Vaccines Aged Out No longer eligible based on patient's age to complete this topic [facility] CenterEqknzdh7627-89-50 12:38:52 Diagnosis Numbness - Primary Disturbance of skin sensation Neuropathy Mononeuritis of unspecified site Carpal tunnel syndrome, unsp ecified laterality [facility] CenterMxopbcr7417-72-96 12:38:52 [place] [id number] 12:46:38* Consultation (Routine) - Pending Review Specialty Diagnoses / Procedures [facility] Referred To Contact Physical Therapy Diagnoses Cervical spondylosis Lumbar spondylosis Vertigo Jack Roche MD [address] [place] [address] Phone: tel: fax: Referral ID Status Reason Start Date Expiration Date Visits Requested Visits Authorized [id number] Pending Review Specialty Services Required 09/03/2024 08/29/2025 1 1 * Imaging (Routine) - Incomplete Specialty Diagnoses / Procedures Referred By Bindu Referred To Contact Radiology Diagnoses Cerebral cyst Procedures MRI brain w and wo IV contrast Jack Roche MD [address] [place] [address] Phone: tel: fax: Referral ID Status Reason Start Date Expiration Date V isits Requested Visits Authorized [id number] Incomplete 09/03/2024 08/29/2025 1 1 * Neurology (Routine) - Pending Review Specialty Diagnoses / Procedures Referred By Contac t Referred To Contact Diagnoses Numbness Procedures EMG Jack Roche MD [address] [place] [address] Phone: tel: fax: Referral ID Status Reason Start Date Expiration Date V isits Requested Visits Authorized [id number] Pending Review 09/03/2024 08/29/2025 1 1 [facility] CenterQeyleiy2130-09-66 12:46:38* * Consultation (Routine) - Authorized Specialty Diagnoses / Procedures Referred By Contac t Referred To Contact Neurology Diagnoses Other intervertebral disc displacement, thoracic region Other intervertebral disc displacement, lumbar region Other spondylosis with radiculopathy, cervical region Kylah Holland, NUCLEAR EQUIPMENT RESEARCH ENGINEER [address] [place] [address] Phone: tel: fax: Jack Roche MD [address] [place] [address] Phone: tel: fax: Referral ID Status Reason Start Date Expiration Date Visits Requested Visits Authorized [id number] Authorized Specialty Services Required 06/27/2024 02/19/2025 12 12 [facility] CenterIaoamdi2092-00-34 12:46:38* Jack Roche MD - 09/03/2024 10:20 AM CDT Images from the original note were not included. Azalia Dos Santos 1985 BP 140/74 | Ht 1.702 m (5' 7") | Wt 79.4 kg (175 lb) | BMI 27.41 kg/m? Chief Complaint Patient presents with Consult Pain Current Outpatient Medications: lamoTRIgine (LaMICtal XR) 100 mg tablet sustained-release 24 hour 24 hr tablet, Take 100 mg by mouth at bedtime., Disp: , Rfl: levothyroxine (Synthroid, Levoxyl) 6.25 mcg split tablet, Take 50 mcg by mouth 1 time each day., Disp: , Rfl: omeprazole (PriLOSEC) [address] capsule, , Disp: , Rfl: sertraline (Zoloft) 25 MG tablet, , Disp: , Rfl: traMADol (Ultram) 50 MG tablet, TAKE ONE (1) TABLET(S) BY MOUTH EVERY SIX HOURS NEEDED FOR BACK / NECK PAIN., Disp: , Rfl: Past Medical History:Diagnosis Date Anxiety Depression Hypertension No longer have it Peripheral neuropathy 2012 I believe Sleep apnea [id number] Weakness of limb 2010 No family history on file. No past surgical history on file. Tobacco Use: Medium Risk (09/03/2024)Patient History Smoking Tobacco Use: Former Smokeless Tobacco Use: Never Passive Exposure: Not on file Alcohol Use: Not on file AllergiesAllergen Reactions Codeine Nausea And Vomiting Review of SystemsConstitutional: Positive for fatigue. Endocrine: Positive for cold intolerance. Musculoskeletal: Positive for arthralgias, back pain, myalgias, neck pain and neck stiffness. Neurological: Positive for dizziness, tremors, speech difficulty, weakness, light-headedness and numbness. All other systems reviewed and are negative. Aisha Dos Santos is a 38 y.o. female with neck and low back issues. The has 3-4 years is the neck issue. She also has dizziness with some vertigo and balance issues. It is daily but comes and goes. She has brief vertigo with changes in position including rollingover in bed. She has numbness and tingling in her arms and legs. She does have more neck pain on the left. She takes tramadol and/or NSAIDs. MRI reports reviewed including brain with a non-enhancing cyst at the alcira with recommendation to repeat in 6 months (DOS 03/27/24), cervical and lumbar with multilevel degenerative disc disease. T-spine also showed mild disc bulge at T7-8 and T11-12. Labs reviewed include lipids, CMP, TSH, CBC, HgbA1c 5.0, vit D 54, B12 630, and folate 5.4. ObjectiveNeurological Exam Physical Exam Alert and oriented, attention language and memory are all grossly intact. Cranial nerves: Pupils equal round reactive to light extraocular movements intact normal facial sensation, no facial asymmetry tongue and palate midline and able to shrug shoulders. Oropharynx: Mallampati 1. Cardiovascular: Regular rate and rhythm. Lungs: Clear to auscultation bilaterally. Motor 5 out of 5 strength throughout upper and lower extremities bilaterally except 4/5 left shoulder abduction and left hip flexion. Muscle stretch reflexes +1 biceps triceps brachioradialis patella and ankle jerks. Tone: No ankle clonus. Sensation normal temp in upper and decreased in distal lower extremities. Coordination no dysmetria. Casual gait unremarkable. Muscular skeletal exam shoulders internally rotated head forward position and bilateral cervical paraspinal muscle spasm. Assessment & PlanDiagnoses and all orders for this visit: Numbness - EMG; Future Cervical spondylosis - methocarbamol (Robaxin) 750 MG tablet; Take 1 tab po up to 3 times a day as needed - Ambulatory referral to Physical Therapy; Future Lumbar spondylosis - Ambulatory referral to Physical Therapy; Future Cerebral cyst - MRI brain w and wo IV contrast; Future Vertigo - Ambulatory referral to Physical Therapy; Future Other orders - Ambulatory referral to Neurology EMG LUE and LLE, may amplify blood work depending on results including labs for fatigue. We had some discussion on body mechanics and the role of PT, and the importance of penitentiary compliance with HEP We discussed medication, how to take, and possible side effects Jack Roche MD [facility] [address] [facility], [address] [place] [address] PH: [phone] Electronically signed by Jack Roche MD 09/03/24 10:41 AM [facility] CenterXrlmkun4317-98-57 12:46:38Upcoming Encounters Scheduled Orders Name Type Priority Associated Diagnoses Orde r Schedule EMG Neurology Routine Numbness Expected: 08/20 (Approximate), Expires: 09/03/2025 MRI brain w and wo IV contrast Imaging Routine Cerebral cyst Expected: 2024 (Approximate), Expires: 09/03/2025 Scheduled Referrals Name Type Priority Associated Diagnoses Order Schedule Ambulatory referral to Physical Therapy Outpatient Referral Routine Cervical spondylosis Lumbar spondylosis Vertigo Expected: 09/03/2024 (Approximate), Expires: 09/03/2025 Health Maintenance Due Date Last Done Comments Annual Physical 10/12/1987 Varicella Vaccines (1 of 2 - 13+ 2-dose series) 1997 DTaP/Tdap/Td Vaccines (1 - Tdap) 10/12/2003 Hepatitis B Vaccines (1 of 3 - 19+ 3-dose series) 10/12/2003 Pap Smear 2005 HPV Vaccines (1 - 3-dose SCD M series) 10/12/2011 Cervical Cancer Screening 2014 HPV/Cotest 2014 Influenza Vaccine (#1) 2024 Respiratory Syncytial Virus (RSV) Adult Series (1 - 1-dose 75+ series) 10/12/2059 HIB Vaccines Aged Out No longer eligi ble based on patient's age to complete this topic Hepatitis A Vaccines Aged Out No long er eligible based on patient's age to complete this topic IPV Vaccines Aged Out No longer eligi ble based on patient's age to complete this topic Meningococcal Vaccine Aged Out No medardo colin eligible based on patient's age to complete this topic Pneumococcal Vaccine: Pediat rics (0 to 5 Years) and At-Risk Patients (6 to 64 Years) Aged Out No longer eligible b ased on patient's age to complete this topic Rotavirus Vaccines Aged Out No longer eligible based on patient's age to complete this topic [facility] CenterXkfyimb5677-94-39 12:46:38 Diagnosis Numbness - Primary Disturbance of skin sensation Cervical spondylosis Cervical spondylosis without myelopathy Lumbar spondylosis Lumbosacral spondylosis without myelopathy Cerebral cyst Cerebral cysts Vertigo Dizziness and giddiness [facility] CenterCzryusw3881-94-16 12:46:38 [facility] CenterCokrvdc5907-29-86 09:44:00 [facility] ([facility]) Med Order Sheet REPORT #: [id number] REPORT STATUS: Signed DATE: 03/10/23 TIME: 943 PATIENT: AZALIA DOS SANTOS UNIT #: [id number] ROOM #: [facility] BED: 1 : 84 AGE: 37 SEX: F ATTEND: Que Oro MD ADM AUTHOR: George Aguirre APRN ATTENTION *EDITS and/or ADDENDA must be made in Patient Keeper for this note. * * Edits and ammendments created in [facility] are not visible * * in Patient Keeper or the legal medical record ([facility]). * Discharge Medication Reconciliation DISCHARGE MEDICATION LIST [...] * * Edits and ammendments created in [facility] are not visible * * in Patient Keeper or the legal medical record ([facility]). * RPT #: [id number] END OF [id number] 09:44:00 [facility] ([facility]) Internal Med. D/C Summary REPORT #: [id number] REPORT STATUS: Signed DATE: 03/10/23 TIME: 943 PATIENT: AZALIA DOS SANTOS UNIT #: [id number] ROOM #: P.0711 BED: 1 : 84 AGE: 37 SEX: F ATTEND: Que Oro MD ADM AUTHOR: George Aguirre APRN ATTENTION *EDITS and/or ADDENDA must be made in Patient Keeper for this note. * * Edits and ammendments created in [employer] are not visible * * in Patient [...] tolerate a pureed diet. Discussed with Dr. Mathur. Ok for discharge. [...] MD Consulting provider 1:: . Consult phone:: [phone] Consult follow up timeframe:: In 1-2 weeks [...] pureed diet. Additional Discharge Routines:: PCP Follow-Up, Mica Splitter Follow-Up PCP follow up timeframe:: In 1-2 [...] * * Edits and ammendments created in [employer] are not visible * * in Patient Keeper or the legal medical record ([facility]). * RPT #: [id number] END OF [id number] 11:09:00 [facility] ([facility]) Internal Med. Progress Note REPORT #: [id number] REPORT STATUS: Signed DATE: 03/09/23 TIME: 1109 PATIENT: AZALIA DOS SANTOS UNIT #: [id number] ROOM #: P.0711 BED: 1 : 84 AGE: 37 SEX: F ATTEND: Que Oro MD ADM AUTHOR: George Aguirre APRN ATTENTION *EDITS and/or ADDENDA must be made in Patient Keeper for this note. * * Edits and ammendments created in [employer] are not visible * * in Patient Keeper or the legal medical record ([facility]). * -- CO-SIGNATURE -- COMMENTS: Patient seen and examined at bedside Plan of care discussed with patient, all questions answered to her satisfaction Agree with the findings as detailed by George Aguirre NP Plans for the multiple complex medical problems [...] * * Edits and ammendments created in [employer] are not visible * * in Patient Keeper or the legal medical record ([facility]). * RPT #: [id number] END OF REPORTYCGQO0423-03-11 21:16:00 [facility] ([facility]) Hospitalist H P REPORT #: [id number] REPORT STATUS: Signed DATE: 03/08/23 TIME: 2115 PATIENT: AZALIA ODS SANTOS UNIT #: [id number] ROOM #: P.0711 BED: 1 : 84 AGE: 37 SEX: F ATTEND: Que Oro MD ADM AUTHOR: Rosi Lagos CNP ATTENTION *EDITS and/or ADDENDA must be made in Patient Keeper for this note. * * Edits and ammendments created in [employer] are not visible * * in Patient Keeper or the legal medical record ([facility]). * -- CO-SIGNATURE -- COMMENTS: Discussed with [...] * * Edits and ammendments created in [employer] are not visible * * in Patient Keeper or the legal medical record ([facility]). * [facility] #: [id number] END OF [id number] 20:11:00 [facility] ([facility]) Med Order Sheet REPORT #: [id number] REPORT STATUS: Signed DATE: 03/08/23 TIME: 2010 PATIENT: AZALIA DOS SANTOS UNIT #: [id number] ROOM #: [facility] BED: 2 : 84 AGE: 37 SEX: F ATTEND: Que Oro MD [facility] AUTHOR: Rosi Lagos CNP ATTENTION *EDITS and/or ADDENDA must be made in Patient Keeper for this note. * * Edits and ammendments created in [facility] are not [facility] * * in Patient Keeper or the legal medical record ([facility]). * Admission Medication Reconciliation -- CONTINUED / [...] * * Edits and ammendments created in [employer] are not visible * * in Patient Keeper or the legal medical record ([facility]). * [facility] #: [id number] END OF [id number] 17:26:00 [facility] ([facility]) EMERGENCY PROVIDER REPORT REPORT#:[id number] REPORT STATUS: Signed DATE:03/08/23 TIME: 172 PATIENT: AZALIA DOS SANTOS UNIT #: [id number] ROOM: BED: AGE: 37 SEX: F PCP [...] 128/82 03/08 1724 B/P Mean 97 03/08 1723 O2 Delivery Room air 03/08 1723 Temp 36.7 03/08 172 Pulse 97 03/08 1724 Resp 16 03/08 1723 Last Documented: Result Date Time Pulse Ox 100 03/08 1724 B/P 128/82 03/08 1724 B/P Mean 97 03/08 1723 O2 Delivery Room air 03/08 1723 Temp 36.7 03/08 1723 Pulse 97 03/08 172 Resp 03/08 Review of Vital Signs Reviewed [...] Diatrizoate Meglum/ 30 ML X1ED STA 03/08 1727 DC 03/08 Diatrizoate Sod PO 03/08 1728 [...] 03/08 1724 Pulse 97 03/08 1724 Resp 03/08 1724 Last Documented: Result Date Time Pulse Ox 100 03/08 1724 B/P 128/82 03/08 1724 B/P Mean 97 03/08 1724 O2 Delivery Room air 03/08 172 Temp 36.7 03/08 1724 Pulse 97 03/08 1724 Resp 03/08 1724 All vital signs available at the time of this entry have been reviewed. Clinical Impression Clinical Impression Primary Impression: Dehydration Disposition Decision Hospitalize Hosp Physician Name Que Oro MD Hosp Physician Hospitalist Request Time 1857 Request Date 03/08/23 )( Accepts Hospitalization Yes )( Reason for Hospitalization dehydration )( Accepted Time 1857 )( Accepted Date 03/08/23 Call Information will see patient at 1900 RPT #:[id number] END OF [id number] 11:44:00 [facility] ([facility]) EMERGENCY PROVIDER REPORT REPORT#:[id number] REPORT STATUS: Signed DATE:02/20/23 TIME: 1144 PATIENT: AZALIA DOS SANTOS UNIT #: [id number] ROOM: BED: AGE: 37 SEX: F PCP [...] medication after surgery any more. Dc from hospital 02/10/23 Review of Systems ROS Statements All [...] Pulse 98 02/20 1125 Resp 18 02/20 112 Last Documented: Result Date Time Pulse Ox [...] % (Auto) (20.5 - 51.1 %) 21.0 [place] % (Auto) (1.7 - 9.3 %) 7.0 Eos % (Auto) (0.0 - 7.0 %) 3.0 Baso % (Auto) (0 - 2.5 %) 0.3 Neut # (Auto) (1.80 - 7.70 x10 3/uL) 7.65 Lymph # (Auto) (1.00 - 4.80 x10 3/uL) 2.35 [place] # (Auto) (0.00 - 0.80 x10 3/uL) [...] Maggi Mathur MD Follow-Up: 2-3 Days Address: [address] [place] [address] Departure Forms FREE OR LOW COST CLINICS WORK/SCHOOL EXCUSE-CAREGIVER 2 at 1343 RPT #:[id number] END OF [id number] 11:36:00 [facility] ([facility]) Med Order Sheet REPORT #: [id number] REPORT STATUS: Signed DATE: 02/10/23 TIME: 1136 PATIENT: AZALIA DOS SANTOS UNIT #: [id number] ROOM #: 0928 BED: 1 : 84 AGE: 37 SEX: F ATTEND: Maggi Mathur MD ADM AUTHOR: George Aguirre APRN ATTENTION *EDITS and/or ADDENDA must be made in Patient Keeper for this note. * * Edits and ammendments created in [employer] are not visible * * in Patient [...] * * Edits and ammendments created in [facility] are not visible * * in Patient Keeper or the legal medical record ([facility]). * RPT #: [id number] END OF [id number] 11:04:00 [facility] ([facility]) Internal Med. D/C Summary REPORT #: [id number] REPORT STATUS: Signed DATE: 02/10/23 TIME: 1104 PATIENT: AZALIA DOS SANTOS UNIT #: [id number] ROOM #: P.0928 BED: 1 : 84 AGE: 37 SEX: F ATTEND: Maggi Mathur MD ADM AUTHOR: George Aguirre APRN ATTENTION *EDITS and/or ADDENDA must be made in Patient Keeper for this note. * * Edits and ammendments created in [employer] are not visible * * in Patient Keeper or the legal medical record ([facility]). * -- CO-SIGNATURE -- COMMENTS: Patient seen [...] MD Consulting provider 1:: . Consult phone:: [phone] Consult follow up timeframe:: In 1-2 weeks Consult special instructions:: Patient to call for follow up appointment. PK DISCHARGE ORDERS: DC Order w/Instructions (No Carlos Eduardo) Details: Yes Discharge to:: Home/Self Care Diet:: Bariatric clear liquid diet Activity:: Do not Submerge Incision, No Lifting, No Lifting gt;20lbs, Shower Only Additional Discharge Routines:: PCP Follow-Up, Mica Splitter Follow-Up PCP follow up timeframe:: In 1-2 [...] * * Edits and ammendments created in [facility] are not visible * * in Patient Keeper or the legal medical record ([facility]). * RPT #: [id number] END OF [id number] 14:45:00 [facility] ([facility]) Internal Med. Progress Note REPORT #: [id number] REPORT STATUS: Signed DATE: 02/09/23 TIME: 1444 PATIENT: AZALIA DOS SANTOS UNIT #: [id number] ROOM #: P.0928 BED: 1 : 84 AGE: 37 SEX: F ATTEND: Maggi Mathur MD ADM AUTHOR: George Aguirre APRN ATTENTION *EDITS and/or ADDENDA must be made in Patient Keeper for this note. * * Edits and ammendments created in [employer] are not visible * * in Patient Keeper or the legal medical record ([facility]). * -- CO-SIGNATURE -- COMMENTS: Patient seen and examined at bedside Plan of care discussed with patient, all questions answered to her satisfaction Agree with the findings as detailed by George Aguirre NP Plans for the multiple complex medical problems [...] * * Edits and ammendments created in [facility] are not visible * * in Patient Keeper or the legal medical record ([facility]). * RPT #: [id number] END OF [id number] 09:37:00 [facility] ([facility]) Surgical Post Op Progress Note REPORT #: [id number] REPORT STATUS: Signed DATE: 02/09/23 TIME: 936 PATIENT: AZALIA DOS SANTOS UNIT #: [id number] ROOM #: P.0928 BED: 1 : 84 AGE: 37 SEX: F ATTEND: Maggi Mathur MD ADM AUTHOR: Maggi Mathur MD ATTENTION *EDITS and/or ADDENDA must be made in Patient Keeper for this note. * * Edits and ammendments created in [facility] are not visible * * in Patient Keeper or the legal medical record ([facility]). * -- ASSESSMENT AND PLAN -- GENERAL [...] * * Edits and ammendments created in [facility] are not [facility] * * in Patient Keeper or the legal medical record ([facility]). * RPT #: [id number] END OF [id number] 16:20:00 [facility] ([facility]) Med Order Sheet REPORT #: [id number] REPORT STATUS: Signed DATE: 02/08/23 TIME: 1620 PATIENT: AZALIA DOS SANTOS UNIT #: [id number] ROOM #: 0928 BED: 1 : 84 AGE: 37 SEX: F ATTEND: Maggi Mathur MD ADM AUTHOR: Rosi Lagos CNP ATTENTION *EDITS and/or ADDENDA must be made in Patient Keeper for this note. * * Edits and ammendments created in [employer] are not visible * * in Patient Keeper or the legal medical record ([facility]). * Admission Medication Reconciliation -- CONTINUED / [...] * * Edits and ammendments created in [facility] are not visible * * in Patient Keeper or the legal medical record ([facility]). * RPT #: [id number] END OF [id number] 16:07:00 [facility] ([facility]) Hospitalist Consultation REPORT #: [id number] REPORT STATUS: Signed DATE: 02/08/23 TIME: 160 PATIENT: AZALIA DOS SANTOS UNIT #: [id number] ROOM #: P.0928 BED: 1 : 84 AGE: 37 SEX: F ATTEND: Maggi Mathur MD [facility] AUTHOR: Rosi Lagos CNP ATTENTION *EDITS and/or ADDENDA must be made in Patient Keeper for this note. * * Edits and ammendments created in [facility] are not visible * * in Patient Keeper or the legal medical record ([facility]). * -- CO-SIGNATURE -- COMMENTS: Thank you for letting us participate in the care of your patient post operatively. Patient seen and examined, quite nauseated Plan of care discussed with patient, all questions answered to her satisfaction Agree with the findings as detailed by Colon SPECIAL EDUCATION CASE MANAGER Plans for the acute medical problems are [...] esophagitis, and morbid obesity who reported to [facility] for scheduled procedure. Today, she underwent a [...] * * Edits and ammendments created in [facility] are not visible * * in Patient Keeper or the legal medical record ([facility]). * [facility] #: [id number] END OF [id number]:56:[id number] [facility] [address] [place] [address] PATIENT NAME: AZALIA DOS SANTOS ADMIT DATE: 02/08/23 ACCOUNT NO: [id number] ROOM NO: [facility] AGE: 37 REPORT TYPE: CONSULTATION SEX: F [...] Dictated: 02/08/2023 08:56:33 Date Transcribed: 02/08/2023 09:37:47 KLEBER/JENNYFER Receipt ID: [id number] Authenticated by Maggi Mathur MD On 02/28/2023 04:53:27 PM PATIENT NAME: AZALIA DOS SANTOS at 0453 PATIENT NAME: AZALIA DOS SANTOS [id number] [place] [address] PATIENT NAME: AZALIA DOS SANTOS ADMIT DATE: 02/08/23 ACCOUNT NO: [id number] ROOM NO: [facility] AGE: 37 REPORT TYPE: OPERATIVE REPORT SEX: F ADMITTING PHYSICIAN:Maggi Mathur MD ATTENDING PHYSICIAN:Maggi Mathur MD OPERATION DATE: SURGEON: Maggi Mathur MD FUR DESIGNER: NORMA ROGERS PREOPERATIVE DIAGNOSES: 1. Hiatal hernia. [...] then removed the orogastric tube and a 34-Citizen Of [place] Bougie was advanced down into the pylorus. [...] Dictated: 02/08/2023 08:56:10 Date Transcribed: 02/08/2023 09:53:04 [facility] Receipt ID: [id number] Authenticated and Edited by Maggi Mathur MD On 02/28/23 4:54:08 PM at 0455 PATIENT NAME: AZALIA DOS SANTOS [id number] [place] [address] PATIENT NAME: AZALIA DOS SANTOS ADMIT DATE: 02/08/23 ACCOUNT NO: [id number] ROOM NO: [facility] AGE: 37 REPORT TYPE: eELECTROCARDIOGRAM SEX: F ADMITTING PHYSICIAN: Maggi Mathur MD ATTENDING PHYSICIAN: Maggi Mathur MD Order: [id number] Test Reason : PRE OP Test Date/Time [...] previous ECGs available Confirmed by NIMESH WALKER ([id number]) on 02/09/2023 8:47:12 AM Referred By: Maggi Mathur Confirmed by:NIMESH WALKER at 0847 PATIENT NAME: AZALIA DOS SANTOS [id number] [facility] [address] [place] [address] PATIENT NAME: AZALIA DOS SANTOS ADMIT DATE: 02/01/23 ACCOUNT NO: [id number] ROOM NO: AGE: 37 REPORT TYPE: ENDOSCOPY REPORT SEX: F ADMITTING PHYSICIAN: ATTENDING PHYSICIAN:Maggi Mathur MD [facility] Gastroenterology Patient Name: Levon Vieyra Attending MD: Maggi Mathur MD Procedure Date: 02/01/2023 10:06 AM Date of : 1985 Admit Type: Preadmit Age: 37 Room: Room 1 Gender: Female Note Status: Finalized Procedure: Upper GI endoscopy Pre Procedure Diagnosis: Heartburn Assistants: Maggi Mathur MD, Allyson Souza (Nurse), lAthea Rabago Anesthesia: Monitored Anesthesia Care Procedure: Pre-Anesthesia [...] verified by the physician, the nurse, the crane ladle person and the technician test systems in the endoscopy suite. Mental Status Examination: [...] AM Procedure Date: 02/01/2023 10:06:13 AM Provation {[id number]}.pdf ProVation FT PDF at 1030 PATIENT NAME: AZALIA DOS SANTOS 10:04:00 [facility] ([facility]) Med Order Sheet REPORT #: [id number] REPORT STATUS: Signed DATE: 02/01/23 TIME: 1004 PATIENT: AZALIA DOS SANTOS UNIT #: [id number] ROOM #: BED: : 84 AGE: 37 SEX: F ATTEND: Maggi Mathur MD ADM AUTHOR: Maggi Mathur MD ATTENTION *EDITS and/or ADDENDA must be made in Patient Keeper for this note. * * Edits and ammendments created in [facility] are not visible * * in Patient Keeper or the legal medical record ([facility]). * Discharge Medication Reconciliation Discharge Meds Rec Completed. No Reconciled Orders. at 1004 ATTENTION *EDITS and/or ADDENDA must be made in Patient Keeper for this note. * * Edits and ammendments created in [employer] are not visible * * in Patient Keeper or the legal medical record ([facility]). * [facility] #: [id number] END OF REPORTFORMERLY [facility]
[2024-11-28] MEDS ORDERED: NA CHLORIDE 0.9% 1,000 ML ONE (22:17)
[2024-11-28] MEDS ORDERED: ONDANSETRON 4 MG/2 ML VIAL ONE (22:17)
[2024-11-28] MEDS ORDERED: KETOROLAC 30 MG/ML INJ ONE (22:34)
[2024-11-28 22:43] LABS: Absolute Lymphocytes (CBC) 0.3 K/uL (0.7-4.9); Hematocrit 38.6 % (36.0-45.0); Hemoglobin 13.3 g/dL (12.0-15.0); MCH 30.1 pg (27.0-35.0); MCHC 34.4 g/dL (32.0-36.0); MCV 87.3 fL (80-100); MPV 7.8 fL (7.6-11.3); Nucleated RBC Absolute Count 0.0 (0-0); Nucleated Red Blood Cells % 0.3 % (0-0); RBC Red Blood Cell Count 4.43 M/uL (3.86-4.86); White Blood Count 5.40 thou/uL (4.3-10.9)
[2024-11-28 22:56] LABS: ALT/SGPT 28.0 U/L (13-56); AST/SGOT 27.0 U/L (15-37); Albumin 3.2 g/dL (3.4-5.0); Albumin/Globulin Ratio 0.8 (1.1-1.8); Alkaline Phosphatase 87.0 U/L (45-117); Anion Gap 10.0 mEq/L (5.0-15.0); BUN Blood Urea Nitrogen 10.0 mg/dL (7-18); Globulin 3.9 g/dL (2.3-3.5); Glucose Level 113.0 mg/dL (74-106); Lipase 27.0 U/L (13-75); Potassium 3.0 mEq/L (3.5-5.1)
[2024-11-28] MEDS ORDERED: POTASSIUM 25 MEQ EFFERV TAB ONE (23:18)
[2024-11-28] MEDS ORDERED: D5 0.9 NS 1,000 ML IV ONE (23:19)
--- NOTE | 2024-11-28 23:20 | EDPHYS ---
Physician Documentation [facility] Name: Azalia Palumbo Age: 39 yrs Sex: Female : 1985 Arrival Date: 11/28/2024 Time: 21:34 Bed 26 Private MD: ED Physician Brown Gomez HPI: 11/29 06:32 This 39 yrs old Female presents to ER via Ambulatory with complaints of Covid+, tt7 Abdominal Cramping, Diarrhea. 06:33 Patient reports that she was recently diagnosed with COVID-19 and since last night she tt7 has had multiple episodes of nausea with nonbloody nonbilious vomiting and diarrhea, she reports she has had difficulty tolerating oral intake and feels dehydrated, past medical history includes anxiety and major depression. 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 - Infectious Disease History:: Denies. - Social history:: Smoking status: Patient denies any tobacco usage or history of. ROS: 11/29 06:34 Constitutional: negative for fever. Cardiovascular: negative for chest pain. tt7 Respiratory: negative for shortness of breath. MS/Extremity: negative for injury and deformity. Skin: negative for rash. Neuro: negative for focal weakness. Abdomen/GI: Positive for abdominal pain, nausea, vomiting, and diarrhea, Exam: 06:34 Constitutional: vital signs reviewed, well appearing. Head/Face: normocephalic, tt7 atraumatic. Eyes: no conjunctival injection, anicteric sclerae. ENT: mucus membranes moist. Neck: trachea midline, no JVD, no meningismus. Chest/axilla: normal chest wall appearance and motion, nontender, no crepitus. Cardiovascular: regular rate and rhythm, no murmurs, no rubs, no lower extremity edema. Respiratory: normal respiratory effort, no accessory muscle use, lungs CTAB. Abdomen/GI: soft, nondistended, nontender, no guarding or rebound, negative Martinez's sign, no McBurney point tenderness. Back: normal ROM. Skin: warm, dry, intact, normal turgor, normal color, no rash. MS/ Extremity: normal ROM of extremities, no gross deformities. Neuro: alert and oriented with appropriate mental status, normal speech, follows commands, no focal neurologic deficits. Psych: appropriate mood and affect. Vital Signs: 11/28 22:08 BP 120 / 76; Pulse 114; Resp 18; Temp 99.8; Pulse Ox 100% on R/A; Weight 79.38 kg; rg5 Height 5 ft. 7 in. ; Pain 6/10; 23:29 BP 113 / 70; Pulse 100; Resp 18; Pulse Ox 97% ; rg5 11/29 00:21 BP 116 / 73; Pulse 98; Resp 20; Temp 98.4; Pulse Ox 100% ; jj7 11/28 22:08 Body Mass Index 27.41 (79.38 kg, 170.18 cm) rg5 11/28 22:08 Pain Scale: Adult rg5 MDM: 11/28 21:54 Medical Screening Exam initiated tt7 11/29 06:34 Differential diagnosis: Acute gastroenteritis, viral illness, pancreatitis, acute liver tt7 failure. Data reviewed: vital signs, nurses notes, lab test result(s). ED course: Patient was provided with IV fluids, laboratory studies overall show hypokalemia, potassium was replaced and patient was given IV antiemetics, after interventions patient felt significantly improved, was able to tolerate oral intake here in the emergency department without nausea, after completion of the patient's emergency department evaluation, I do not suspect a life-threatening or disabling process. Patient is medically stable and not in need of emergent medical intervention. I had a detailed discussion with the patient regarding the historical points, exam findings, emergency department evaluation, diagnostic results, and the discharge diagnosis. I instructed the patient on outpatient management of their condition. I discussed the need for outpatient follow-up with a primary care physician. I informed the patient on return precautions, including the need to return to the ED if symptoms do not improve, worsen, or if there are any questions or concerns that arise at home. The patient was discharged in stable condition. 11/28 22:15 Order name: CBC with Diff; Complete Time: 23:03 tt7 11/28 22:15 Order name: CMP; Complete Time: 23:03 tt7 11/28 22:15 Order name: Lipase; Complete Time: 23:03 tt7 11/28 22:15 Order name: IV Saline Lock; Complete Time: 22:29 tt7 11/28 22:15 Order name: Labs collected and sent; Complete Time: :29 tt7 11/28 23:06 Order name: PO challenge; Complete Time: 23:26 tt7 Administered Medications: 11/28 22:28 Drug: Ondansetron IVP 4 mg IVP once; over 2 minutes Route: IVP; Site: right antecubital;rg5 23:26 Follow up: Response: No adverse reaction rg5 22:28 Drug: NS 0.9% IV 1000 ml IV at 1 bolus Per protocol; to be given as a bolus over 60 rg5 minutes Route: IV; Rate: 1 bolus; Site: right antecubital; 11/29 00:20 Follow up: IV Status: Completed infusion jj7 11/28 22:28 Drug: Droperidol IVP 1.25 mg IVP once Route: IVP; Site: right antecubital; rg5 23:26 Follow up: Response: No adverse reaction rg5 22:38 Drug: Ketorolac IVP 15 mg IVP once Route: IVP; Site: right antecubital; rg5 23:26 Follow up: Response: No adverse reaction; Pain is decreased rg5 23:26 Follow up: Response: No adverse reaction; Pain is decreased rg5 23:26 Drug: D5-NS IV 1000 ml IV at bolus bolus Route: IV; Rate: bolus; Site: right rg5 antecubital; 11/29 00:20 Follow up: IV Status: Completed infusion jj7 11/28 23:26 Drug: Potassium PO Effervescent Tablet 50 mEq PO once; dissolve in 4 ounces of water or rg5 juice Route: PO; 11/29 00:22 Follow up: Response: No adverse reaction jj7 Disposition: 06:36 Co-signature as Attending Physician, Brown Gomez DO. tt7 Disposition Summary: 11/28/24 23:19 Discharge Ordered Notes: Location: Home tt7 Problem: new tt7 Symptoms: have improved tt7 Condition: Stable tt7 Diagnosis - Nausea with vomiting, unspecified tt7 Followup: tt7 - With: Emergency Department - When: As needed - Reason: Followup: tt7 - With: Private Physician - When: 1 - 2 days - Reason: Recheck today's complaints, Re-evaluation by your physician Discharge Instructions: - Discharge Summary Sheet tt7 - Nausea and Vomiting, Adult tt7 Forms: - Medication Reconciliation Form tt7 - Antibiotic Education tt7 - Prescription Opioid Use tt7 - Patient Portal Instructions tt7 - Leadership Thank You Letter tt7 Prescriptions: - Zofran 4 mg Oral tablet - take 1 tablet ORAL route every 8 hours As needed; 20 tablet; Refills: 0, tt7 Product Selection Permitted Signatures: Dispatcher [employer] EDFran Duarte, RN RN rg5 Brown Gomez DO DO tt7 Hiram Armas RN jj7
--- NOTE | 2024-11-28 23:20 | ER ---
Nurse's Notes [facility] Name: Azalia Palumbo Age: 39 yrs Sex: Female : 1985 Arrival Date: 11/28/2024 Time: 21:34 Bed 26 Private MD: Diagnosis: Nausea with vomiting, unspecified Presentation: 11/28 22:01 Chief complaint: Patient states: my stomach is hurting, I cant hold down anything since rg5 last night, I had episodes of diarrhea \T\ nauseated. Coronavirus screen: Client denies travel out of the [place] in the last 14 days. Ebola Screen: Patient negative for fever greater than or equal to 101.5 degrees Fahrenheit, and additional compatible Ebola Virus Disease symptoms Patient denies exposure to infectious person. Patient denies travel to an Ebola-affected area in the 21 days before illness onset. Initial Sepsis Screen: Does the patient meet any 2 criteria? No. Patient's initial sepsis screen is negative. Does the patient have a suspected source of infection? No. Patient's initial sepsis screen is negative. Risk Assessment: Do you want to hurt yourself or someone else? Patient reports no desire to harm self or others. Onset of symptoms was November 27, 2024 at 23:00. 22:01 Method Of Arrival: Ambulatory rg5 22:01 Acuity: SONI 3 rg5 Triage Assessment: 22:05 General: Appears uncomfortable, Behavior is calm, cooperative, appropriate for age. rg5 General: Reports fever for 12-24 hours, feeling ill for 12-24 hours, fatigue for 0-12 hours. Pain: Complains of pain in back and abdomen Quality of pain is described as aching. EENT: No deficits noted. Neuro: Level of Consciousness is awake, alert, obeys commands, Oriented to person, place, time, situation. Cardiovascular: Patient's skin is warm and dry. Respiratory: Reports cough that is Airway is patent Trachea midline Respiratory pattern is regular. GI: Reports lower abdominal pain, upper abdominal pain, diarrhea, nausea. : No signs and/or symptoms were reported regarding the genitourinary system. Derm: Skin is intact, Skin is dry, Skin is normal. Musculoskeletal: Circulation, motion, and sensation intact. Range of motion: intact in all extremities. 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 - Infectious Disease History:: Denies. - Social history:: Smoking status: Patient denies any tobacco usage or history of. Screenin:11 [facility] ED Fall Risk Assessment (Adult) History of falling in the last 3 months, rg5 including since admission No falls in past 3 months (0 pts) Confusion or Disorientation No (0 pts) Intoxicated or Sedated No (0 pts) Impaired Gait No (0 pts) Mobility Assist Device Used No (0 pt) Altered Elimination No (0 pt) Score/Fall Risk Level 0 - 2 = Low Risk Oriented to surroundings, Maintained a safe environment. Abuse screen: Denies threats or abuse. Nutritional screening: No deficits noted. Tuberculosis screening: No symptoms or risk factors identified. Assessment: 22:10 General: Reports fever for feeling ill for fatigue for. Pain: Complains of pain in back rg5 and chest. Respiratory: Reports cough that is. 23:30 Reassessment: Patient and/or family updated on plan of care and expected duration. Pain rg5 level reassessed. Patient is alert, oriented x 3, equal unlabored respirations, skin warm/dry/pink. Patient states symptoms have improved. Vital Signs: 22:08 BP 120 / 76; Pulse 114; Resp 18; Temp 99.8; Pulse Ox 100% on R/A; Weight 79.38 kg; rg5 Height 5 ft. 7 in. ; Pain 6/10; 23:29 BP 113 / 70; Pulse 100; Resp 18; Pulse Ox 97% ; rg5 11/29 00:21 BP 116 / 73; Pulse 98; Resp 20; Temp 98.4; Pulse Ox 100% ; jj7 11/28 22:08 Body Mass Index 27.41 (79.38 kg, 170.18 cm) rg5 11/28 22:08 Pain Scale: Adult rg5 ED Course: 11/28 21:36 Patient arrived in ED. mr 21:54 Brown Gomez DO is Attending Physician. tt7 21:56 Fran Raman, JUNE is Primary Nurse. rg5 22:05 Triage completed. rg5 22:05 Arm band placed on. rg5 22:11 Patient has correct armband on for positive identification. Bed in low position. Call rg5 light in reach. Side rails up X 1. Door closed. Noise minimized. 22:11 No provider procedures requiring assistance completed. rg5 22:29 Inserted saline lock: 20 gauge in right antecubital area, using aseptic technique. rg5 Blood collected. Flushed with 10 mL NS. 11/29 00:21 IV discontinued, intact, bleeding controlled, No redness/swelling at site. Pressure jj7 dressing applied. Administered Medications: 11/28 22:28 Drug: Ondansetron IVP 4 mg IVP once; over 2 minutes Route: IVP; Site: right antecubital;rg5 23:26 Follow up: Response: No adverse reaction rg5 22:28 Drug: NS 0.9% IV 1000 ml IV at 1 bolus Per protocol; to be given as a bolus over 60 rg5 minutes Route: IV; Rate: 1 bolus; Site: right antecubital; 11/29 00:20 Follow up: IV Status: Completed infusion jj7 11/28 22:28 Drug: Droperidol IVP 1.25 mg IVP once Route: IVP; Site: right antecubital; rg5 23:26 Follow up: Response: No adverse reaction rg5 22:38 Drug: Ketorolac IVP 15 mg IVP once Route: IVP; Site: right antecubital; rg5 23:26 Follow up: Response: No adverse reaction; Pain is decreased rg5 23:26 Follow up: Response: No adverse reaction; Pain is decreased rg5 23:26 Drug: D5-NS IV 1000 ml IV at bolus bolus Route: IV; Rate: bolus; Site: right rg5 antecubital; 11/29 00:20 Follow up: IV Status: Completed infusion jj7 11/28 23:26 Drug: Potassium PO Effervescent Tablet 50 mEq PO once; dissolve in 4 ounces of water or rg5 juice Route: PO; 11/29 00:22 Follow up: Response: No adverse reaction jj7 Medication: 11/28 22:11 VIS not applicable for this client. rg5 Outcome: 23:19 Discharge ordered by tt7 11/29 00:21 Discharged to home ambulatory, jj7 Condition: improved Discharge instructions given to patient, Instructed on discharge instructions, follow up and referral plans. medication usage, Demonstrated understanding of instructions, follow-up care, medications, Prescriptions given X 1, 00:22 Patient left the ED. jj7 Signatures: Juliet Loaiza, Reg Reg mr ArmasHiram, RN RN jj7 Fran Raman RN RN rg5 Brown Gomez, DO tt7
[2024-11-29 01:02] VITALS: BP 116/73; TEMP 98.4; O2SAT 100
== END 2024-11-29 00:22 | disposition home or self-care (01) ==
LOC: ER 21:34
DX: R11.2 Nausea with vomiting, unspecified (principal); R19.7 Diarrhea, unspecified
CPT/HCPCS: 96361; 85025; 36415; 83690; 80053; 96375; 96374; 99284; J1885; J2405; J1790; J7042; J7030